=== PATIENT | female | born 1980 | race Hispanic/Latino ===

== ENCOUNTER 2017-08-17 18:57 | Emergency (ER) | payer SELFPAY ==
--- NOTE | 2017-08-17 21:08 | ER ---
Nurse's Notes [facility] Name: Etelvina Salcedo Age: 36 yrs Sex: Female : 1980 Arrival Date: 08/17/2017 Time: 18:58 Bed Waiting Private MD: Miguel Ángel Ramírez E Diagnosis: Presentation: 08/17 19:44 Presenting complaint: Patient states: Flu like symptoms for 2 days. Transition of care: aj patient was not received from another setting of care. Onset of symptoms was August 15, 2017. Care prior to arrival: None. 19:44 Method Of Arrival: Ambulatory 19:44 Acuity: EARLINE 4 Triage Assessment: 19:45 General: Appears in no apparent distress. comfortable, Behavior is calm, cooperative, aj appropriate for age. Pain: Denies pain. EENT: Reports nasal congestion nasal discharge. Neuro: Level of Consciousness is awake, alert, obeys commands, Oriented to person, place, time, situation. Respiratory: Reports cough that is Airway is patent Respiratory effort is even, unlabored, Respiratory pattern is regular, symmetrical. Derm: Skin is intact, is healthy with good turgor, Skin is pink, warm \T\ dry. normal. 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 - Social history:: Smoking status: Patient/guardian denies using tobacco. Vital Signs: 19:45 BP 142 / 84; Pulse 95; Resp 20; Temp 98.1; Pulse Ox 100% on R/A; Weight 101.15 kg; aj Height 5 ft. 2 in. (157.48 cm); 19:45 Body Mass Index 40.79 (101.15 kg, 157.48 cm) ED Course: 18:58 Patient arrived in ED. as 18:58 Miguel Ángel Ramírez MD is Private Physician. as 19:45 Triage completed. aj 19:45 Arm band placed on left wrist. Patient placed in waiting room, Patient notified of wait aj time. Labs ordered per protocol. 20:10 Patient's name was called from ER lobby. No response. lp1 21:06 Patient's name was called from ER lobby. No response. Unable to locate patient. Will aj disposition as left without being seen by a provider. 21:07 Barrera Weaver MD is Attending Physician. aj Administered Medications: No medications were administered Outcome: 21:06 Eloped from waiting room, before seeing physician Time discovered patient gone: August aj 2017 at 21:07 21:07 Patient left the ED. aj Signatures: Christine Corey, RN RN aj Kendy Chicas Laura, RN RN lp1
[2017-08-17 21:18] VITALS: BP 142/84; TEMP 98.1; O2SAT 100
== END 2017-08-17 21:07 | disposition left against medical advice (07) ==
LOC: ER 18:57
DX: Z53.21 Procedure and treatment not carried out due to patient leaving prior to being seen by health care provider (principal)
CPT/HCPCS: 87804; 99282

== ENCOUNTER 2017-08-21 10:14 | Emergency (ER) | payer OTHER ==
[2017-08-21] MEDS ORDERED: ACETAMINOPHEN 160 MG/5 ML UCUP ONE (10:24)
--- NOTE | 2017-08-21 11:52 | ER ---
Nurse's Notes [facility] Name: Etelvina Salcedo Age: 36 yrs Sex: Female : 1980 Arrival Date: 08/21/2017 Time: 10:15 Bed 12 Private MD: Diagnosis: Cough;Acute pharyngitis Presentation: 08/21 10:39 Presenting complaint: Patient states: "I Have been sick with fever, coughing, and lk1 throwing up since last week. I was here Monday and I left. I went to urgent care last night and got a Toradol shot in my butt. I woke up in the middle of the night with cramps in my leg and now my leg hurts. I think I am having a reaction to the shot. The doctor last night gave me medicines that I haven't picked up yet and they told me to take over the counter cough medicine. My flu test was negative". Transition of care: patient was not received from another setting of care. Onset of symptoms was August 17, 2017. Care prior to arrival: None. 10:39 Method Of Arrival: Ambulatory lk1 10:39 Acuity: EARLINE 4 lk1 11:15 Initial Sepsis Screen: Does the patient meet any 2 criteria? No. Patient's initial iw sepsis screen is negative. Does the patient have a suspected source of infection? No. Patient initial sepsis screen negative. Triage Assessment: 10:43 General: Appears ill, Behavior is calm, cooperative, appropriate for age. Pain: lk1 Complains of pain in head Pain currently is 7 out of 10 on a pain scale. GI: Reports nausea. 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 - Social history:: Smoking status: Patient/guardian denies using tobacco. - Family history:: not pertinent. - Hospitalizations: : No recent hospitalization is reported. Screenin:30 Abuse screen: Denies threats or abuse. Denies injuries from another. Nutritional iw screening: No deficits noted. Tuberculosis screening: No symptoms or risk factors identified. Fall Risk None identified. Assessment: 11:30 General: Appears in no apparent distress. Behavior is calm, cooperative. Pain: iw Complains of pain in throat. Neuro: Level of Consciousness is awake, alert, obeys commands, Moves all extremities. Full function. Cardiovascular: Patient's skin is warm and dry. GI: Abdomen is non-distended. Derm: Skin is pink, warm \\T\\ dry. normal. Musculoskeletal: Range of motion: intact in all extremities. Vital Signs: 10:43 BP 114 / 69; Pulse 92; Resp 16; Temp 96.6(TE); Pulse Ox 100% on R/A; Weight 102.51 kg lk1 (R); Height 5 ft. 2 in. (157.48 cm) (R); Pain 7/10; 10:43 Body Mass Index 41.34 (102.51 kg, 157.48 cm) lk1 ED Course: 10:15 Patient arrived in ED. as 10:42 Triage completed. lk1 10:46 Arm band placed on right wrist. lk1 11:21 Aamir Harrington MD is Attending Physician. rn 11:30 Patient has correct armband on for positive identification. iw 11:30 No provider procedures requiring assistance completed. Patient did not have IV access iw during this emergency room visit. 12:06 Audrey Arambula, RN is Primary Nurse. iw Administered Medications: No medications were administered Outcome: 11:52 Discharge ordered by . rn 12:05 Discharged to home ambulatory. iw 12:05 Condition: good 12:05 Discharge instructions given to patient, Instructed on discharge instructions, follow up and referral plans. medication usage, Demonstrated understanding of instructions, follow-up care, medications, Prescriptions given X 1. 12:06 Patient left the ED. iw Signatures: Kendy Chicas as Audrey Arambula, RN RN iw Aamir Harrington MD MD rn Kluge, Leah, RN RN lk1
--- NOTE | 2017-08-21 11:52 | EDPHYS ---
Physician Documentation [facility] Name: Etelvina Salcedo Age: 36 yrs Sex: Female : 1980 Arrival Date: 08/21/2017 Time: 10:15 Bed 12 Private MD: ED Physician Aamir Harrington HPI: 08/21 11:47 This 36 yrs old Female presents to ER via Ambulatory with complaints of Leg rn Pain, Fever, Cough, Vomiting. 11:48 The patient or guardian reports cough, described as moderate, with productive sputum, rn that is green. 11:48 Onset: The symptoms/episode began/occurred 1 week(s) ago. Severity of symptoms: At rn their worst the symptoms were moderate, in the emergency department the symptoms are unchanged. Associated signs and symptoms: Pertinent positives: sore throat. The patient has experienced a previous episode. The patient has been recently seen by a physician: The patient has been recently seen at an urgent care. Reports 1 week of cough, congestion, sore throat, can't stop coughing, no fever, + green sputum, told to take OTC meds by urgent care, still coughing, no lung issues, non-smoker, no hx of dvt/pe. . 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 - Social history:: Smoking status: Patient/guardian denies using tobacco. - Family history:: not pertinent. - Hospitalizations: : No recent hospitalization is reported. ROS: 11:48 Constitutional: Negative for fever, chills, and weight loss, Eyes: Negative for injury, rn pain, redness, and discharge, ENT: + sore throat and congestion Neck: Negative for injury, pain, and swelling, Cardiovascular: Negative for chest pain, palpitations, and edema, Respiratory: Negative for wheezing, and pleuritic chest pain, Abdomen/GI: Negative for abdominal pain, nausea, vomiting, diarrhea, and constipation, Back: Negative for injury and pain, MS/Extremity: Negative for injury and deformity, Skin: Negative for injury, rash, and discoloration, Neuro: Negative for headache, weakness, numbness, tingling, and seizure. Exam: 11:48 Constitutional: This is a well developed, well nourished patient who is awake, alert, rn and in no acute distress. Head/Face: Normocephalic, atraumatic. Eyes: Pupils equal round and reactive to light, extra-ocular motions intact. Lids and lashes normal. Conjunctiva and sclera are non-icteric and not injected. Cornea within normal limits. Periorbital areas with no swelling, redness, or edema. ENT: + mild pharyngeal erythema, no stridor, no masses Neck: Trachea midline, no thyromegaly or masses palpated, and no cervical lymphadenopathy. Supple, full range of motion without nuchal rigidity, or vertebral point tenderness. No Meningismus. Cardiovascular: Regular rate and rhythm with a normal S1 and S2. No gallops, murmurs, or rubs. Normal PMI, no JVD. No pulse deficits. Respiratory: Lungs have equal breath sounds bilaterally, clear to auscultation and percussion. No rales, rhonchi or wheezes noted. No increased work of breathing, no retractions or nasal flaring. MS/ Extremity: Pulses equal, no cyanosis. Neurovascular intact. Full, normal range of motion. Equal circumference. Neuro: Awake and alert, GCS 15, oriented to person, place, time, and situation. Cranial nerves II-XII grossly intact. Motor strength 5/5 in all extremities. Sensory grossly intact. Cerebellar exam normal. Normal gait. Vital Signs: 10:43 BP 114 / 69; Pulse 92; Resp 16; Temp 96.6(TE); Pulse Ox 100% on R/A; Weight 102.51 kg lk1 (R); Height 5 ft. 2 in. (157.48 cm) (R); Pain 7/10; 10:43 Body Mass Index 41.34 (102.51 kg, 157.48 cm) lk1 MDM: 11:21 Patient medically screened. rn 11:48 Differential Diagnosis: Bronchitis Upper Respiratory Infection Sinusitis Pharyngitis rn Viral Syndrome Pneumonia. Data reviewed: vital signs, nurses notes, and as a result, I will discharge patient. Counseling: I had a detailed discussion with the patient and/or guardian regarding: the historical points, exam findings, and any diagnostic results supporting the discharge/admit diagnosis, the need for outpatient follow up, to return to the emergency department if symptoms worsen or persist or if there are any questions or concerns that arise at home. Special discussion: I discussed with the patient/guardian in detail that at this point there is no indication for admission to the hospital. It is understood, however, that if the symptoms persist or worsen the patient needs to return immediately for re-evaluation. Administered Medications: No medications were administered Disposition: 08/21/17 11:52 Discharged to Home. Impression: Cough, Acute pharyngitis. - Condition is Stable. - Discharge Instructions: Pharyngitis, Cough, Adult. - Prescriptions for Zithromax Z- Joe 250 mg Oral Tablet - take 1 tablet by ORAL route as directed for 5 days Day 1 - take two (2) tablets one time. Day 2, 3, 4 , 5 take one (1) tablet once daily.; 6 tablet. - Medication Reconciliation Form, Thank You Letter, Antibiotic Education, Prescription Opioid Use form. - Follow up: Private Physician; When: As needed; Reason: Recheck today's complaints, Re-evaluation by your physician. - Problem is an ongoing problem. - Symptoms have improved. Signatures: Audrey Arambula, RN Aamir Munson MD MD rn Kluge, Leah, RN RN lk1
[2017-08-21 12:16] VITALS: BP 114/69; TEMP 96.6; O2SAT 100
== END 2017-08-21 12:06 | disposition home or self-care (01) ==
LOC: ER 10:14
DX: J02.9 Acute pharyngitis, unspecified (principal)
CPT/HCPCS: 99282

== ENCOUNTER 2018-04-06 17:52 | Emergency (ER) | payer SELFPAY ==
[2018-04-06] MEDS ORDERED: MORPHINE 4 MG/ML SYR ONE (18:35)
[2018-04-06] MEDS ORDERED: ONDANSETRON 4 MG (ODT) TAB ONE (18:36)
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
[2018-04-06] MEDS ORDERED: HYDROCODONE/APAP 5/325 MG TAB ONE (21:18)
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
[2018-04-06 23:40] VITALS: BP 139/91; TEMP 98.8; O2SAT 98
== END 2018-04-06 22:06 | disposition home or self-care (01) ==
LOC: ER 17:52
DX: S13.4XXA Sprain of ligaments of cervical spine, initial encounter (principal); V49.40XA Driver injured in collision with unspecified motor vehicles in traffic accident, initial encounter
CPT/HCPCS: 70450; 71250; 72125; 96372; 99285

== ENCOUNTER 2018-07-24 15:29 | Emergency (ER) | payer SELFPAY ==
[2018-07-24 16:58] LABS: Absolute Lymphocytes (CBC) 4.1 K/uL (0.7-4.9); Absolute Monocytes 0.8 K/uL (0.1-1.3); Absolute Neutrophil 4.4 K/uL (1.8-8.0); Basophils % 0.3 % (0-1.3); Eosinophils % 2.4 % (0-4.4); Hematocrit 44.2 % (36.0-45.0); Lymphocytes % 42.7 % (15.3-44.8); MPV 8.6 fL (7.6-11.3); Monocytes % 8.8 % (3.3-12.3); RBC Red Blood Cell Count 4.72 M/uL (3.86-4.86)
[2018-07-24 17:04] LABS: ALT/SGPT 22 U/L (12-78); AST/SGOT 18 U/L (15-37); Albumin 3.7 g/dL (3.4-5.0); Alkaline Phosphatase 151 U/L (45-117); BUN Blood Urea Nitrogen 16 mg/dL (7-18); Bicarbonate 28 mmol/L (21-32); Bilirubin Direct 0.1 mg/dL (0-0.2); Bilirubin Total 0.4 mg/dL (0.2-1.0); Glucose Level 63 mg/dL (74-106); Magnesium 2.3 mg/dL (1.8-2.4); NT PRO-BNP 45 pg/mL (<125); Potassium 4.3 mmol/L (3.5-5.1); Protein, Total 7.4 g/dL (6.4-8.2); Sodium Level 139 mmol/L (136-145); Troponin (Emerg Dept Use Only) < 0.02 ng/mL (0.0-0.045)
--- NOTE | 2018-07-24 17:13 | EDPHYS ---
Physician Documentation [facility] Name: Etelvina Salcedo Age: 37 yrs Sex: Female : 1980 Arrival Date: 07/24/2018 Time: 15:32 Bed 24 Private MD: Miguel Ángel Ramírez E ED Physician Barrera Weaver HPI: 07/24 16:23 This 37 yrs old Female presents to ER via Ambulatory with complaints of Back kristian Pain, Shoulder numbness. 16:23 The patient presents with pain left shoulder discomfort. The symptoms are located in kristian the left scapular area. Onset: The symptoms/episode began/occurred today. The pain radiates to the anterior aspect of left shoulder, left bicep, posterior aspect of left shoulder and left tricep. Associated signs and symptoms: The patient has no apparent associated signs or symptoms. Modifying factors: The patient symptoms are alleviated by nothing, the patient symptoms are aggravated by nothing. Severity of symptoms: At their worst the symptoms were mild, in the emergency department the symptoms are unchanged. The patient has not experienced similar symptoms in the past. 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 - Social history:: Smoking status: unknown. - Family history:: not pertinent. - Ebola Screening: : No symptoms or risks identified at this time. ROS: 16:23 Constitutional: Negative for fever, chills, and weight loss, Eyes: Negative for injury, kristian pain, redness, and discharge, ENT: Negative for injury, pain, and discharge, Neck: Negative for injury, pain, and swelling, Cardiovascular: Negative for chest pain, palpitations, and edema, Respiratory: Negative for shortness of breath, cough, wheezing, and pleuritic chest pain, Abdomen/GI: Negative for abdominal pain, nausea, vomiting, diarrhea, and constipation, Back: Negative for injury and pain, : Negative for injury, bleeding, discharge, and swelling, Skin: Negative for injury, rash, and discoloration, Neuro: Negative for headache, weakness, numbness, tingling, and seizure, Psych: Negative for depression, anxiety, suicide ideation, homicidal ideation, and hallucinations, Allergy/Immunology: Negative for hives, rash, and allergies, Endocrine: Negative for neck swelling, polydipsia, polyuria, polyphagia, and marked weight changes. 16:23 MS/extremity: Positive for tingling, of the left arm. Exam: 16:26 Constitutional: This is a well developed, well nourished patient who is awake, alert, kristian and in no acute distress. Head/Face: Normocephalic, atraumatic. Eyes: Pupils equal round and reactive to light, extra-ocular motions intact. Lids and lashes normal. Conjunctiva and sclera are non-icteric and not injected. Cornea within normal limits. Periorbital areas with no swelling, redness, or edema. ENT: Nares patent. No nasal discharge, no septal abnormalities noted. Tympanic membranes are normal and external auditory canals are clear. Oropharynx with no redness, swelling, or masses, exudates, or evidence of obstruction, uvula midline. Mucous membranes moist. Neck: Trachea midline, no thyromegaly or masses palpated, and no cervical lymphadenopathy. Supple, full range of motion without nuchal rigidity, or vertebral point tenderness. No Meningismus. Chest/axilla: Normal chest wall appearance and motion. Nontender with no deformity. No lesions are appreciated. Cardiovascular: Regular rate and rhythm with a normal S1 and S2. No gallops, murmurs, or rubs. Normal PMI, no JVD. No pulse deficits. Respiratory: Lungs have equal breath sounds bilaterally, clear to auscultation and percussion. No rales, rhonchi or wheezes noted. No increased work of breathing, no retractions or nasal flaring. Abdomen/GI: Soft, non-tender, with normal bowel sounds. No distension or tympany. No guarding or rebound. No evidence of tenderness throughout. Back: No spinal tenderness. No costovertebral tenderness. Full range of motion. Skin: Warm, dry with normal turgor. Normal color with no rashes, no lesions, and no evidence of cellulitis. MS/ Extremity: Pulses equal, no cyanosis. Neurovascular intact. Full, normal range of motion. Neuro: Awake and alert, GCS 15, oriented to person, place, time, and situation. Cranial nerves II-XII grossly intact. Motor strength 5/5 in all extremities. Sensory grossly intact. Cerebellar exam normal. Normal gait. Psych: Awake, alert, with orientation to person, place and time. Behavior, mood, and affect are within normal limits. 16:26 Musculoskeletal/extremity: DVT Exam: No signs of deep vein thrombosis. no pain, no swelling, no tenderness, negative Homans' sign noted on exam, no appreciated bluish discoloration, no erythema, no increased warmth. Vital Signs: 15:45 BP 122 / 77; Pulse 90; Resp 18; Temp 97.5; Pulse Ox 99% ; Weight 99.79 kg; Height 5 ft. sv 2 in. (157.48 cm); Pain 6/10; 16:45 BP 122 / 77; Pulse 71; Resp 20; Temp 98.3; Pulse Ox 100% ; lt1 17:44 BP 121 / 78; Pulse 80; Resp 18; Pulse Ox 100% on R/A; Pain 0/10; mg2 15:45 Body Mass Index 40.24 (99.79 kg, 157.48 cm) sv MDM: 15:47 Patient medically screened. [facility] 16:26 Data reviewed: vital signs, nurses notes, lab test result(s), EKG, radiologic studies, kristian plain films. 07/24 16:23 Order name: Basic Metabolic Panel; Complete Time: 17:10 [facility] 07/24 16:23 Order name: CBC with Diff; Complete Time: 17:10 [facility] 07/24 16:23 Order name: LFT's; Complete Time: 17:10 [facility] 07/24 16:23 Order name: Magnesium; Complete Time: 17:10 [facility] 07/24 16:23 Order name: NT PRO-BNP; Complete Time: 17:10 [facility] 07/24 16:23 Order name: Troponin (emerg Dept Use Only); Complete Time: 17:10 [facility] 07/24 16:23 Order name: XRAY Chest (1 view) [facility] 07/24 16:23 Order name: EKG; Complete Time: 16:24 [facility] 07/24 16:23 Order name: D-Dimer; Complete Time: 17:10 [facility] 07/24 17:16 Order name: Glucose, Ancillary Testing EDMS 07/24 17:33 Order name: Urine Dipstick--Ancillary (enter results) bd 07/24 17:34 Order name: Urine --Ancillary (enter results) 07/24 17:42 Order name: Glucose, Ancillary Testing EDNH 07/24 16:03 Order name: EKG - Nurse/Tech; Complete Time: 16:03 [facility] 07/24 16:23 Order name: Cardiac monitoring; Complete Time: 16:41 kristian 07/24 16:23 Order name: IV Saline Lock; Complete Time: 16:41 kristian 07/24 16:23 Order name: Labs collected and sent; Complete Time: 16:41 [facility] 07/24 16:23 Order name: O2 Per Protocol; Complete Time: 16:41 [facility] 07/24 16:23 Order name: O2 Sat Monitoring; Complete Time: 17:35 [facility] 07/24 16:27 Order name: Blood Glucose Level; Complete Time: 16:40 [facility] 07/24 16:27 Order name: PO challenge: juice; Complete Time: 16:40 [facility] 07/24 16:28 Order name: Urine Dipstick-Ancillary (obtain specimen); Complete Time: 17:28 [facility] 07/24 16:28 Order name: Urine Test (obtain specimen); Complete Time: 17:28 [facility] Administered Medications: 17:28 Drug: TORadol 30 mg Route: IVP; Site: right wrist; mg2 17:45 Follow up: Response: No adverse reaction; Marked relief of symptoms mg2 18:00 Follow up: Response: No adverse reaction; Marked relief of symptoms mg2 Point of Care Testing: Blood Glucose: 16:40 Blood Glucose: 62 mg/dL; mg2 17:44 Blood Glucose: 80 mg/dL; mg2 Ranges: Critical Glucose Levels:Adult <50 mg/dl or >400 mg/dl <40 mg/dl or >180 mg/dl Disposition: 07/24/18 17:13 Discharged to Home. Impression: Chest pain, unspecified - non cardiac, Hypoglycemia, unspecified. - Condition is Stable. - Discharge Instructions: Nonspecific Chest Pain, Hypoglycemia, Nonspecific Chest Pain, Wtmo-dr-Morf, Aspirin and Your Heart, Hypoglycemia, [id number]. - Prescriptions for Tylenol- Codeine #3 300-30 mg Oral Tablet - take 2 tablets by ORAL route every 6 hours As needed; 24 tablet. - Medication Reconciliation Form, Thank You Letter, Antibiotic Education, Prescription Opioid Use form. - Follow up: Miguel Ángel Ramírez; When: 2 - 3 days; Reason: Recheck today's complaints, Continuance of care, Re-evaluation by your physician. - Problem is new. - Symptoms have improved. Signatures: Dispatcher [employer] Julia Sharma, RN RN Barrera Esquivel MD MD cha Gardose, Michele, RN RN mg2 Corrections: (The following items were deleted from the chart) 17:46 17:13 07/24/2018 17:13 Discharged to Home. Impression: Chest pain, unspecified - non mg2 cardiac; Hypoglycemia, unspecified. Condition is Stable. Discharge Instructions: Nonspecific Chest Pain, Hypoglycemia, Nonspecific Chest Pain, [id number], Aspirin and Your Heart, Hypoglycemia, [id number]. Forms are Medication Reconciliation Form, Thank You Letter, Antibiotic Education, Prescription Opioid Use. Follow up: Miguel Ángel Ramírez; When: 2 - 3 days; Reason: Recheck today's complaints, Continuance of care, Re-evaluation by your physician. Problem is new. Symptoms have improved. kristian
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
--- NOTE | 2018-07-24 17:17 | RAD REPORT ---
EXAM DESCRIPTION: Ila Single View07/24/2018 4:45 pm CLINICAL HISTORY: Chest pain COMPARISON: 2017 FINDINGS: The lungs appear clear of acute infiltrate. The heart is normal size IMPRESSION: No acute abnormalities displayed
[2018-07-24] MEDS ORDERED: KETOROLAC 30 MG/ML INJ ONE (17:34)
[2018-07-24 17:38] LABS: Urine Blood NEGATIVE (NEG); Urine Glucose NEGATIVE (NEG); Urine Protein NEGATIVE (NEG); Urine pH 5.5 (5.0-7.0)
[2018-07-24 17:52] VITALS: TEMP 98.3; O2SAT 100
[2018-07-24 17:53] VITALS: BP 121/78
--- NOTE | 2018-07-25 07:45 | EKG ---
Test Date: 2018-07-24 Test Time: 16:00:51 Stress Engineer: ABNER MEASUREMENT RESULTS: Intervals: Rate: 76 MI: 130 QRSD: 72 QT: 382 QTc: 429 [place]: P: 60 MI: 130 QRS: 33 T: 21 INTERPRETIVE STATEMENTS: Normal sinus rhythm Normal ECG Compared to ECG 10/23/2016 16:49:38 no significant change from previous ECG Electronically Signed On 07-25-18 07:44:48 CDT by Fabricio Graham
== END 2018-07-24 17:46 | disposition home or self-care (01) ==
LOC: ER 15:29
DX: R07.9 Chest pain, unspecified (principal); E16.2 Hypoglycemia, unspecified
CPT/HCPCS: 36415; 71045; 80048; 80076; 81003; 81025; 82962; 83735; 83880; 84484; 85025; 85379; 93005; 96374; 99284

== ENCOUNTER 2018-08-06 15:56 | Emergency (ER) | payer SELFPAY ==
[2018-08-06] MEDS ORDERED: ONDANSETRON 4 MG/2 ML VIAL ONE (17:28)
[2018-08-06] MEDS ORDERED: NA CHLORIDE 0.9% 1,000 ML ONE (17:28)
[2018-08-06 17:43] LABS: Absolute Lymphocytes (CBC) 2.9 K/uL (0.7-4.9); Absolute Monocytes 0.7 K/uL (0.1-1.3); Absolute Neutrophil 3.9 K/uL (1.8-8.0); Basophils % 0.4 % (0-1.3); Eosinophils % 2.2 % (0-4.4); Hematocrit 42.4 % (36.0-45.0); Lymphocytes % 37.9 % (15.3-44.8); MPV 8.4 fL (7.6-11.3); Monocytes % 9.1 % (3.3-12.3); RBC Red Blood Cell Count 4.54 M/uL (3.86-4.86)
[2018-08-06 17:59] LABS: ALT/SGPT 86 U/L (12-78); AST/SGOT 31 U/L (15-37); Albumin 3.7 g/dL (3.4-5.0); Alkaline Phosphatase 216 U/L (45-117); BUN Blood Urea Nitrogen 17 mg/dL (7-18); Bicarbonate 30 mmol/L (21-32); Bilirubin Direct 0.1 mg/dL (0-0.2); Bilirubin Total 0.4 mg/dL (0.2-1.0); Glucose Level 80 mg/dL (74-106); Lipase 92 U/L (73-393); Potassium 3.9 mmol/L (3.5-5.1); Protein, Total 7.4 g/dL (6.4-8.2); Sodium Level 142 mmol/L (136-145)
--- NOTE | 2018-08-06 18:32 | EDPHYS ---
Physician Documentation [facility] Name: Etelvina Salcedo Age: 37 yrs Sex: Female : 1980 Arrival Date: 08/06/2018 Time: 15:59 Bed 20 Private MD: ED Physician Aguila Caldwell HPI: 08/06 16:32 This 37 yrs old Female presents to ER via Ambulatory with complaints of Rash, jmm Vomiting. 16:32 The patient's rash thought to be caused by an unknown cause. Onset: The jmm symptoms/episode began/occurred gradually, 2 day(s) ago. 18:33 This is a 37 year old female with a history of anemia, hypothyroidism that presents to [facility] the ED with complaints of painful rash to her left upper back and multiple episode of vomiting beginning approx 2 days ago. Patient denies abdominal pain. patient recently visited the ED due to numbness to the same region on the 24 of july. . Historical: - Allergies: 16:00 No Known Allergies; sv - PMHx: 16:00 Hypokalemia; Hypothyroidism; Low Iron; PCOS; sv - PSHx: 16:00 Cholecystectomy; Appendectomy; Gastric Bypass; sv - Immunization history:: Adult Immunizations unknown. - Social history:: Smoking status: Patient/guardian denies using tobacco. - Ebola Screening: : No symptoms or risks identified at this time. ROS: 18:33 Constitutional: Negative for fever, chills, and weight loss, Eyes: Negative for injury, jmm pain, redness, and discharge, Cardiovascular: Negative for chest pain, palpitations, and edema, Respiratory: Negative for shortness of breath, cough, wheezing, and pleuritic chest pain. 18:33 Back: Negative for injury and pain. 18:33 Abdomen/GI: Positive for vomiting. 18:33 Skin: Positive for rash. 18:33 All other systems are negative. Exam: 18:33 Constitutional: This is a well developed, well nourished patient who is awake, alert, jmm and in no acute distress. Head/Face: atraumatic. Eyes: EOMI, no conjunctival erythema appreciated ENT: Moist Mucus Membranes Neck: Trachea midline, Supple Chest/axilla: Normal chest wall appearance and motion. Cardiovascular: Regular rate and rhythm. No edema appreciated Respiratory: Normal respirations, no respiratory distress appreciated 18:33 Back: Normal ROM 18:33 Abdomen/GI: Inspection: obese Palpation: abdomen is soft and non-tender, in all quadrants. 18:33 Skin: vesicular lesions noted to the left posterior shoulder and the left lateral rib cage. no induration appreciated. . 18:33 Neuro: Orientation: is normal, Mentation: is normal, Memory: is normal. 18:33 Psych: Behavior/mood is pleasant, cooperative. Vital Signs: 16:00 BP 113 / 77; Pulse 81; Resp 18; Temp 97.7; Pulse Ox 99% ; Weight 99.79 kg; Height 5 ft. sv 2 in. (157.48 cm); Pain 0/10; 17:30 BP 118 / 76; Pulse 78; Resp 16; Pulse Ox 99% on R/A; ph 18:23 BP 115 / 79; Pulse 75; Resp 18; Temp 97.5; Pulse Ox 99% on R/A; ph 16:00 Body Mass Index 40.24 (99.79 kg, 157.48 cm) sv MDM: 16:32 Patient medically screened. [facility] 18:30 Data reviewed: vital signs, nurses notes. Counseling: I had a detailed discussion with lamine the patient and/or guardian regarding: the historical points, exam findings, and any diagnostic results supporting the discharge/admit diagnosis, lab results, the need for outpatient follow up, to return to the emergency department if symptoms worsen or persist or if there are any questions or concerns that arise at home. ED course: Patient has no abdominal pain. Patient is able to tolerate PO in the ED. Bariatric surgery 2 years prior. I do not currently suspect obstruction. Patient given strict return precautions. Patient understood and agrees with the plan of care. . 04 16:30 Order name: Basic Metabolic Panel; Complete Time: 18:02 [facility] 08/06 16:30 Order name: CBC with Diff; Complete Time: 18:02 [facility] 08/06 16:30 Order name: Creatinine for Radiology; Complete Time: 18:02 [facility] 08/06 16:30 Order name: Hepatic Function; Complete Time: 18:02 [facility] 08/06 16:30 Order name: Lipase; Complete Time: 18:02 [facility] 08/06 16:30 Order name: IV Saline Lock; Complete Time: 17:28 [facility] 08/06 16:30 Order name: Labs collected and sent; Complete Time: 17:28 [facility] 08/06 18:02 Order name: PO challenge; Complete Time: 18:19 [facility] Administered Medications: 17:28 Drug: Zofran 4 mg Route: IVP; Site: right antecubital; ph 18:18 Follow up: Response: No adverse reaction ph 17:28 Drug: NS 0.9% 1000 ml Route: IV; Rate: 1 bolus; Site: right antecubital; ph 18:19 Follow up: Response: No adverse reaction; IV Status: Completed infusion ph Disposition: 08/06/18 18:31 Discharged to Home. Impression: Zoster [herpes zoster], Vomiting. - Condition is Stable. - Discharge Instructions: Nausea and Vomiting, Adult, Shingles. - Prescriptions for Tylenol- Codeine #3 300-30 mg Oral Tablet - take 1 tablet by ORAL route every 6 hours As needed; 12 tablet. Zofran 4 mg Oral Tablet - take 1 tablet by ORAL route every 12 hours As needed; 20 tablet. Acyclovir 800 mg Oral Tablet - take 1 tablet by ORAL route 5 times per day for 10 days; 50 tablet. - Medication Reconciliation Form, Thank You Letter, Antibiotic Education, Prescription Opioid Use form. - Follow up: Private Physician; When: 2 - 3 days; Reason: Recheck today's complaints, Continuance of care, Re-evaluation by your physician. Signatures: Dispatcher [employer] Julia Sharma, RN RN Mainor Matute PA PA Kenzie Carrillo RN RN ph Corrections: (The following items were deleted from the chart) 18:53 18:31 08/06/2018 18:31 Discharged to Home. Impression: Zoster [herpes zoster]; ph Vomiting. Condition is Stable. Forms are Medication Reconciliation Form, Thank You Letter, Antibiotic Education, Prescription Opioid Use. Follow up: Private Physician; When: 2 - 3 days; Reason: Recheck today's complaints, Continuance of care, Re-evaluation by your physician. [facility]
--- NOTE | 2018-08-06 18:32 | ER ---
Nurse's Notes [facility] Name: Etelvina Salcedo Age: 37 yrs Sex: Female : 1980 Arrival Date: 08/06/2018 Time: 15:59 Bed 20 Private MD: Diagnosis: Zoster [herpes zoster];Vomiting Presentation: 08/06 15:59 Presenting complaint: Patient states: rash x 3 days and started vomiting today. sv Transition of care: patient was not received from another setting of care. Onset of symptoms was August 03, 2018. Care prior to arrival: None. 15:59 Method Of Arrival: Ambulatory sv 15:59 Acuity: EARLINE 3 sv 18:17 Risk Assessment: Do you want to hurt yourself or someone else? Patient reports no ph desire to harm self or others. Initial Sepsis Screen: Does the patient meet any 2 criteria? No. Patient's initial sepsis screen is negative. Does the patient have a suspected source of infection? No. Patient's initial sepsis screen is negative. Triage Assessment: 16:01 General: Appears in no apparent distress. uncomfortable, Behavior is calm, cooperative, sv appropriate for age. Pain: Denies pain. Neuro: Level of Consciousness is awake, alert, obeys commands, Oriented to person, place, time, situation, Gait is steady. Respiratory: Respiratory effort is even, unlabored, Respiratory pattern is regular, symmetrical. GI: Reports vomiting. Derm: Reports rash under breasts. Historical: - Allergies: 16:00 No Known Allergies; sv - PMHx: 16:00 Hypokalemia; Hypothyroidism; Low Iron; PCOS; sv - PSHx: 16:00 Cholecystectomy; Appendectomy; Gastric Bypass; sv - Immunization history:: Adult Immunizations unknown. - Social history:: Smoking status: Patient/guardian denies using tobacco. - Ebola Screening: : No symptoms or risks identified at this time. Screenin:16 Abuse screen: Denies threats or abuse. Denies injuries from another. Nutritional ph screening: No deficits noted. Tuberculosis screening: No symptoms or risk factors identified. Fall Risk None identified. Assessment: 16:30 Pain: Complains of pain in left lateral posterior chest and left lateral anterior ph chest. Neuro: Level of Consciousness is awake, alert, obeys commands, Oriented to person, place, time, situation. Cardiovascular: Capillary refill < 3 seconds in bilateral fingers Patient's skin is warm and dry. Respiratory: Airway is patent Respiratory effort is even, unlabored, Respiratory pattern is regular, symmetrical. GI: Abdomen is round non-distended, Reports nausea, vomiting, Patient currently denies abdominal pain, diarrhea. Derm: Skin is intact, is healthy with good turgor, Skin is pink, warm \T\ dry. Rash noted that is red, raised, urticaria, vesicular. Musculoskeletal: Circulation, motion, and sensation intact. Range of motion: intact in all extremities. 17:30 Reassessment: Patient appears in no apparent distress at this time. Patient and/or ph family updated on plan of care and expected duration. Pain level reassessed. Patient is alert, oriented x 3, equal unlabored respirations, skin warm/dry/pink. 18:21 Reassessment: Patient appears in no apparent distress at this time. Patient and/or ph family updated on plan of care and expected duration. Pain level reassessed. Patient is alert, oriented x 3, equal unlabored respirations, skin warm/dry/pink. Pt given juice for PO challenge, tolerating well, denies nausea. Vital Signs: 16:00 BP 113 / 77; Pulse 81; Resp 18; Temp 97.7; Pulse Ox 99% ; Weight 99.79 kg; Height 5 ft. sv 2 in. (157.48 cm); Pain 0/10; 17:30 BP 118 / 76; Pulse 78; Resp 16; Pulse Ox 99% on R/A; ph 18:23 BP 115 / 79; Pulse 75; Resp 18; Temp 97.5; Pulse Ox 99% on R/A; ph 16:00 Body Mass Index 40.24 (99.79 kg, 157.48 cm) sv ED Course: 15:59 Patient arrived in ED. sv 16:00 Triage completed. sv 16:01 Arm band placed on. sv 16:10 Mainor Matute PA is PHCP. [facility] 16:10 Aguila Caldwell MD is Attending Physician. [facility] 16:42 Kenzie Avendaño RN is Primary Nurse. ph 16:45 Inserted saline lock: 20 gauge in right antecubital area, using aseptic technique. ph 18:16 No provider procedures requiring assistance completed. ph 18:17 IV discontinued, intact, bleeding controlled, No redness/swelling at site. Pressure ph dressing applied. 18:18 Patient has correct armband on for positive identification. Bed in low position. Call ph light in reach. Side rails up X 1. Pulse ox on. NIBP on. Door closed. Noise minimized. Warm blanket given. Administered Medications: 17:28 Drug: Zofran 4 mg Route: IVP; Site: right antecubital; ph 18:18 Follow up: Response: No adverse reaction ph 17:28 Drug: NS 0.9% 1000 ml Route: IV; Rate: 1 bolus; Site: right antecubital; ph 18:19 Follow up: Response: No adverse reaction; IV Status: Completed infusion ph Outcome: 18:31 Discharge ordered by . lamine 18:49 Discharged to home ambulatory. ph 18:49 Condition: good 18:49 Discharge instructions given to patient, Instructed on discharge instructions, follow up and referral plans. medication usage, Demonstrated understanding of instructions, follow-up care, medications, Prescriptions given X 3. 18:53 Patient left the ED. ph Signatures: Julia Pérez, RN RN Mainor Matute PA PA jmm Hall, Patricia RN RN ph Corrections: (The following items were deleted from the chart) 16:02 16:00 Pulse 81bpm; Resp 18bpm; Pulse Ox 99%; Temp 97.7F; 99.79 kg; Height 5 ft. 2 in.; sv BMI: 40.2; Pain 0/10; sv 18:23 16:30 Derm: Skin is intact, is healthy with good turgor, Skin is pink, warm \T\ dry. ph ph
[2018-08-06 19:36] VITALS: O2SAT 99
[2018-08-06 19:39] VITALS: BP 115/79; TEMP 97.5
== END 2018-08-06 18:53 | disposition home or self-care (01) ==
LOC: ER 15:56
DX: B02.9 Zoster without complications (principal); R11.10 Vomiting, unspecified; E03.9 Hypothyroidism, unspecified; E87.6 Hypokalemia
CPT/HCPCS: 36415; 80048; 80076; 83690; 85025; 96361; 96374; 99284; J2405; J7030

== ENCOUNTER 2018-12-31 19:15 | Emergency (ER) | payer SELFPAY ==
[2018-12-31] MEDS ORDERED: HYDROCODONE/APAP 5/325 MG TAB ONE (19:39)
[2018-12-31] MEDS ORDERED: ONDANSETRON 4 MG/2 ML VIAL ONE (19:49)
[2018-12-31 20:14] LABS: Basophils % 0.4 % (0-1.3); Lymphocytes % 38.7 % (15.3-44.8); MPV 9.1 fL (7.6-11.3); RBC Red Blood Cell Count 4.39 M/uL (3.86-4.86)
[2018-12-31 20:18] LABS: ALT/SGPT 23 U/L (12-78); AST/SGOT 16 U/L (15-37); Albumin 3.7 g/dL (3.4-5.0); Alkaline Phosphatase 140 U/L (45-117); BUN Blood Urea Nitrogen 21 mg/dL (7-18); Bicarbonate 28 mmol/L (21-32); Bilirubin Total 0.4 mg/dL (0.2-1.0); Glucose Level 80 mg/dL (74-106); Potassium 3.8 mmol/L (3.5-5.1); Protein, Total 7.2 g/dL (6.4-8.2); Sodium Level 142 mmol/L (136-145)
--- NOTE | 2018-12-31 20:49 | RAD REPORT ---
EXAM DESCRIPTION: CT - Head Brain W/Wo Con - 12/31/2018 8:42 pm CLINICAL HISTORY: Seizure COMPARISON: None. TECHNIQUE: Axial 5 mm thick images of the head were obtained prior to and following non-ionic IV con trast. All CT scans are performed using dose optimization technique as appropriate and may include automated exposure control or mA/KV adjustment according to patient size. FINDINGS: No intracranial hemorrhage, mass, edema or shift of mid-line structures. No acute infarcti on changes seen. No abnormal extra-axial fluid collections. Post-contrast images show no abnormal enhancement. Mastoid air cells and visualized portions of the paranasal sinuses are clear. No acute bony findings. IMPRESSION: Negative contrast-enhanced CT head examination.
[2018-12-31] MEDS ORDERED: NA CHLORIDE 0.9% 1,000 ML ONE (21:48)
[2018-12-31 22:02] LABS: Urine Bacteria 20-50 /HPF (<20); Urine Culture Reflex Order REFLEXED; Urine Mucus 2+ /HPF (NONE SEEN); Urine RBC <5 /HPF (NONE SEEN)
--- NOTE | 2018-12-31 22:02 | ER ---
Nurse's Notes [facility] Name: Etelvina Salcedo Age: 38 yrs Sex: Female : 1980 Arrival Date: 12/31/2018 Time: 19:21 Bed 14 Private MD: Diagnosis: Epilepsy and recurrent seizures Presentation: 12/31 19:21 Presenting complaint: EMS states: EMS reports they were called to pt's residence by ph daughter who found pt on the ground convulsing, pt has no history of seizures. Pt was A and O x 2 upon EMS arrival. EMS noted swelling to left side of face and lip. Transition of care: patient was not received from another setting of care. Onset of symptoms was December 31, 2018. Risk Assessment: Do you want to hurt yourself or someone else? Patient reports no desire to harm self or others. Initial Sepsis Screen: Does the patient meet any 2 criteria? No. Patient's initial sepsis screen is negative. Does the patient have a suspected source of infection? No. Patient's initial sepsis screen is negative. Care prior to arrival: BGL 60. 19:21 Method Of Arrival: EMS: [facility] [place][note 2] 19:21 Acuity: EARLINE 3 Triage Assessment: 19:29 General: Appears in no apparent distress. Behavior is appropriate for age, quiet. Pain: ea Complains of pain in forehead and right cheek. Neuro: Level of Consciousness is awake, alert, obeys commands, Oriented to person, place, situation. Cardiovascular: Patient's skin is warm and dry. Respiratory: Airway is patent Respiratory effort is even, unlabored, Respiratory pattern is regular, symmetrical. Derm: Skin is pink, warm \T\ dry. Musculoskeletal: Circulation, motion, and sensation intact. 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 - Social history:: Smoking status: Patient/guardian denies using tobacco. - Ebola Screening: : No symptoms or risks identified at this time. Screenin:29 Abuse screen: Denies threats or abuse. Nutritional screening: No deficits noted. ea Tuberculosis screening: No symptoms or risk factors identified. Fall Risk None identified. Assessment: 19:29 Reassessment: see triage assessment. ea 20:24 Reassessment: Patient and/or family updated on plan of care and expected duration. Pain ea level reassessed. Patient is alert, oriented x 3, equal unlabored respirations, skin warm/dry/pink. 20:40 Reassessment: Patient and/or family updated on plan of care and expected duration. Pain ea level reassessed. Patient is alert, oriented x 3, equal unlabored respirations, skin warm/dry/pink. Pt returned from CT. 21:35 Reassessment: Patient and/or family updated on plan of care and expected duration. Pain ea level reassessed. Patient is alert, oriented x 3, equal unlabored respirations, skin warm/dry/pink. Provider at bedside updating pt on plan of care. 22:33 Reassessment: Patient and/or family updated on plan of care and expected duration. Pain ea level reassessed. Patient is alert, oriented x 3, equal unlabored respirations, skin warm/dry/pink. Discharge instruction given to patient, verbalized the understanding of instruction. Pt left ED ambulatory, accompanied by family, pt tolerating well. Vital Signs: 19:24 BP 130 / 94; Pulse 82; Resp 18; Temp 98.2; Pulse Ox 98% on R/A; Weight 99.79 kg; Height ph 5 ft. 2 in. (157.48 cm); 20:00 BP 130 / 89; Pulse 76; Resp 18; Pulse Ox 99% on R/A; ea 21:00 BP 129 / 84; Pulse 88; Resp 18; Temp 98; Pulse Ox 99% ; ea 22:00 BP 124 / 90; Pulse 78; Resp 18; Temp 98; Pulse Ox 98% ; ea 19:24 Body Mass Index 40.24 (99.79 kg, 157.48 cm) ph Ashley Coma Score: 19:29 Eye Response: spontaneous(4). Verbal Response: oriented(5). Motor Response: obeys ea commands(6). Total: 15. ED Course: 19:21 Patient arrived in ED. ph 19:23 Aguila Caldwell MD is Attending Physician. gs 19:24 Triage completed. ph 19:26 Patient has correct armband on for positive identification. Bed in low position. Call ph light in reach. Side rails up X2. 19:27 Arm band placed on right wrist. Patient placed in an exam room, on a stretcher, on ph pulse oximetry. 19:28 Seizure precautions initiated. ea 19:29 Adeola Graham, RN is Primary Nurse. ea 19:46 Initial lab(s) drawn, by dc, sent to lab. Inserted saline lock: 20 gauge in right jd2 antecubital area, using aseptic technique. Blood collected. 20:43 CT Head Brain w/wo Con In Process Unspecified. EDMS 21:41 Urine collected: clean catch specimen, clear. jd2 21:42 EKG done, by ED staff, reviewed by Aguila Caldwell MD. jd2 22:02 Tono Grande MD is Referral Physician. gs 22:30 No provider procedures requiring assistance completed. ea 22:33 IV discontinued, intact, bleeding controlled, No redness/swelling at site. Pressure ea dressing applied. Administered Medications: 19:40 Drug: [place] 5 mg-325 mg 1 tabs {Note: RASS 0.} Route: PO; ea 20:23 Follow up: Response: No adverse reaction; Pain is decreased; RASS: Alert and Calm (0) ea 19:53 Drug: Zofran 4 mg Route: IVP; Site: right antecubital; ea 20:22 Follow up: Response: No adverse reaction ea 21:55 Drug: NS 0.9% 1000 ml Route: IV; Rate: 1 bolus; Site: right antecubital; ea 22:35 Follow up: Response: No adverse reaction; IV Intake: 1000ml ea Point of Care Testing: Blood Glucose: 19:24 Blood Glucose: 85 mg/dL; ph Ranges: Intake: 22:35 IV: 1000ml; Total: 1000ml. ea Outcome: 22:02 Discharge ordered by . gs 22:33 Discharged to home ambulatory, with family. ea 22:33 Condition: stable 22:33 Discharge instructions given to patient, Instructed on discharge instructions, follow up and referral plans. Demonstrated understanding of instructions, follow-up care. 22:35 Patient left the ED. ea Signatures: Dispatcher [employer] EDKenzie Blackwood RN RN Farhan Looney j Adeola Graham RN RN Aguila Franklin MD MD gs
--- NOTE | 2018-12-31 22:03 | EDPHYS ---
Physician Documentation [facility] Name: Etelvina Salcedo Age: 38 yrs Sex: Female : 1980 Arrival Date: 12/31/2018 Time: 19:21 Bed 14 Private MD: ED Physician Aguila Caldwell HPI: 12/31 21:14 This 38 yrs old Female presents to ER via EMS with complaints of Seizure. gs 21:14 The patient presents after having a single isolated seizure. Character of seizure(s): gs Motor activity: generalized. Seizure onset: just prior to arrival, today. Context: the seizure(s) was witnessed, by family, daughter, occurred at home, occurred while the patient was standing. Seizure Hx: the patient has no previous seizure history. Associated injury: The patient did not suffer any apparent associated injury. The patient has not experienced similar symptoms in the past. The patient has not recently seen a physician. DENIES DRUGS AND ETOH USE. 21:59 HAS HAD SYNCOPE IN PAST SAYS FROM LOW BLOOD SUGAR HAS BEEN LOW 40'S. 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 - Social history:: Smoking status: Patient/guardian denies using tobacco. - Ebola Screening: : No symptoms or risks identified at this time. ROS: 21:14 All other systems are negative. gs Exam: 21:14 Head/Face: Normocephalic, atraumatic. Eyes: Pupils equal round and reactive to light, gs extra-ocular motions intact. Lids and lashes normal. Conjunctiva and sclera are non-icteric and not injected. Cornea within normal limits. Periorbital areas with no swelling, redness, or edema. ENT: Nares patent. No nasal discharge, no septal abnormalities noted. Tympanic membranes are normal and external auditory canals are clear. Oropharynx with no redness, swelling, or masses, exudates, or evidence of obstruction, uvula midline. Mucous membranes moist. Neck: Trachea midline, no thyromegaly or masses palpated, and no cervical lymphadenopathy. Supple, full range of motion without nuchal rigidity, or vertebral point tenderness. No Meningismus. Chest/axilla: Normal chest wall appearance and motion. Nontender with no deformity. No lesions are appreciated. Cardiovascular: Regular rate and rhythm with a normal S1 and S2. No gallops, murmurs, or rubs. Normal PMI, no JVD. No pulse deficits. Respiratory: Lungs have equal breath sounds bilaterally, clear to auscultation and percussion. No rales, rhonchi or wheezes noted. No increased work of breathing, no retractions or nasal flaring. Abdomen/GI: Soft, non-tender, with normal bowel sounds. No distension or tympany. No guarding or rebound. No evidence of tenderness throughout. Back: No spinal tenderness. No costovertebral tenderness. Full range of motion. Skin: Warm, dry with normal turgor. Normal color with no rashes, no lesions, and no evidence of cellulitis. MS/ Extremity: Pulses equal, no cyanosis. Neurovascular intact. Full, normal range of motion. Neuro: Awake and alert, GCS 15, oriented to person, place, time, and situation. Cranial nerves II-XII grossly intact. Motor strength 5/5 in all extremities. Sensory grossly intact. Cerebellar exam normal. Normal gait. 21:14 Constitutional: The patient appears alert, awake. Vital Signs: 19:24 BP 130 / 94; Pulse 82; Resp 18; Temp 98.2; Pulse Ox 98% on R/A; Weight 99.79 kg; Height ph 5 ft. 2 in. (157.48 cm); 20:00 BP 130 / 89; Pulse 76; Resp 18; Pulse Ox 99% on R/A; ea 21:00 BP 129 / 84; Pulse 88; Resp 18; Temp 98; Pulse Ox 99% ; ea 22:00 BP 124 / 90; Pulse 78; Resp 18; Temp 98; Pulse Ox 98% ; ea 19:24 Body Mass Index 40.24 (99.79 kg, 157.48 cm) ph [place] Coma Score: 19:29 Eye Response: spontaneous(4). Verbal Response: oriented(5). Motor Response: obeys ea commands(6). Total: 15. MDM: 19:30 Patient medically screened. gs 21:14 Differential diagnosis: cerebral vascular accident, seizure, WITHDRAWAL ETOH OR DRUG. Data reviewed: vital signs, nurses notes, lab test result(s), radiologic studies. Counseling: I had a detailed discussion with the patient and/or guardian regarding: the historical points, exam findings, and any diagnostic results supporting the discharge/admit diagnosis, lab results, radiology results, the need for outpatient follow up, a neurologist. Response to treatment: the patient's symptoms have markedly improved after treatment, and as a result, I will discharge patient. 12/31 19:33 Order name: Urine Drug Screen 12/31 19:33 Order name: Urine Microscopic Only 12/31 19:33 Order name: CBC with Diff; Complete Time: 21:06 12/31 19:33 Order name: CMP; Complete Time: 21:06 12/31 19:33 Order name: CT Head Brain w/wo Con; Complete Time: 21:06 12/31 22:05 Order name: Urine Culture EDNM 12/31 19:33 Order name: Urine Test (obtain specimen); Complete Time: 21:42 12/31 19:33 Order name: Urine Dipstick-Ancillary (obtain specimen); Complete Time: 21:42 12/31 21:25 Order name: EKG - Nurse/Tech; Complete Time: 21:42 Administered Medications: 19:40 Drug: [place] 5 mg-325 mg 1 tabs {Note: RASS 0.} Route: PO; ea 20:23 Follow up: Response: No adverse reaction; Pain is decreased; RASS: Alert and Calm (0) ea 19:53 Drug: Zofran 4 mg Route: IVP; Site: right antecubital; ea 20:22 Follow up: Response: No adverse reaction ea 21:55 Drug: NS 0.9% 1000 ml Route: IV; Rate: 1 bolus; Site: right antecubital; ea 22:35 Follow up: Response: No adverse reaction; IV Intake: 1000ml ea Point of Care Testing: Blood Glucose: 19:24 Blood Glucose: 85 mg/dL; ph Ranges: Critical Glucose Levels:Adult <50 mg/dl or >400 mg/dl <40 mg/dl or >180 mg/dl Disposition: 12/31/18 22:02 Discharged to Home. Impression: Epilepsy and recurrent seizures. - Condition is Stable. - Discharge Instructions: Hypoglycemia, Seizure, Adult, Syncope, Managing Your Hypertension. - Work release form, Family Work Release, Medication Reconciliation Form, Thank You Letter, Antibiotic Education, Prescription Opioid Use form. - Follow up: [place]; When: 2 - 3 days; Reason: Re-evaluation by your physician. Signatures: Dispatcher [employer] Kenzie Paez RN RN ph Antunez, Elena, RN RN ea Starr, Gregory, MD MD gs Corrections: (The following items were deleted from the chart) 22:35 22:02 12/31/2018 22:02 Discharged to Home. Impression: Epilepsy and recurrent seizures. ea Condition is Stable. Discharge Instructions: Seizure, Adult, Hypoglycemia, Syncope, Managing Your Hypertension. Forms are Medication Reconciliation Form, Thank You Letter, Antibiotic Education, Prescription Opioid Use. Follow up: [place]; When: 2 - 3 days; Reason: Re-evaluation by your physician. gs
[2018-12-31 22:04] LABS: Barbiturates NEGATIVE (NEGATIVE); Benzodiazepines NEGATIVE (NEGATIVE); Cocaine NEGATIVE (NEGATIVE); METHAMPHETAM NEGATIVE (NEGATIVE); Methadone NEGATIVE (NEGATIVE); Opiates NEGATIVE (NEGATIVE); Phencyclidine NEGATIVE (NEGATIVE); THC Cannibis NEGATIVE (NEGATIVE)
[2018-12-31 23:41] VITALS: TEMP 98
[2018-12-31 23:43] VITALS: BP 124/90; O2SAT 98
--- NOTE | 2019-01-01 11:21 | EKG ---
Test Date: 2018-12-31 Test Time: 21:33:29 Slagger: DEDE MEASUREMENT RESULTS: Intervals: Rate: 83 SD: 154 QRSD: 78 QT: 378 QTc: 444 Hope: P: 64 SD: 154 QRS: 54 T: 27 INTERPRETIVE STATEMENTS: Normal sinus rhythm Normal ECG Compared to ECG 07/24/2018 16:00:51 No significant changes Electronically Signed On 01-01-19 11:19:16 CDT by Artis Sexton
== END 2018-12-31 22:35 | disposition home or self-care (01) ==
LOC: ER 19:15
DX: G40.802 Other epilepsy, not intractable, without status epilepticus (principal)
CPT/HCPCS: 36415; 80053; 80307; 81015; 82962; 85025; 87086; 87088; 93005; 96374; 99284; J2405; J7030

== ENCOUNTER 2020-09-15 10:01 | Emergency (ER) | payer SELFPAY ==
--- OUTSIDE RECORDS SUMMARY | 2020-09-15 10:05 | XMS REPORT | Continuity of Care Document ---
:1980 Author Organization [facility] t Address [address] [place] [address] Care Team Providers Name Role Phone DARWINE Attending Clinician Unavailable Payers Payer Name Policy Type Policy Number Effective Date Expiration Date S ource Problems This patient has no known problems. Allergies, Adverse Reactions, Alerts Allergy Allergy Status Severity Reaction(s) Onset Inactive Treating Comm ents Source Name Type Date Date Clinician No Known DA Active [facility] 00[facility]: e [facility] Medications This patient has no known medications. Procedures This patient has no known procedures. Encounters Start End Encounter Admission Attending Care Care Encounter Source Date/Time Date/Time Type Type Clinicians Facility Department ID 2019-11-15 2019-11-15 Emergency [facility] 064 [id number] [place] 00:00:00 00:00:[address] [place] [address] Results Test Description Test Time Test Comments Results Result Comments Source CBC W/AUTO DIFF 2019-07-23 15:11:00 Test Item Value Reference Range Interpretation Comme nts WHITE BLOOD CELL (test code = WBC) 8.1 K/mm3 4.5-12.5 N RED BLOOD CELL (test code = RBC) 4.19 mill/mm3 3.7-5.2 N HEMOGLOBIN (test code = HGB) 12.9 gram/dL 11.5-15.5 N HEMATOCRIT (test code = HCT) 39.9 % 36.0-46.0 N MEAN CELL VOLUME (test code = MCV) 95.2 fL 80-98 N MEAN CELL HGB (test code = MCH) 30.8 picogram 27.0-33.0 N MEAN CELL HGB CONCETRATION (test code = MCHC) 32.3 gram/dL 33.0-36. 0 L RED CELL DISTRIBUTION WIDTH (test code = RDW) 12.8 % 11.6-16. 2 N RED CELL DISTRIBUTION WIDTH SD (test code = RDW-SD) 44.1 fL 37 .0-51.0 N PLATELET COUNT (test code = PLT) 246 K/mm3 150-450 N MEAN PLATELET VOLUME (test code = MPV) 9.8 fL 6.7-11.0 N NEUTROPHIL % (test code = NT%) 49.2 % 39.0-69.0 N IMMATURE GRANULOCYTE % (test code = IG%) 0.2 % 0.0-5.0 N LYMPHOCYTE % (test code = LY%) 41.7 % 25.0-55.0 N MONOCYTE % (test code = MO%) 7.3 % 0.0-10.0 N EOSINOPHIL % (test code = EO%) 1.4 % 0.0-5.0 N BASOPHIL % (test code = BA%) 0.2 % 0.0-1.0 N NUCLEATED RBC % (test code = NRBC%) 0.0 % 0-0 N NEUTROPHIL # (test code = NT#) 3.99 K/mm3 1.8-7.7 N IMMATURE GRANULOCYTE # (test code = IG#) 0.02 x10 3/uL 0-0.03 N LYMPHOCYTE # (test code = LY#) 3.39 K/mm3 1.0-5.0 N MONOCYTE # (test code = MO#) 0.59 K/mm3 0-0.8 N EOSINOPHIL # (test code = EO#) 0.11 K/mm3 0.0-0.5 N BASOPHIL # (test code = BA#) 0.02 K/mm3 0.0-0.2 N NUCLEATED RBC # (test code = NRBC#) 0.00 K/mm3 0.0-0.1 N BASIC METABOLIC [id number] 15:08:00 Test Item Value Reference Range Interpretation Comments SODIUM (test code = 141 mmol/L 136-145 N NA) POTASSIUM (test code 4.3 mmol/L 3.5-5.1 N = K) CHLORIDE (test code = 110.0 mmol/L 98-107 H CL) CARBON DIOXIDE (test 29.0 mmol/L 21-32 N code = CO2) ANION GAP (test code 6.3 10-20 L = GAP) GLUCOSE (test code = 74 mg/dL 74-106 N GLU) BLOOD UREA NITROGEN 17 mg/dL 7-18 N (test code = BUN) GLOMERULAR FILTRATION > 60 mL/min >=60 Estima casie GFR by RATE (test code = using Cory fied MDRD GFR) formula.Chronic kidney disease is defined as [facility] kidney damageor GFR <60 mL/min/1.73 m2 for >3 months. CREATININE (test code 0.70 mg/dL 0.55-1.02 N Note change in = CREAT) reference range due to change in reagent. BUN/CREATININE RATIO 24.3 10-20 H (test code = BUN/CREA) CALCIUM (test code = 8.0 mg/dL 8.5-10.1 L CA) [id number] 15:08:00 Test Item Value Reference Range Interpretation Comments TROPONIN-I (test code = TROPI) <0.015 ng/mL 0-0.045 N BASIC METABOLIC [id number] 14:57:00 Test Item Value Reference Range Interpretation Comments SODIUM (test code = NA) 141 mmol/L 136-145 N POTASSIUM (test code = K) 4.3 mmol/L 3.5-5.1 N CHLORIDE (test code = CL) 110.0 mmol/L 98-107 H CARBON DIOXIDE (test code = CO2) mmol/L 21-32 ANION GAP (test code = GAP) 10-20 GLUCOSE (test code = GLU) mg/dL 74-106 BLOOD UREA NITROGEN (test code = mg/dL 7-18 BUN) GLOMERULAR FILTRATION RATE (test mL/min >=60 code = GFR) CREATININE (test code = CREAT) mg/dL 0.55-1.02 BUN/CREATININE RATIO (test code 10-20 = BUN/CREA) CALCIUM (test code = CA) mg/dL 8.5-10.1 [id number] 14:57:00 Test Item Value Reference Range Interpretation Comments TROPONIN-I (test code = TROPI) ng/mL 0-0.045 CBC W/AUTO [id number] 14:57:00 Test Item Value Reference Range Interpretation Comments WHITE BLOOD CELL (test code = K/mm3 4.5-12.5 WBC) RED BLOOD CELL (test code = RBC) mill/mm3 3.7-5.2 HEMOGLOBIN (test code = HGB) 12.9 gram/dL 11.5-15.5 N HEMATOCRIT (test code = HCT) 39.9 % 36.0-46.0 N MEAN CELL VOLUME (test code = fL 80-98 MCV) MEAN CELL HGB (test code = MCH) picogram 27.0-33.0 MEAN CELL HGB CONCETRATION (test gram/dL 33.0-36.0 code = MCHC) RED CELL DISTRIBUTION WIDTH % 11.6-16.2 (test code = RDW) RED CELL DISTRIBUTION WIDTH SD fL 37.0-51.0 (test code = RDW-SD) PLATELET COUNT (test code = PLT) K/mm3 150-450 MEAN PLATELET VOLUME (test code fL 6.7-11.0 = MPV) NEUTROPHIL % (test code = NT%) % 39.0-69.0 IMMATURE GRANULOCYTE % (test % 0.0-5.0 code = IG%) LYMPHOCYTE % (test code = LY%) % 25.0-55.0 MONOCYTE % (test code = MO%) % 0.0-10.0 EOSINOPHIL % (test code = EO%) % 0.0-5.0 BASOPHIL % (test code = BA%) % 0.0-1.0 NEUTROPHIL # (test code = NT#) K/mm3 1.8-7.7 LYMPHOCYTE # (test code = LY#) K/mm3 1.0-5.0 MONOCYTE # (test code = MO#) K/mm3 0-0.8 EOSINOPHIL # (test code = EO#) K/mm3 0.0-0.5 BASOPHIL # (test code = BA#) K/mm3 0.0-0.2 - XR CHEST 1 [id number] 13:16:00 FAX: Scott Layne MD [phone] [place]: B St: REG Name: KIMBER TORO [facility] : 1980 Age/S: 38/F [address] Unit#: [id number] Loc: Samantha[place]IANNA Stringer [address] Phys: Scott Layne MD Acct: [id number] Dis Date: Status: REG ER PHONE #: [phone] Exam Date: 07/23/2019 1314 FAX #: [phone] Reason: SOB EXAMS: CPT CODE: [id number] XR CHEST 1 V [id number] REASON FOR EXAM: SOB EXAM ORDER DATE: 07/23/2019 12:56 PM Ordering: Scott Layne MD Attending:Scott Layne MD Loc ation:KENY PROCEDURE: - XR CHEST 1 V COMPARISON: FINDINGS: Portable AP frontal view of the chest obtained at 1:14 PM shows clear lungs without evidence of consolidation. There is no evidence of effusion. The heart size is within normal limits. Pulmonary vasculatures are unremarkable. IMPRESSION: No active disease. at 1316 Reported and signed by: Maurice Zambrano M.D. CC: Scott Layne MD Technologist: AYLA HOPE) Trnscrd Date/Time/By: 07/23/2019 ([id number]) : By: Monika Orig Print D/T: S: 07/23/2019 ([id number]) PAGE 1 Signed Report
[2020-09-15 12:08] LABS: SARS-COV-2 RT PCR NEGATIVE (NEGATIVE)
--- NOTE | 2020-09-15 12:13 | ER ---
Nurse's Notes [facility] Name: Etelvina Salcedo Age: 39 yrs Sex: Female : 1980 Arrival Date: 09/15/2020 Time: 10:02 Bed 28 Private MD: Diagnosis: Acute upper respiratory infection, unspecified Presentation: 09/15 10:26 Chief complaint: Patient states: my body has been hurting since Monday, i have cough tw2 congestion fever. Coronavirus screen: cough unrelated to allergies, fever, muscle pain, Client presents with at least one sign or symptom that may indicate coronavirus-19. Standard/surgical mask placed on the client. Provider contacted for isolation considerations. Ebola Screen: Patient denies travel to an Ebola-affected area in the 21 days before illness onset. Initial Sepsis Screen: Does the patient meet any 2 criteria? No. Patient's initial sepsis screen is negative. Does the patient have a suspected source of infection? No. Patient's initial sepsis screen is negative. Risk Assessment: Do you want to hurt yourself or someone else? Patient reports no desire to harm self or others. Onset of symptoms was September 15, 2020. 10:26 Method Of Arrival: Ambulatory tw2 10:26 Acuity: EARLINE 4 tw2 Triage Assessment: 10:28 Headache History: The patient has had previous headaches and this one is similar to tw2 previous episodes. General: Appears in no apparent distress. obese, well groomed, Behavior is appropriate for age. 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 - Social history:: Smoking status: . Screenin:50 Abuse screen: Denies threats or abuse. Denies injuries from another. Nutritional ca1 screening: No deficits noted. Tuberculosis screening: No symptoms or risk factors identified. Fall Risk None identified. Assessment: 10:50 General: Appears in no apparent distress. comfortable, Behavior is calm, cooperative, ca1 appropriate for age, Reports fever for > 3 days, feeling ill for > 3 days, fatigue for >3 days. Pain: Complains of pain in scalp. Neuro: Level of Consciousness is awake, alert, obeys commands, Oriented to person, place, time, situation. Neuro: Reports headache. Cardiovascular: Heart tones S1 S2 present Capillary refill < 3 seconds Patient's skin is warm and dry. Respiratory: Reports cough that is Airway is patent Respiratory effort is even, unlabored, Respiratory pattern is regular, symmetrical, Breath sounds are clear bilaterally. GI: Abdomen is round non-distended, Bowel sounds present X 4 quads. Abd is soft and non tender X 4 quads. : No signs and/or symptoms were reported regarding the genitourinary system. EENT: Throat is pink. Derm: Skin is intact, is healthy with good turgor, Skin is pink, warm \T\ dry. Musculoskeletal: Circulation, motion, and sensation intact. Capillary refill < 3 seconds. 11:41 Reassessment: Patient appears in no apparent distress at this time. Patient and/or ca1 family updated on plan of care and expected duration. Pain level reassessed. Patient is alert, oriented x 3, equal unlabored respirations, skin warm/dry/pink. Vital Signs: 10:26 Pulse 97; Resp 18; Temp 97.4(TE); Pulse Ox 99% on R/A; Weight 99.79 kg (R); Height 5 tw2 ft. 2 in. (157.48 cm); 10:30 BP 119 / 83; tw2 11:41 BP 115 / 80; Pulse 83; Resp 16 S; Pulse Ox 99% on R/A; ca1 10:26 Body Mass Index 40.24 (99.79 kg, 157.48 cm) tw2 ED Course: 10:02 Patient arrived in ED. am2 10:19 Gina Alvarez FNP-C is PHCP. kb 10:19 Aamir Harrington MD is Attending Physician. kb 10:28 Triage completed. tw2 10:28 Arm band placed on. tw2 10:45 Mirian Leonard, MAME is Primary Nurse. ca1 10:50 Patient has correct armband on for positive identification. Bed in low position. Call ca1 light in reach. Side rails up X 1. Pulse ox on. NIBP on. Warm blanket given. 12:31 No provider procedures requiring assistance completed. Patient did not have IV access zb during this emergency room visit. Administered Medications: No medications were administered Outcome: 12:12 Discharge ordered by . neisha 12:32 Discharged to home ambulatory. zb 12:32 Condition: stable 12:32 Discharge instructions given to patient, family, Instructed on discharge instructions, follow up and referral plans. medication usage, Demonstrated understanding of instructions, follow-up care. 12:33 Patient left the ED. zb Signatures: Gina Alvarez, PAROLE SUPERVISOR-C PAROLE SUPERVISOR-CkSallie Oconnor, RN RN tw2 Christine Vargas am2 Mirian Leonard RN RN ca1 May Mc RN RN zb
--- NOTE | 2020-09-15 12:13 | EDPHYS ---
Physician Documentation [facility] Name: Etelvina Salcedo Age: 39 yrs Sex: Female : 1980 Arrival Date: 09/15/2020 Time: 10:02 Bed 28 Private MD: ED Physician Aamir Harrington HPI: 09/15 10:30 This 39 yrs old Female presents to ER via Ambulatory with complaints of Cough, kb Runny Nose, Headache, Sore Throat, General Weakness. 10:30 The patient or guardian reports cough, flu symptoms, low-grade fever, myalgias. Onset: kb The symptoms/episode began/occurred 4 day(s) ago. Severity of symptoms: At their worst the symptoms were moderate, in the emergency department the symptoms are unchanged. Modifying factors: The symptoms are alleviated by nothing, the symptoms are aggravated by nothing. Associated signs and symptoms: Pertinent positives: fever, sore throat. The patient has not experienced similar symptoms in the past. The patient has not recently seen a physician. Pt reports sore throat, fever, chills, bodyaches, cough since Monday. TMAX 102. 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 - Social history:: Smoking status: . ROS: 10:30 Cardiovascular: Negative for chest pain, palpitations, and edema. kb 10:30 Constitutional: Positive for body aches, chills, fatigue, fever, malaise. 10:30 ENT: Positive for sore throat. 10:30 Respiratory: Positive for cough, Negative for dyspnea on exertion, hemoptysis, orthopnea, pleurisy, shortness of breath, sputum production, wheezing. 10:30 All other systems are negative. Exam: 10:30 Constitutional: This is a well developed, well nourished patient who is awake, alert, kb and in no acute distress. Head/Face: Normocephalic, atraumatic. ENT: Moist Mucous membranes Cardiovascular: Regular rate and rhythm with a normal S1 and S2. No gallops, murmurs, or rubs. No pulse deficits. Respiratory: Respirations even and unlabored. No increased work of breathing, no retractions or nasal flaring. Abdomen/GI: Soft, non-tender. No distention Skin: Warm, dry with normal turgor. Normal color. MS/ Extremity: Pulses equal, no cyanosis. Neurovascular intact. Full, normal range of motion. Neuro: Awake and alert, GCS 15, oriented to person, place, time, and situation. Moves all extremities. Normal gait. 10:30 ENT: Posterior pharynx: is normal. Vital Signs: 10:26 Pulse 97; Resp 18; Temp 97.4(TE); Pulse Ox 99% on R/A; Weight 99.79 kg (R); Height 5 tw2 ft. 2 in. (157.48 cm); 10:30 BP 119 / 83; tw2 11:41 BP 115 / 80; Pulse 83; Resp 16 S; Pulse Ox 99% on R/A; ca1 10:26 Body Mass Index 40.24 (99.79 kg, 157.48 cm) tw2 MDM: 10:29 Patient medically screened. kb 10:32 Data reviewed: vital signs, nurses notes. Data interpreted: Pulse oximetry: on room air kb is 99 %. Interpretation: normal. 12:10 Counseling: I had a detailed discussion with the patient and/or guardian regarding: the kb historical points, exam findings, and any diagnostic results supporting the discharge/admit diagnosis, lab results, the need for outpatient follow up, a family practitioner, to return to the emergency department if symptoms worsen or persist or if there are any questions or concerns that arise at home. 09/15 10:20 Order name: Strep; Complete Time: 11:52 kb 09/15 11:40 Order name: Throat Culture EDMS 09/15 12:08 Order name: COVID-19/FLU A+B; Complete Time: 12:09 EDMS Administered Medications: No medications were administered Disposition: 17:11 Co-signature as Attending Physician, Aamir Harrington MD. rn Disposition: 09/15/20 12:12 Discharged to Home. Impression: Acute upper respiratory infection, unspecified. - Condition is Stable. - Discharge Instructions: Viral Respiratory Infection, [id number]. - Medication Reconciliation Form, Thank You Letter, Antibiotic Education, Prescription Opioid Use, Work release form form. - Follow up: Emergency Department; When: As needed; Reason: Worsening of condition. Follow up: Private Physician; When: 2 - 3 days; Reason: Recheck today's complaints, Continuance of care, Re-evaluation by your physician. Signatures: Dispatcher [employer] EDKS Gina Alvarez, ASSAYER HELPER-C ASSAYER HELPER-Ckb Aamir Harrington MD MD rn Wise, Tara, RN RN tw2 May Mc RN RN zhoney Corrections: (The following items were deleted from the chart) 10:32 10:30 Constitutional: This is a well developed, well nourished patient who is awake, kb alert, and in no acute distress. Head/Face: Normocephalic, atraumatic. Cardiovascular: Regular rate and rhythm with a normal S1 and S2. No gallops, murmurs, or rubs. No pulse deficits. Respiratory: Respirations even and unlabored. No increased work of breathing, no retractions or nasal flaring. Abdomen/GI: Soft, non-tender. No distention Skin: Warm, dry with normal turgor. Normal color. MS/ Extremity: Pulses equal, no cyanosis. Neurovascular intact. Full, normal range of motion. Neuro: Awake and alert, GCS 15, oriented to person, place, time, and situation. Moves all extremities. Normal gait. kb 11:14 10:21 Influenza Screen (A \T\ B)+BA.LAB.BRZ ordered. EDMS EDMS 11:14 10:21 CORONAVIRUS+MR.LAB.BRZ ordered. EDKS EDMS 12:33 12:12 09/15/2020 12:12 Discharged to Home. Impression: Acute upper respiratory zb infection, unspecified. Condition is Stable. Forms are Work release form, Medication Reconciliation Form, Thank You Letter, Antibiotic Education, Prescription Opioid Use. Follow up: Emergency Department; When: As needed; Reason: Worsening of condition. Follow up: Private Physician; When: 2 - 3 days; Reason: Recheck today's complaints, Continuance of care, Re-evaluation by your physician. kb
[2020-09-15 12:37] VITALS: TEMP 97.4; O2SAT 99
[2020-09-15 12:39] VITALS: BP 115/80
== END 2020-09-15 12:33 | disposition home or self-care (01) ==
LOC: ER 10:01
DX: J06.9 Acute upper respiratory infection, unspecified (principal); Z20.822 Contact with and (suspected) exposure to COVID-19; E03.9 Hypothyroidism, unspecified; E87.6 Hypokalemia
CPT/HCPCS: 0240U; 87070; 87081; 99283

== ENCOUNTER 2020-10-28 16:36 | Emergency (ER) | payer OTHER, SELFPAY ==
--- OUTSIDE RECORDS SUMMARY | 2020-10-28 16:40 | XMS REPORT | Continuity of Care Document ---
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 8-27 Meth kody encephalop encephalop 00:00: st athy athy 00 Allergies, Adverse Reactions, Alerts Allergy Allergy Status Severity Reaction(s) Onset Inactive Treating Comm ents Source Name Type Date Date Clinician No Known DA Active [facility] All[facility] 2[facility]11 [facility] Family History Family Member Diagnosis Comments Start Date Stop Date Source Natural daughter Seizures [place] Taoism Social History Social Habit Start Date Stop Date Quantity Comments Source History [facility] Meth odist Alcohol Binge History [facility] Meth odist Alcohol Std Drinks Tobacco use and 2019-11-15 2019-11-15 Never used [place] Sundar ethodist exposure 00:00:00 00:00:00 Alcohol intake 2019-11-15 2019-11-15 Lifetime [place] Me thodist 00:00:00 00:00:00 non-drinker (finding) History [facility] 2019-11-15 2019-11-15 1 [place] Meth odist Alcohol Frequency 00:00:00 00:00:00 Sex Ass[birth year] At [birth year] [place] M ethodist 00:00:00 00:00:00 Smoking Status Start Date Stop Date Source Never smoker Josh jacobson Medications Ordered Filled Start Stop Current Ordering Indication Dosage Frequency Signature Comments Components Source Medication Medication Date Date Medication? Clinician (SIG) Name Name ondansetron Yes 4mg Q8H Take 1 Renae ton (ZOFRAN) 4 9-02 tablet (4 Meth kody MG tablet 00:00: mg total) st 00 by mouth every 8 (eight) hours as needed for nausea or vomiting. Vital Signs Vital Name Observation Time Observation Value Comments Source Systolic blood 2019-11-15 20:08:00 107 mm[Hg] Narinder n Taoism pressure Diastolic blood 2019-11-15 20:08:00 56 mm[Hg] Reshma on Taoism pressure Heart rate 2019-11-15 20:08:00 60 /min Josh [place] Respiratory rate 2019-11-15 20:08:00 18 /min Renae Moreno Oxygen saturation in 2019-11-15 20:08:00 99 /min Josh Moreno Arterial blood by Pulse oximetry Body temperature 2019-11-15 14:13:41 37.22 [place] Renae Moreno Body height 2019-11-15 14:08:00 157.5 cm Josh Moreno Procedures Procedure Date / Time Performing Clinician Source Performed LACTIC ACID LEVEL 2019-11-15 19:13:[address] ABDOMEN PELVIS W 2019-11-15 17:56:03 Natalia Valencia CONTRAST URINE CULTURE 2019-11-15 17:24:00 Natalia Valencia Ut [facility] URINALYSIS SCREEN AND 2019-11-15 16:55:00 Natalia Valencia MICROSCOPY, WITH REFLEX TO CULTURE HCG QUALITATIVE, URINE 2019-11-15 16:50:00 Natalia Valencia SCREEN US PELVIC TRANSABDOMINAL 2019-11-15 16:30:00 Natalia Valencia US PELVIC TRANSVAGINAL 2019-11-15 16:30:00 Natalia Valencia HC COMPLETE BLD COUNT 2019-11-15 15:20:00 Natalia Valencia W/AUTO DIFF COMPREHENSIVE METABOLIC 2019-11-15 15:20:00 [facility] PAN[facility] LACTIC ACID LEVEL 2019-11-15 15:20:00 Natalia Valencia Taoism ESTIMATED GFR 2019-11-15 15:20:00 Natalia Valencia [facility] Plan of Care Planned Activity Planned Date Details Comments Source Future Scheduled 2020-12-06 INFLUENZA VACCINE [place] [facility] Test 00:00:00 [code = INFLUENZA VACCINE] Future Scheduled 2000-11-11 Screening for Josh Ut [facility]odist Test 00:00:00 malignant neoplasm of cervix (procedure) [code = 518404470] Future Scheduled 1997-11-11 Hepatitis C [place] Met hodist Test 00:00:00 screening (procedure) [code = 329459213] Future Scheduled 1991 COVID-19 VACCINE (1) Dorian espinal Taoism Test 00:00:00 [code = COVID-19 VACCINE (1)] Encounters Start End Encounter Admission Attending Care Care Encounter Source Date/Time Date/Time Type Type Clinicians Facility Department ID 2019-11-15 2019-11-15 Emergency [facility] [id number] [place] 00:00:00 00:00:00 NATALIA Rdz Method i st Results Test Description Test Test Results Result Source Time Comments Comments CT Abdomen Pelvis 2019-[facility] Interface, Radiology [place] W Contrast 10 Results Incoming - Method ist 18:08:42 11/15/2019 6:11 PM CDT EXAMINATION: CT ABDOMEN PELVIS W CONTRASTCLINICAL HISTORY: rlq painTECHNIQUE: Multiple axial images of the abdomen and pelvis were obtained following intravenous administration of iodinated contrast. Sagittal and coronal computerized reformatted images were also obtained.. All CT images were acquired using radiation dose lowering technique with automated exposure control and / or iterative reconstruction.COMPARISON : CT abdomen 01/07/2019IMPRESSION:ABDOME N:1. Minimal bibasilar dependent atelectasis. Lung bases otherwise clear.2.Colonic diverticulosis most pronounced distally. Sutural material at the cecum and surgical clips at the right lower quadrant consistent with appendectomy. Status post gastric bypass surgery. Mild dilation at the jejunojejunal anastomosis is stable to less pronounced than prior, and likely postop configuration. No upstream bowel dilation. No evidence of obstruction or acute inflammation, otherwise grossly unremarkable without enteric contrast.3.The liver is slightly heterogeneous in density and somewhat lobulated in surface contour, which may indicate chronic liver disease. No focal lesion identified however. Cholecystectomy. Bile ducts, pancreas, spleen, adrenals, abdominal aorta demonstrate nothing unusual.4.Mild multifocal renal cortical scarring. Subcentimeter right renal hypodensity is likely a cyst. No hydronephrosis.PELVIS:1. Pronounced atrophy of the right rectus abdominis is stable. No free fluid or lymphadenopathy identified in the abdomen or pelvis.2.IUD appears satisfactory positioned. Uterus and adnexa otherwise grossly unremarkable. The urinary bladder slightly distended otherwise unremarkable.3.Visualized bones show no suspicious lesion.SUMMARY:No cause for acute right lower quadrant pain identified.Incidental findings, see [id number] Pelvic Interface, Radiology [facility] Transvaginal 10 Results Incoming - [facility] odist 16:39:21 11/15/2019 4:42 PM CDT EXAMINATION: US PELVIC TRANSVAGINALCLINICAL HISTORY: Right lower quadrant painTECHNIQUE: Sonographic imaging over the pelvis was performed using both transabdominal and transvaginal techniques. COMPARISON: None.IMPRESSION: UTERUS :The uterus measures 8.7x 5.5 X 4.8 cm. There is an IUD. The cervical nabothian cyst is present.ENDOMETRIAL STRIPE THICKNESS: 0.3 mm.RIGHT OVARY: 2.2 x 1.6 X 1.2 cm.LEFT OVARY:1.9 x 1.4 X 1.5 cm.No ovarian mass or lesion is seen. Normal flow to the ovaries is identified.[facility]-[id number] Pelvic Interface, Radiology [facility] Transabdominal 10 Results Incoming - Ut thodist 16:38:35 11/15/2019 4:41 PM CDT EXAMINATION: US PELVIC TRANSABDOMINALCLINICAL HISTORY: Right lower quadrant painTECHNIQUE: Sonographic imaging over the pelvis was performed using both transabdominal and transvaginal techniques. COMPARISON: None.IMPRESSION: UTERUS :The uterus measures 8.7x 5.5 X 4.8 cm. There is an IUD. The cervical nabothian cyst is present.ENDOMETRIAL STRIPE THICKNESS: 0.3 mm.RIGHT OVARY: 2.2 x 1.6 X 1.2 cm.LEFT OVARY:1.9 x 1.4 X 1.5 cm.No ovarian mass or lesion is seen. Normal flow to the ovaries is identified.[facility]-[id number] [facility]-[id number] CBC W/AUTO DIFF 2019-07-23 15:11:00 Test Item [...] NRBC#) 0.00 K/mm3 0.0-0.1 N BASIC METABOLIC [id number] 15:08:00 Test Item Value Reference Range Interpretation [...] GFR) formula.Chronic kidney disease is defined as eith er kidney damageor GFR <60 mL/min/1.73 m2 for >3 months. CREATININE (test code 0.70 mg/dL 0.55-1.02 N Note change in = CREAT) reference range due to change in reagent. BUN/CREATININE RATIO 24.3 10-20 H (test code = BUN/CREA) CALCIUM (test code = 8.0 mg/dL 8.5-10.1 L CA) [id number] 15:08:00 Test Item Value Reference Range Interpretation Comments TROPONIN-I (test code = TROPI) <0.015 ng/mL 0-0.045 N BASIC METABOLIC [id number] 14:57:00 Test Item Value Reference Range Interpretation [...] CALCIUM (test code = CA) mg/dL 8.5-10.1 [id number] 14:57:00 Test Item Value Reference Range Interpretation Comments TROPONIN-I (test code = TROPI) ng/mL 0-0.045 CBC W/AUTO [id number] 14:57:00 Test Item Value Reference Range Interpretation [...] BA#) K/mm3 0.0-0.2 - XR CHEST 1 [id number] 13:16:00 FAX: Scott Layne MD [phone] [place]: St: REG Name: KIMBER TORO [facility] : 1980 Age/S: 38/F [address] [facility] Unit#: [id number] Loc: [place] [address] Phys: Scott Layne MD Acct: [id number] Dis Date: Status: REG ER PHONE #: [phone] Exam Date: 07/23/2019 1314 FAX #: [phone] Reason: SOB EXAMS: CPT CODE: [id number] XR CHEST 1 V [id number] REASON FOR EXAM: SOB EXAM ORDER DATE: 07/23/2019 12:56 PM Ordering: Scott Layne MD Attending:Scott Layne MD Loc ation:[facility] PROCEDURE: - XR CHEST 1 V COMPARISON: FINDINGS: Portable AP frontal view of the chest obtained at 1:14 PM shows clear lungs without evidence of consolidation. There is no evidence of effusion. The heart size is within normal limits. Pulmonary vasculatures are unremarkable. IMPRESSION: No active disease. at 1316 Reported and signed by: Maurice Zambrano M.D. CC: Scott Layne MD Technologist: AYLA HOPE) Trnkenneth Date/Time/By: 07/23/2019 ([id number]) : By: Monika Orig Print D/T: S: 07/23/2019 ([id number]) PAGE 1 Signed Report
--- NOTE | 2020-10-28 17:34 | ER ---
Nurse's Notes [facility] Name: Etelvina Salcedo Age: 39 yrs Sex: Female : 1980 Arrival Date: 10/28/2020 Time: 16:41 Bed 28 Private MD: Diagnosis: Contact with contaminated hypodermic needle Presentation: 10/28 17:08 Chief complaint: Patient states: i was at a patient house and the pts daughter checked tw2 is blood sugar and left the needle on the bed. it was about 3:30pm today. i did wash it right away. Chief complaint: Patient states: got stuck on my RIGHT thumb. Coronavirus screen: At this time, the client does not indicate any symptoms associated with coronavirus-19. Ebola Screen: Patient denies travel to an Ebola-affected area in the 21 days before illness onset. Initial Sepsis Screen: Does the patient meet any 2 criteria? No. Patient's initial sepsis screen is negative. Does the patient have a suspected source of infection? No. Patient's initial sepsis screen is negative. Risk Assessment: Do you want to hurt yourself or someone else? Patient reports no desire to harm self or others. Onset of symptoms was October 28, 2020. 17:08 Method Of Arrival: Ambulatory tw2 17:08 Acuity: EARLINE 3 tw2 Triage Assessment: 17:11 General: Appears in no apparent distress. comfortable, obese, well groomed, Behavior is tw2 calm, cooperative, appropriate for age. Pain: Denies pain. 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 - Social history:: Smoking status: Patient denies any tobacco usage or history of. - Family history:: not pertinent. - Hospitalizations: : No recent hospitalization is reported. Screenin:15 Abuse screen: Denies threats or abuse. Denies injuries from another. Nutritional ld1 screening: No deficits noted. Tuberculosis screening: No symptoms or risk factors identified. Fall Risk None identified. Assessment: 17:15 General: Appears in no apparent distress. comfortable, Behavior is calm, cooperative, ld1 appropriate for age. Pain: Denies pain. Neuro: Level of Consciousness is awake, alert, obeys commands, Oriented to person, place, time, situation, Appropriate for age. Cardiovascular: Capillary refill < 3 seconds Patient's skin is warm and dry. Respiratory: Airway is patent Respiratory effort is even, unlabored, Respiratory pattern is regular, symmetrical. GI: Abdomen is flat, non-distended. : No signs and/or symptoms were reported regarding the genitourinary system. EENT: No signs and/or symptoms were reported regarding the EENT system. Derm: Reports Pt was working and her patient left a needle in the bed that she was using for insulin, resulting in a needle stick to right thumb. Musculoskeletal: No signs and/or symptoms reported regarding the musculoskeletal system. 17:55 Reassessment: Patient appears in no apparent distress at this time. No changes from ld1 previously documented assessment. Vital Signs: 17:08 BP 94 / 73; Pulse 79; Resp 17; Temp 98.2(TE); Pulse Ox 98% on R/A; tw2 17:15 BP 131 / 67; Pulse 78; Resp 18; Pulse Ox 97% on R/A; Pain 0/10; ld1 ED Course: 16:41 Patient arrived in ED. wm 17:11 Triage completed. tw2 17:11 Arm band placed on. tw2 17:14 Elvira Richardson, RN is Primary Nurse. ld1 17:15 Patient has correct armband on for positive identification. Bed in low position. Call ld1 light in reach. Side rails up X 1. Pulse ox on. NIBP on. 17:15 No provider procedures requiring assistance completed. ld1 17:19 Aamir Harrington MD is Attending Physician. rn 17:55 Patient did not have IV access during this emergency room visit. ld1 Administered Medications: No medications were administered Outcome: 17:34 Discharge ordered by . rn 17:55 Discharged to home ambulatory. ld1 17:55 Condition: stable 17:55 Discharge instructions given to patient, Instructed on discharge instructions, follow up and referral plans. Demonstrated understanding of instructions, follow-up care. 17:55 Patient left the ED. ld1 Signatures: Aamir Harrington MD MD rn Sallie Gallardo RN RN tw2 Elvira Richardson RN RN ld1 Priscila Solano
--- NOTE | 2020-10-28 17:34 | EDPHYS ---
Physician Documentation [facility] Name: Etelvina Salcedo Age: 39 yrs Sex: Female : 1980 Arrival Date: 10/28/2020 Time: 16:41 Bed 28 Private MD: ED Physician Aamir Harrington HPI: 10/28 17:27 This 39 yrs old Female presents to ER via Ambulatory with complaints of Needle rn Stick Exposure. 17:27 Reports insulin needle stick, accidental, at patient's house today, used needle, was in rn bed and no gloves. Pt is not known to have HIV/hepatitis. . Onset: The symptoms/episode began/occurred today. Severity of symptoms: At their worst the symptoms were mild in the emergency department the symptoms have improved. The patient has not experienced similar symptoms in the past. The patient has not recently seen a physician. Reports washed thumb well, did draw blood from thumb, states needle stuck in thumb. Called her company and directed to ER, they do not have post-exposure protocol.. 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 - Social history:: Smoking status: Patient denies any tobacco usage or history of. - Family history:: not pertinent. - Hospitalizations: : No recent hospitalization is reported. ROS: 17:27 Constitutional: Negative for fever, chills, and weight loss, MS/Extremity: + needle rn stick injury to right thumb Exam: 17:27 Constitutional: This is a well developed, well nourished patient who is awake, alert, rn and in no acute distress. Seems a little anxious. MS/ Extremity: Pulses equal, no cyanosis. Neurovascular intact. Full, normal range of motion. No open wounds or bleeding noted from right thumb. Vital Signs: 17:08 BP 94 / 73; Pulse 79; Resp 17; Temp 98.2(TE); Pulse Ox 98% on R/A; tw2 17:15 BP 131 / 67; Pulse 78; Resp 18; Pulse Ox 97% on R/A; Pain 0/10; ld1 MDM: 17:19 Patient medically screened. rn 17:27 Differential Diagnosis needle stick exposure. Data reviewed: vital signs, nurses notes, rn and as a result, I will discharge patient. Counseling: I had a detailed discussion with the patient and/or guardian regarding: the historical points, exam findings, and any diagnostic results supporting the discharge/admit diagnosis, the need for outpatient follow up, to return to the emergency department if symptoms worsen or persist or if there are any questions or concerns that arise at home. Medical screen evaluation completed. EMTALA emergency medical condition absent. Special discussion: I discussed with the patient/guardian in detail that at this point there is no indication for admission to the hospital. It is understood, however, that if the symptoms persist or worsen the patient needs to return immediately for re-evaluation. ED course: Post-exposure HIV and hepatitis panel sent, patient not known to have HIV or Hepatitis, will send labs and will not give post-exposure prophylaxis at this time given low risk. Pt understands and agrees. . 10/28 17:26 Order name: [facility]. Lab Test rn 10/28 17:40 Order name: [facility]. Lab Test ss Administered Medications: No medications were administered Disposition: 10/28/20 17:34 Discharged to Home. Impression: Contact with contaminated hypodermic needle. - Condition is Stable. - Discharge Instructions: Needlestick Injury. - Medication Reconciliation Form, Thank You Letter, Antibiotic Education, Prescription Opioid Use form. - Follow up: Private Physician; When: As needed; Reason: Recheck today's complaints, Re-evaluation by your physician. - Problem is new. - Symptoms are unchanged. Signatures: Dispatcher [employer] EDMS Aamir Harrington MD MD rn Wise, Tara, RN RN tw2 Elvira Richardson RN RN ld1 Corrections: (The following items were deleted from the chart) 17:55 17:34 10/28/2020 17:34 Discharged to Home. Impression: Contact with contaminated ld1 hypodermic needle. Condition is Stable. Forms are Medication Reconciliation Form, Thank You Letter, Antibiotic Education, Prescription Opioid Use. Follow up: Private Physician; When: As needed; Reason: Recheck today's complaints, Re-evaluation by your physician. Problem is new. Symptoms are unchanged. rn
[2020-10-28 18:21] VITALS: BP 131/67; O2SAT 97
[2020-10-28 18:26] VITALS: TEMP 98.2
== END 2020-10-28 17:55 | disposition home or self-care (01) ==
LOC: ER 16:36
DX: S61.031A Puncture wound without foreign body of right thumb without damage to nail, initial encounter (principal); W46.1XXA Contact with contaminated hypodermic needle, initial encounter
CPT/HCPCS: 36415; 86705; 87389; 87340; 86803; G0433; 99283

== ENCOUNTER 2020-12-29 12:49 | Emergency (ER) | payer OTHER, SELFPAY ==
--- OUTSIDE RECORDS SUMMARY | 2020-12-29 12:52 | XMS REPORT | Continuity of Care Document ---
:[address] [facility] t Address [address] [place] [address] Care Team Providers Name Role Phone Asked, Pcp Primary Care Physician Unavailable SARAY Attending Clinician Unavailable Payers Payer Name Policy Type Policy Number Effective Date Expiration Date S ource Problems Condition Condition Condition Status Onset Resolution Last Treating Co mments Source Name Details Category Date Date Treatment Clinician Date Toxic Toxic Disease Active Methodi metabolic metabolic 8-[facility] encephalop 00:00: [facility] sp[facility] athy athy 00 l Allergies, Adverse Reactions, Alerts Allergy Allergy Status Severity Reaction(s) Onset Inactive Treating Comm ents Source Name Type Date Date Clinician No Known DA Active [facility] Family History Family Member Diagnosis Comments Start Date Stop Date Source Natural daughter Seizures [facility] Social History Social Habit Start Date Stop Date Quantity Comments Source History SDCT [facility] Std Drinks Hospit al History [facility] Tobacco use and 2019-11-15 2019-11-15 Never used [facility] exposure 00:00:00 00:00:00 Hospital Alcohol intake 2019-11-15 2019-11-15 Lifetime [facility] 00:00:00 00:00:00 non-drinker Hospital (finding) History SDCT 2019-11-15 2019-11-15 1 [facility] Alcohol Frequency 00:00:00 00:00:00 Hospita l Sex Assigned At [birth year] [facility] 00:[facility]:00 [facility] Smoking Status Start Date Stop Date Source Never smoker [facility] Medications Ordered Filled Start Stop Current Ordering Indication Dosage Frequency Signature Comments Components Source Medication Medication Date Date Medication? Clinician (SIG) Name Name ondansetron 2019-0 Yes 4mg Q8H Take 1 Meth kody (ZOFRAN) 4 9-02 tablet (4 st MG tablet 00:00: mg total) Hos shannon 00 by mouth l every 8 (eight) hours as needed for nausea or vomiting. Procedures This patient has no known procedures. Plan of Care Planned Activity Planned Date Details Comments Source Future Scheduled Test COVID-19 VACCINE (1) [facility] [code = COVID-19 VACCINE (1)] Future Scheduled Test Hepatitis C screening [facility] (procedure) [code = 336731716] Future Scheduled Test Screening for [facility] malignant neoplasm of cervix (procedure) [code = 962939796] Future Scheduled Test INFLUENZA VACCINE [facility] [code = INFLUENZA VACCINE] Encounters Start End Encounter Admission Attending Care Care Encounter Source Date/Time Date/Time Type Type Clinicians Facility Department ID 2019-11-15 2019-11-15 [place] [id number] [address] [place] 00:00:00 00:00:[address] [facility] [address] [...] NRBC#) 0.00 K/mm3 0.0-0.1 N BASIC METABOLIC [id number] 15:08:00 Test Item Value Reference Range Interpretation [...] GFR) formula.Chronic kidney disease is defined as [facility] er kidney damageor GFR <60 mL/min/1.73 m2 for >3 months. CREATININE (test code 0.70 mg/dL 0.55-1.02 N Note change in = CREAT) reference range due to change in reagent. BUN/CREATININE RATIO 24.3 10-20 H (test code = BUN/CREA) CALCIUM (test code = 8.0 mg/dL 8.5-10.1 L CA) [id number] 15:08:00 Test Item Value Reference Range Interpretation Comments TROPONIN-I (test code = TROPI) <0.015 ng/mL 0-0.045 N BASIC METABOLIC [id number] 14:57:00 Test Item Value Reference Range Interpretation [...] CALCIUM (test code = CA) mg/dL 8.5-10.1 [id number] 14:57:00 Test Item Value Reference Range Interpretation Comments TROPONIN-I (test code = TROPI) ng/mL 0-0.045 CBC W/AUTO [id number] 14:57:00 Test Item Value Reference Range Interpretation [...] BA#) K/mm3 0.0-0.2 - XR CHEST 1 [id number] 13:16:00 FAX: Scott Layne MD [phone] [place]: St: REG Name: KIMBER TORO [facility] : 1980 Age/S: 38/F [address] Unit#: [id number] Loc: [place], [place] [address] Phys: Scott Layne MD Acct: [id number] Dis Date: Status: REG ER PHONE #: [phone] Exam Date: 07/23/2019 1314 FAX #: [phone] Reason: SOB EXAMS: CPT CODE: [id number] XR CHEST 1 V 38610 REASON FOR EXAM: SOB EXAM ORDER DATE: 07/23/2019 12:56 PM Ordering: Scott Layne MD Attending:Scott Layne MD Loc ation:[facility] PROCEDURE: - XR CHEST 1 V COMPARISON: FINDINGS: Portable AP frontal view of the chest obtained at 1:14 PM shows clear lungs without evidence of consolidation. There is no evidence of effusion. The heart size is within normal limits. Pulmonary vasculatures are unremarkable. IMPRESSION: No active disease. at 1313 Reported and signed by: Maurice Zambrano M.D. CC: Scott Layne MD Technologist: RT HERMINIA(Julieth) Trnkenneth Date/Time/By: 07/23/2019 (5290) : By: Monika Orig Print D/T: S: 07/23/2019 (1525) PAGE 1 Signed Report
[2020-12-29 14:28] LABS: Urine Blood Trace-intact (Negative); Urine Glucose Negative (Negative); Urine Protein Trace (Negative)
[2020-12-29 14:30] LABS: Absolute Lymphocytes (CBC) 2.6 K/uL (0.7-4.9); Basophils % 0.4 % (0-1.3); Lymphocytes % 21.2 % (15.3-44.8); MPV 7.4 fL (7.6-11.3)
[2020-12-29 14:33] LABS: Protime INR 1.12
[2020-12-29 14:58] LABS: ALT/SGPT 28 U/L (12-78); AST/SGOT 19 U/L (15-37); Albumin 3.6 g/dL (3.4-5.0); Alkaline Phosphatase 128 U/L (45-117); BUN Blood Urea Nitrogen 13 mg/dL (7-18); Bicarbonate 28 mmol/L (21-32); Bilirubin Direct 0.1 mg/dL (0-0.2); Bilirubin Total 0.4 mg/dL (0.2-1.0); Glucose Level 87 mg/dL (74-106); Magnesium 2.3 mg/dL (1.8-2.4); NT PRO-BNP 72 pg/mL (<125); Potassium 3.9 mmol/L (3.5-5.1); Protein, Total 7.2 g/dL (6.4-8.2); Sodium Level 141 mmol/L (136-145); Troponin (Emerg Dept Use Only) < 0.02 ng/mL (0.0-0.045)
[2020-12-29] MEDS ORDERED: CEFTRIAXONE/SWI 1gm 1 GM/10 ML SYR ONE (15:03)
[2020-12-29 15:12] LABS: SARS-COV-2 RT PCR NEGATIVE (NEGATIVE)
[2020-12-29 15:16] LABS: Urine Bacteria LOADED /HPF (<20); Urine RBC <5 /HPF (NONE SEEN)
--- NOTE | 2020-12-29 15:46 | ER ---
Nurse's Notes [facility] Name: Etelvina Salcedo Age: 40 yrs Sex: Female : 1980 Arrival Date: 12/29/2020 Time: 12:50 Bed 10 Private MD: Diagnosis: UTI/ Urinary tract infection, site not specified Presentation: 12/29 13:52 Chief complaint: Patient states: Nose bleeds x 1 wk, lower back pain more in right side kg starting last night, stiff neck, woke up with 102 temp. Pt took 1500 mg Tylenol at 1200. Coronavirus screen: Client denies travel out of the [place] in the last 14 days. At this time, unable to obtain information related to travel outside the [place] At this time, the client does not indicate any symptoms associated with coronavirus-19. Ebola Screen: Patient negative for fever greater than or equal to 101.5 degrees Fahrenheit, and additional compatible Ebola Virus Disease symptoms Patient denies exposure to infectious person. Patient denies travel to an Ebola-affected area in the 21 days before illness onset. 13:52 Method Of Arrival: Ambulatory kg 13:52 Initial Sepsis Screen: Does the patient meet any 2 criteria? No. Patient's initial kg sepsis screen is negative. Does the patient have a suspected source of infection? No. Patient's initial sepsis screen is negative. Risk Assessment: Do you want to hurt yourself or someone else? Patient reports no desire to harm self or others. Onset of symptoms was December 28, 2020. 13:52 Acuity: EARLINE 3 kg Triage Assessment: 13:55 General: Appears in no apparent distress. Behavior is calm, cooperative, appropriate kg for age, quiet. Pain: Complains of pain in left low back and right low back, neck Pain radiates to Generalized Pain currently is 9 out of 10 on a pain scale. level that patient reports is acceptable is 3 out of 10 on a pain scale. 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 - Social history:: Smoking status: Patient denies any tobacco usage or history of. Patient uses alcohol, occasionally. - Family history:: not pertinent. - Hospitalizations: : No recent hospitalization is reported. Screenin:59 Abuse screen: Denies threats or abuse. Denies injuries from another. Nutritional kg screening: No deficits noted. Tuberculosis screening: No symptoms or risk factors identified. Fall Risk None identified. Assessment: 14:35 General: Appears in no apparent distress. comfortable, Behavior is calm, cooperative. vg1 Pain: Complains of pain in lower back and neck Pain currently is 8 out of 10 on a pain scale. Pain began 2-3 days ago. Neuro: Level of Consciousness is awake, alert, obeys commands, Oriented to person, place, time, situation. Cardiovascular: Patient's skin is warm and dry. Respiratory: Airway is patent Respiratory effort is even, unlabored. GI: Abd is soft and non tender X 4 quads. Patient currently denies diarrhea, nausea, vomiting. : No signs and/or symptoms were reported regarding the genitourinary system. EENT: Reports epistaxis for about one week. Derm: Skin is intact, is healthy with good turgor. Musculoskeletal: Circulation, motion, and sensation intact. 15:43 Reassessment: Patient appears in no apparent distress at this time. No changes from vg1 previously documented assessment. Patient and/or family updated on plan of care and expected duration. Pain level reassessed. Patient is alert, oriented x 3, equal unlabored respirations, skin warm/dry/pink. Vital Signs: 13:52 BP 129 / 92; Pulse 92; Resp 20; Temp 97.2; Pulse Ox 100% on R/A; Weight 104.33 kg (R); kg Height 5 ft. 2 in. (157.48 cm) (R); Pain 9/10; 14:38 BP 128 / 79; Pulse 86; Resp 16; Pulse Ox 100% ; vg1 16:11 BP 117 / 77; Pulse 80; Resp 16; Pulse Ox 99% ; vg1 16:17 BP 117 / 70; Pulse 82; Resp 20 S; Pulse Ox 99% on R/A; kg 13:52 Body Mass Index 42.07 (104.33 kg, 157.48 cm) kg ED Course: 12:50 Patient arrived in ED. ds1 13:55 Triage completed. kg 13:55 Arm band placed on right wrist. kg 13:59 Patient has correct armband on for positive identification. kg 14:23 Inserted saline lock: 20 gauge in right antecubital area, using aseptic technique. nm Blood collected. 14:26 Maureen Ray, RN is Primary Nurse. vg1 14:28 Aamir Harrington MD is Attending Physician. rn 16:10 IV discontinued, intact, bleeding controlled, No redness/swelling at site. Pressure ld1 dressing applied. 16:10 No provider procedures requiring assistance completed. ld1 Administered Medications: 14:44 Drug: Rocephin (cefTRIAXone) 1 grams Route: IV; Rate: calculated rate; Site: right vg1 antecubital; 15:43 Follow up: Response: No adverse reaction; IV Status: Completed infusion vg1 16:13 Follow up: Response: No adverse reaction kg 15:43 Drug: [place] (HYDROcodone-acetaminophen) 10 mg-325 mg 1 tabs Route: PO; vg1 16:13 Follow up: Response: No adverse reaction; Pain is decreased kg Outcome: 15:45 Discharge ordered by . rn 16:10 Discharged to home ambulatory. ld1 16:10 Condition: good 16:10 Discharge instructions given to patient, Instructed on discharge instructions, follow up and referral plans. Demonstrated understanding of instructions, follow-up care, medications, Prescriptions given X 1. 16:18 Patient left the ED. kg Addendum: 01/01/2021 07:22 Addendum: Culture Results: Positive urine culture. No further action required. Bacteria e b sensitive to prescribed antibiotic. Signatures: Zehra Steiner ds1 Aamir Harrington MD MD rn Thompson, Moriah mt Botello, Elizabeth eb Garcia, Victoria, MAME VILCHIS vg1 Elvira Richardson RN RN ld1 Ileana Gtz RN RN kg
--- NOTE | 2020-12-29 15:46 | EDPHYS ---
Physician Documentation [facility] Name: Etelvina Salcedo Age: 40 yrs Sex: Female : 1980 Arrival Date: 12/29/2020 Time: 12:50 Bed 10 Private MD: ED Physician Aamir Harrington HPI: 12/29 15:07 This 40 yrs old Female presents to ER via Ambulatory with complaints of Back rn Pain, Congestion, Headache. 15:07 The patient reports fever, not measured (subjective). rn 15:08 Onset: The symptoms/episode began/occurred 2 day(s) ago. Modifying factors: there are rn no obvious modifying factors. Associated signs and symptoms: Pertinent positives: runny nose, sinus congestion, Pertinent negatives: abdominal pain, altered mental status, chest pain, cough, diarrhea, skin rash, shortness of breath, swelling, vomiting. Severity of symptoms: At their worst the symptoms were mild in the emergency department the symptoms are unchanged. The patient has not experienced similar symptoms in the past. The patient has not recently seen a physician. Patient reports a few days of not feeling well, sinus congestion, total body aches and neck pain, low back pain, subjective fever and chills, fatigue. Denies any focal neurological deficits, no chest pain, no abdominal pain, no vomiting.. 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 - Social history:: Smoking status: Patient denies any tobacco usage or history of. Patient uses alcohol, occasionally. - Family history:: not pertinent. - Hospitalizations: : No recent hospitalization is reported. ROS: 15:08 Constitutional: Positive for fever and chills Eyes: Negative for injury, pain, redness, rn and discharge, ENT: Positive for sinus congestion Neck: Negative for injury, pain, and swelling, Cardiovascular: Negative for chest pain, palpitations, and edema, Respiratory: Negative for shortness of breath, cough, wheezing, and pleuritic chest pain, Abdomen/GI: Negative for abdominal pain, nausea, vomiting, diarrhea, and constipation, Back: Negative for injury and pain, : Negative for injury, bleeding, discharge, and swelling, MS/Extremity: Negative for injury and deformity, Skin: Negative for injury, rash, and discoloration, Neuro: Negative for headache, numbness, tingling, and seizure. 15:08 All other systems are negative. Exam: 15:08 Constitutional: This is a well developed, well nourished patient who is awake, alert, rn and in no acute distress. Head/Face: Normocephalic, atraumatic. Eyes: Pupils equal round and reactive to light, extra-ocular motions intact. Lids and lashes normal. Conjunctiva and sclera are non-icteric and not injected. Cornea within normal limits. Periorbital areas with no swelling, redness, or edema. ENT: No stridor Neck: Trachea midline, no masses palpated, and no cervical lymphadenopathy. Supple, full range of motion without nuchal rigidity, or vertebral point tenderness. No Meningismus. Cardiovascular: Regular rate and rhythm. No pulse deficits. Respiratory: No increased work of breathing, no retractions or nasal flaring. Abdomen/GI: Soft, non-tender Back: No spinal tenderness. No costovertebral tenderness. Full range of motion. Skin: Warm, dry MS/ Extremity: Pulses equal, no cyanosis. Neuro: Awake and alert, GCS 15 Vital Signs: 13:52 BP 129 / 92; Pulse 92; Resp 20; Temp 97.2; Pulse Ox 100% on R/A; Weight 104.33 kg (R); kg Height 5 ft. 2 in. (157.48 cm) (R); Pain 9/10; 14:38 BP 128 / 79; Pulse 86; Resp 16; Pulse Ox 100% ; vg1 16:11 BP 117 / 77; Pulse 80; Resp 16; Pulse Ox 99% ; vg1 16:17 BP 117 / 70; Pulse 82; Resp 20 S; Pulse Ox 99% on R/A; kg 13:52 Body Mass Index 42.07 (104.33 kg, 157.48 cm) kg MDM: 14:28 Patient medically screened. rn 15:43 Differential diagnosis: viral Infection, bacterial infection, UTI, gastroenteritis. rn Differential diagnosis: URI. Data reviewed: vital signs, nurses notes, lab test result(s), and as a result, I will discharge patient. Data interpreted: personnel monitor: rate is 86 beats/min, rhythm is normal sinus rhythm, regular, with no ectopy, Interpretation: normal rate, normal rhythm, Pulse oximetry: on room air is 100 %. Interpretation: normal. Counseling: I had a detailed discussion with the patient and/or guardian regarding: the historical points, exam findings, and any diagnostic results supporting the discharge/admit diagnosis, lab results, the need for outpatient follow up, to return to the emergency department if symptoms worsen or persist or if there are any questions or concerns that arise at home. Response to treatment: the patient's symptoms have mildly improved after treatment, and as a result, I will discharge patient. Special discussion: I discussed with the patient/guardian in detail that at this point there is no indication for admission to the hospital. It is understood, however, that if the symptoms persist or worsen the patient needs to return immediately for re-evaluation. 12/29 14:02 Order name: Basic Metabolic Panel kg 12/29 14:02 Order name: CBC with Diff kg 12/29 14:02 Order name: LFT's kg 12/29 14:02 Order name: Magnesium kg 12/29 14:02 Order name: NT PRO-BNP; Complete Time: 15:25 kg 12/29 14:02 Order name: PT-INR; Complete Time: 14:35 kg 12/29 14:02 Order name: Troponin (emerg Dept Use Only); Complete Time: 15:25 kg 12/29 14:02 Order name: Basic Metabolic Panel; Complete Time: 15:25 EDMS 12/29 14:02 Order name: CBC with Automated Diff; Complete Time: 14:35 EDMS 12/29 14:02 Order name: Liver (Hepatic) Function; Complete Time: 15:25 EDMS 12/29 14:02 Order name: Magnesium; Complete Time: 15:25 EDMS 12/29 14:28 Order name: Urine Dipstick-Ancillary ED12/29 14:02 Order name: IV Saline Lock; Complete Time: 14:23 kg 12/29 14:02 Order name: Labs collected and sent; Complete Time: 14:23 kg 12/29 14:02 Order name: Urine Dipstick-Ancillary (obtain specimen); Complete Time: 14:38 kg 12/29 14:28 Order name: Urine Microscopic Only; Complete Time: 15:25 ss 12/29 14:28 Order name: Urine Culture ss 12/29 14:31 Order name: Urine --Ancillary (enter results) bd 12/29 14:32 Order name: Urine --Ancillary; Complete Time: 15:25 EDMS 12/29 15:12 Order name: COVID-19/FLU A+B; Complete Time: 15:25 EDMS Administered Medications: 14:44 Drug: Rocephin (cefTRIAXone) 1 grams Route: IV; Rate: calculated rate; Site: right vg1 antecubital; 15:43 Follow up: Response: No adverse reaction; IV Status: Completed infusion vg1 16:13 Follow up: Response: No adverse reaction kg 15:43 Drug: [place] (HYDROcodone-acetaminophen) 10 mg-325 mg 1 tabs Route: PO; vg1 16:13 Follow up: Response: No adverse reaction; Pain is decreased kg Disposition Summary: 12/29/20 15:45 Discharge Ordered Location: Home rn Problem: new rn Symptoms: have improved rn Condition: Stable rn Diagnosis - UTI/ Urinary tract infection, site not specified rn Followup: rn - With: Private Physician - When: As needed - Reason: Recheck today's complaints, Re-evaluation by your physician Discharge Instructions: - Discharge Summary Sheet rn - Dysuria rn - Urinary Tract Infection, Adult rn Forms: - Medication Reconciliation Form rn - Thank You Letter rn - Antibiotic 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 EDMS EDMS 14:27 14:02 CORONAVIRUS+MR.LAB.BRZ ordered. EDMS EDMS
[2020-12-29] MEDS ORDERED: HYDROCODONE/APAP 10/325 TAB ONE (16:03)
[2020-12-29 16:34] VITALS: TEMP 97.2
[2020-12-29 16:35] VITALS: O2SAT 99
[2020-12-29 16:36] VITALS: BP 117/70
== END 2020-12-29 16:18 | disposition home or self-care (01) ==
LOC: ER 12:49
DX: N39.0 Urinary tract infection, site not specified (principal); E11.9 Type 2 diabetes mellitus without complications; Z20.822 Contact with and (suspected) exposure to COVID-19
CPT/HCPCS: 0240U; 36415; 80048; 80076; 81003; 81015; 81025; 83735; 83880; 84484; 85025; 85610; 87077; 87086; 87088; 87186; 96365; 99284; J0696

== ENCOUNTER 2021-05-03 07:19 | Emergency (ER) | payer SELFPAY ==
--- OUTSIDE RECORDS SUMMARY | 2021-05-03 07:22 | XMS REPORT | Continuity of Care Document ---
:[address] [facility] t Address [address] [place] [address] Care Team Providers Name Role Phone HOLLAND, E Primary Care Physician Unavailable Sundar VARGAS Attending Clinician Unavailable Physician, Primary or Family Admitting Clinician Unavailabl e Payers Payer Name Policy Type Policy Number Effective Date Expiration Date S ource Problems Condition Condition Condition Status Onset Resolution Last Treating Co mments Source Name Details Category Date Date Treatment Clinician Date Toxic Toxic Disease Active 0 [facility] metabolic metabolic 8-27 [facility] encephalop 00:00: [facility] at[facility] athy 00 l Allergies, Adverse Reactions, Alerts Allergy Allergy Status Severity Reaction(s) Onset Inactive Treating Comm ents Source Name Type Date Date Clinician No Known DA Active U 2019-0 [facility] No Known DA Active U 2019-0 [facility] 2[facility]11 [facility] TRAZODON DRUG Active Other-Cmnt 2015- Univ ers E INGREDI 0-20 [facility] 00:[facility]: [place] [facility] Family History Family Member Diagnosis Comments Start Date Stop Date Source Natural [facility] Social History Social Habit Start Date Stop Date Quantity Comments Source History [facility] Tobacco use and 2019-11-15 2019-11-15 [facility] used [facility] Alcohol intake 2019-11-15 2019-11-15 [facility] 00:00:[facility]00 [facility]-drinker [facility] (finding) History SDOH 2019-11-15 2019-11-15 1 [facility] 00:[facility]:00 [facility]:00 [facility]ospita [facility] Sex Assigned At [birth year] [facility] Smoking Status Start Date Stop Date Source [facility] Medications Ordered Filled Start Stop Current Ordering Indication Dosage Frequency Signature Comments Components Source Medication Medication Date Date Medication? Clinician (SIG) Name Name ondansetron Yes 4mg Q8H Take 1 Meth kody (ZOFRAN) 4 01-07 tablet (4 st MG tablet 00:00: mg total) Hos [facility]annon 00 by mouth l every 8 (eight) hours as needed for nausea or vomiting. Procedures This patient has no known procedures. Plan of Care Planned Activity Planned Date Details Comments Source Future Scheduled Test Hepatitis C screening [facility] (procedure) [code = 036989089] Future Scheduled Test [facility] malignant neoplasm of cervix (procedure) [code = 413593589] Future Scheduled Test INFLUENZA VACCINE [facility] [code = INFLUENZA VACCINE] Future Scheduled Test COVID-19 VACCINE (1) [facility] [code = COVID-19 VACCINE (1)] Encounters Start End Encounter Admission Attending Care Care Encounter Source Date/Time Date/Time Type Type Clinicians Facility Department ID 2019-07-23 Inpatient [facility] [id number] [facility] 12:26:00 [id number] [facility] 2019-06-18 Inpatient [facility] [id number] [facility] 10:06:00 [id number] [facility] 2020-07-07 2020-07-07 Outpatient Julieth VARGAS [facility] [id number] Univers 12:40:00 12:50:08 LIZBET [facility] 2020-06-16 2020-06-16 [facility] [id number] [facility] 11:50:00 13:54:27 [facility] Results Test Description Test Time Test Comments [...] NRBC#) 0.00 K/mm3 0.0-0.1 N BASIC METABOLIC [id number] 15:08:00 Test Item Value Reference Range Interpretation [...] code = 8.0 mg/dL 8.5-10.1 L CA) [id number] 15:08:00 Test Item Value Reference Range Interpretation Comments TROPONIN-I (test code = TROPI) <0.015 ng/mL 0-0.045 N BASIC METABOLIC [id number] 14:57:00 Test Item Value Reference Range Interpretation [...] CALCIUM (test code = CA) mg/dL 8.5-10.1 [id number] 14:57:00 Test Item Value Reference Range Interpretation Comments TROPONIN-I (test code = TROPI) ng/mL 0-0.045 CBC W/AUTO [id number] 14:57:00 Test Item Value Reference Range Interpretation [...] BA#) K/mm3 0.0-0.2 - XR CHEST 1 [id number] 13:16:00 FAX: Soctt Layne MD [phone] [place]: St: REG Name: KIMBER TORO [facility] : 1980 Age/S: 38/F [address] Unit#: [id number] Loc: [place] [address] Phys: Scott Lyane MD Acct: [id number] Dis Date: Status: REG ER PHONE #: [phone] Exam Date: 07/23/2019 1314 FAX #: [phone] Reason: SOB EXAMS: CPT CODE: [id number] XR CHEST 1 V [id number] REASON FOR EXAM: SOB EXAM ORDER DATE: 07/23/2019 12:56 PM Ordering: Scott Layne MD Attending:Scott Layne MD Loc ation:[facility] PROCEDURE: - XR CHEST 1 V COMPARISON: [...] MD Technologist: AYLA HOPE) Trnscrd Date/Time/By: 07/23/2019 (2683) : By: Monika Orig Print D/T: S: 07/23/2019 (5617) PAGE 1 Signed Report
[2021-05-03] MEDS ORDERED: ONDANSETRON 4 MG (ODT) TAB ONE (08:22)
[2021-05-03] MEDS ORDERED: GUAIFENESIN/CODEINE 5ML UCUP ONE (08:24)
[2021-05-03 09:24] LABS: SARS-COV-2 RT PCR NEGATIVE (NEGATIVE)
--- NOTE | 2021-05-03 09:36 | EDPHYS ---
Physician Documentation [facility] Name: Etelvina Salcedo Age: 40 yrs Sex: Female : 1980 Arrival Date: 05/03/2021 Time: 07:20 Bed 12 Private MD: LENNOX Physician Barrera Weaver HPI: 05/03 08:19 This 40 yrs old Female presents to ER via Ambulatory with complaints of Sore pm1 Throat, Fever, Ear Pain. 08:19 The patient or guardian reports cough, body aches, sore throat, nasal congestion and pm1 bilateral ear pain, fever. Onset: The symptoms/episode began/occurred yesterday. Severity of symptoms: in the emergency department the symptoms are unchanged. Modifying factors: The symptoms are alleviated by Tylenol. Associated signs and symptoms: Pertinent positives: earache, fever, Pertinent negatives: chest pain, diarrhea, vomiting, shortness of breath. The patient has not experienced similar symptoms in the past. 08:19 The patient has not recently seen a physician. With exposure to family member who pm1 tested positive for Covid. 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 - Social history:: Smoking status: Patient denies any tobacco usage or history of. ROS: 08:19 Eyes: Negative for injury, pain, redness, and discharge. pm1 08:19 Cardiovascular: Negative for chest pain, palpitations, and edema. 08:19 Abdomen/GI: Negative for abdominal pain, nausea, vomiting, diarrhea, and constipation, Back: Negative for injury and pain, MS/Extremity: Negative for injury and deformity, Skin: Negative for injury, rash, and discoloration, Neuro: Negative for headache, weakness, numbness, tingling, and seizure. 08:19 Constitutional: Positive for body aches, fever, Negative for poor PO intake. 08:19 ENT: Positive for ear pain, sore throat, Negative for difficulty swallowing, difficulty handling secretions, hoarseness. 08:19 Respiratory: Positive for cough, Negative for shortness of breath. 08:19 All other systems are negative. Exam: 08:19 Constitutional: This is a well developed, well nourished patient who is awake, alert, pm1 and in no acute distress. Head/Face: Normocephalic, atraumatic. 08:19 Back: No spinal tenderness. No costovertebral tenderness. Full range of motion. Skin: Warm, dry with normal turgor. Normal color with no rashes, no lesions, and no evidence of cellulitis. MS/ Extremity: Pulses equal, no cyanosis. Neurovascular intact. Full, normal range of motion. 08:19 Eyes: Exam is negative for acute changes, Periorbital structures: no acute changes, Extraocular movements: no acute changes, Conjunctiva: no acute changes, no injection, Sclera: no acute changes, icterus, is not appreciated. 08:19 ENT: Exam is negative for acute changes, TM's: no acute changes, Mouth: no acute changes, Lips: normal, moist, Oral mucosa: normal, pink and intact, moist. 08:19 Cardiovascular: Exam negative for acute changes, Rate: normal, Rhythm: regular, Pulses: no pulse deficits are appreciated, Heart sounds: normal, normal S1and S2. 08:19 Respiratory: Exam negative for acute changes, respiratory distress, shortness of breath, Breath sounds: are clear throughout. 08:19 Abdomen/GI: Inspection: abdomen appears normal, Palpation: abdomen is soft and non-tender, in all quadrants. 08:19 Neuro: Exam negative for acute changes, Orientation: is normal, Mentation: is normal, Motor: is normal, moves all fours. Vital Signs: 08:01 BP 125 / 88; Pulse 78; Resp 18; Temp 98.9(TE); Pulse Ox 98% on R/A; Weight 97.52 kg; ap3 Height 5 ft. 2 in. (157.48 cm); Pain 8/10; 10:00 BP 120 / 71; Pulse 78; Resp 17; Pulse Ox 99% on R/A; ll1 08:01 Body Mass Index 39.32 (97.52 kg, 157.48 cm) ap3 MDM: 08:09 Patient medically screened. pm1 09:34 Data reviewed: vital signs. Data interpreted: Pulse oximetry: on room air is 98 %. pm1 Interpretation: normal. Counseling: I had a detailed discussion with the patient and/or guardian regarding: the historical points, exam findings, and any diagnostic results supporting the discharge/admit diagnosis, lab results, the need for outpatient follow up, to return to the emergency department if symptoms worsen or persist or if there are any questions or concerns that arise at home. 05/03 08:18 Order name: COVID-19/FLU A+B (Document "Date of Onset" if Symptomatic) pm1 05/03 08:18 Order name: Strep pm1 05/03 08:19 Order name: COVID-19/FLU A+B; Complete Time: 09:28 EDMS 05/03 08:19 Order name: Group A Streptococcus Rapid Sc; Complete Time: 09:28 EDMS 05/03 08:23 Order name: Glucose, Ancillary Testing EDMS 05/03 09:23 Order name: Throat Culture EDMS Administered Medications: 08:26 Drug: Ondansetron 4 mg Route: PO; ap3 10:02 Follow up: Response: No adverse reaction ll1 08:26 Drug: guaiFENesin AC (codeine-guaifenesin) Liquid (10 mg-100 mg/5 mL) 10 ml Route: PO; ap3 10:02 Follow up: Response: No adverse reaction ll1 Disposition Summary: 05/03/21 09:35 Discharge Ordered Location: Home pm1 Problem: new pm1 Symptoms: have improved pm1 Condition: Stable pm1 Diagnosis - Acute upper respiratory infection, unspecified pm1 Followup: pm1 - With: Emergency Department - When: As needed - Reason: Recheck today's complaints, Continuance of care, Re-evaluation by your physician Discharge Instructions: - Discharge Summary Sheet pm1 - Upper Respiratory Infection, Adult pm1 - COVID-19: What Your Test Results Mean - [facility] pm1 - COVID-19 Frequently Asked Questions pm1 Forms: - Medication Reconciliation Form pm1 - Thank You Letter pm1 - Antibiotic Education pm1 - Prescription Opioid Use pm1 - Work release form ll1 Prescriptions: - Guaifenesin AC 10-100 mg/5 mL Oral Liquid - take 10 milliliters by ORAL route every 4 hours As needed; 240 milliliter; pm1 Refills: 0, Product Selection Permitted Addendum: 05/04/2021 12:50 Co-signature as Attending Physician, Barrera Weaver MD I agree with the assessment and c weinstein plan of care. Signatures: Dispatcher [employer] Barrera Moreno MD MD cha Marinas, Patrick, POSTING SPECIALIST POSTING SPECIALIST pm1 Christine Truong RN RN ap3 Elke De La Rosa RN ll1 Corrections: (The following items were deleted from the chart) 05/03 08:05 08:04 PMHx: Hypothyroidism; ap3 ap3 08:05 08:04 PMHx: Seizure; ap3 ap3
--- NOTE | 2021-05-03 09:36 | ER ---
Nurse's Notes [facility] Name: Etelvina Salcedo Age: 40 yrs Sex: Female : 1980 Arrival Date: 05/03/2021 Time: 07:20 Bed 12 Private MD: Diagnosis: Acute upper respiratory infection, unspecified Presentation: 05/03 08:01 Chief complaint: Patient states: she has a cough, congestion, sore throat and just ap3 feels "bad". Patient reports daughter tested positive for Covid over the weekend and she was around her daughter for [employer]. Patient Reports having a fever yesterday of 101.3, and it responded well to Tylenol. Coronavirus screen: congestion, cough unrelated to allergies, fever, runny nose, sore throat, Client presents with at least one sign or symptom that may indicate coronavirus-19. Standard/surgical mask placed on the client. Provider contacted for isolation considerations. Ebola Screen: No symptoms or risks identified at this time. Initial Sepsis Screen: Does the patient meet any 2 criteria? No. Patient's initial sepsis screen is negative. Does the patient have a suspected source of infection? No. Patient's initial sepsis screen is negative. Risk Assessment: Do you want to hurt yourself or someone else? Patient reports no desire to harm self or others. Onset of symptoms was May 02, 2021. 08:01 Method Of Arrival: Ambulatory ap3 08:01 Acuity: EARLINE 4 ap3 Triage Assessment: 08:05 General: Appears in no apparent distress. Behavior is calm, cooperative. General: ap3 Reports chills for 12-24 hours, fever for 12-24 hours, feeling ill for 12-24 hours, fatigue for 12-24 hours. Pain: Complains of pain in generalized Pain began gradually. EENT: Reports difficulty swallowing pain in throat. EENT: Reports pain in throat and right ear. Neuro: Level of Consciousness is awake, alert, obeys commands, Oriented to person, place, time, situation, Appropriate for age. Cardiovascular: Patient's skin is warm and dry. Respiratory: Airway is patent Respiratory effort is even, unlabored, Respiratory pattern is regular, symmetrical. 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 - Social history:: Smoking status: Patient denies any tobacco usage or history of. Screenin:07 Abuse screen: Denies threats or abuse. Nutritional screening: No deficits noted. ap3 Tuberculosis screening: No symptoms or risk factors identified. Fall Risk None identified. Assessment: 08:19 Respiratory: Airway is patent Breath sounds are clear bilaterally. ap3 08:20 EENT: Throat is pink. ap3 09:00 Reassessment: No changes from previously documented assessment. Patient and/or family ll1 updated on plan of care and expected duration. Pain level reassessed. Patient is alert, oriented x 3, equal unlabored respirations, skin warm/dry/pink. Respiratory: Trachea midline Respiratory effort is even, unlabored. 10:01 Reassessment: No changes from previously documented assessment. Patient and/or family ll1 updated on plan of care and expected duration. Pain level reassessed. Patient is alert, oriented x 3, equal unlabored respirations, skin warm/dry/pink. Vital Signs: 08:01 BP 125 / 88; Pulse 78; Resp 18; Temp 98.9(TE); Pulse Ox 98% on R/A; Weight 97.52 kg; ap3 Height 5 ft. 2 in. (157.48 cm); Pain 8/10; 10:00 BP 120 / 71; Pulse 78; Resp 17; Pulse Ox 99% on R/A; ll1 08:01 Body Mass Index 39.32 (97.52 kg, 157.48 cm) ap3 ED Course: 07:20 Patient arrived in ED. ds1 08:04 Triage completed. ap3 08:07 Arm band placed on right wrist. ap3 08:07 Patient has correct armband on for positive identification. Call light in reach. Pulse ap3 ox on. NIBP on. Door closed. Noise minimized. 08:09 Zion Israel NP is PHCP. pm1 08:09 Barrera Weaver MD is Attending Physician. pm1 08:19 Prokisch, Christine, RN is Primary Nurse. ap3 08:26 COVID swab sent to lab. Flu and/or RSV swab sent to lab. Strep swab sent to lab. ap3 10:02 No provider procedures requiring assistance completed. Patient did not have IV access ll1 during this emergency room visit. Administered Medications: 08: Drug: Ondansetron 4 mg Route: PO; ap3 10:02 Follow up: Response: No adverse reaction ll1 08:26 Drug: guaiFENesin AC (codeine-guaifenesin) Liquid (10 mg-100 mg/5 mL) 10 ml Route: PO; ap3 10:02 Follow up: Response: No adverse reaction ll1 Outcome: 09:35 Discharge ordered by . pm1 10:02 Discharged to home ambulatory. ll1 10:02 Condition: stable 10:02 Discharge instructions given to patient, Instructed on discharge instructions, follow up and referral plans. no drinking with medication, no driving heavy equipment, medication usage, Demonstrated understanding of instructions, follow-up care, medications, Prescriptions given X 1. 10:03 Patient left the ED. 1 Signatures: Zehra Steiner ds1 Zion Israel, NURSING PROJECT COORDINATOR NURSING PROJECT COORDINATOR pm1 Christine Truong, RN RN ap3 Elke De La Rosa RN RN ll1 Corrections: (The following items were deleted from the chart) 08:05 08:04 PMHx: Hypothyroidism; ap3 ap3 08:05 08:04 PMHx: Seizure; ap3 ap3
[2021-05-03 10:09] VITALS: TEMP 98.9
[2021-05-03 10:10] VITALS: BP 120/71; O2SAT 99
== END 2021-05-03 10:03 | disposition home or self-care (01) ==
LOC: ER 07:19
DX: J06.9 Acute upper respiratory infection, unspecified (principal); Z20.822 Contact with and (suspected) exposure to COVID-19
CPT/HCPCS: 0240U; 82947; 87070; 87081; 99284

== ENCOUNTER 2022-03-01 10:55 | Emergency (ER) | payer OTHER, SELFPAY ==
--- OUTSIDE RECORDS SUMMARY | 2022-03-01 10:58 | XMS REPORT | Continuity of Care Document ---
:1980 Author Organization [facility] t Address [address] [place] [address] Care Team Providers Name Role Phone RENNY HOLLAND Primary Care Physician Unavailable LIZBET VARGAS Attending Clinician Unavailable Physician, No Primary or Family Admitting Clinician Unavaila ble Payers Payer Name Policy Type Policy Number [...] DA Active U 2019-0 [facility] No Known DA Active U 2020-0 [facility] 00:[facility] TRAZODON DRUG Active Other-Cmnt 2015- Univ ers E INGREDI 0-20 ity of 00:00: [place] [address] [facility] Family History Family Member Diagnosis Comments Start Date Stop Date Source Natural [facility] Social History Social Habit Start Date Stop Date Quantity Comments Source History [facility] Tobacco use and 2019-11-15 2019-11-15 [facility] Alcohol intake 2019-11-15 2019-11-15 [facility] 00:[facility]00 non-drinker Hospital (finding) History SDOH 2019-11-15 2019-11-15 1 [facility] 00:[facility] 00:[facility]:00 [facility]ospita l Sex Assigned At [birth year] [facility] Smoking Status Start Date Stop Date Source [facility] Medications Ordered Filled Start Stop Current Ordering Indication Dosage Frequency Signature Comments Components Source Medication Medication Date Date Medication? Clinician (SIG) Name Name ondansetron 2019-0 Yes 4mg Q8H Take 1 Meth kody (ZOFRAN) 4 9-02 tablet (4 st MG tablet 00:00: mg total) Hos [facility] 00 by mouth l every 8 (eight) hours as needed for nausea or vomiting. ondansetron 0 Yes 4mg Q8H Take 1 Meth kody (ZOFRAN) 4 9-02 tablet (4 st MG tablet 00:00: mg total) Hos shannon 00 by mouth l every 8 (eight) hours as needed for nausea or vomiting. Procedures This patient has no known procedures. Plan of Care Planned Activity Planned Date Details Comments Source Future Scheduled 2022-03-01 [facility] 10:58:11 VACCINES (1 of 3 - 3-dose series) [code = HEPATITIS B VACCINES (1 of 3 - 3-dose series)] Future Scheduled 2022-03-01 COVID-[address] [facility] Test 10:58:11 (#1) [code = COVID-19 VACCINE (#1)] Future Scheduled 2022-03-01 [facility]atitis C [facility] Test 10:58:11 screening (procedure) [code = 870266444] Future Scheduled 2022-03-01 [facility] Test 10:58:11 malignant neoplasm of cervix (procedure) [code = 933024321] Future Scheduled 2022-03-01 BREAST CANCER [facility] Test 10:58:11 SCREENING [code = BREAST CANCER SCREENING] Future Scheduled 2022-03-01 INFLUENZA [facility]ACCINE [facility] 10:58:11 [code = INFLUENZA VACCINE] Future Scheduled [facility] screening (procedure) [code = 607772274] Future Scheduled [facility] Test malignant neoplasm of cervix (procedure) [code = 118011688] Future Scheduled [facility] [code = INFLU[facility]ZA VACCINE] Future Scheduled COVID-19 [facility] Test (1) [code = COVID-19 VACCINE (1)] Encounters Start End Encounter Admission Attending Care Care Encounter Source Date/Time Date/Time Type Type Clinicians Facility Department ID 2019-07-23 Inpatient [facility] [id number] [facility] 12:26:00 79 [facility] 2019-06-18 Inpatient [facility] [id number] [facility] 10:06:00 67 [facility] 2020-07-07 2020-07-07 [facility] [id number] [facility] 12:40:00 12:50:08 [facility] 2020-06-16 2020-06-16 [facility] [id number] [facility] 11:50:00 13:54:27 [facility] Results Test Description Test Time Test Comments [...] NRBC#) 0.00 K/mm3 0.0-0.1 N BASIC METABOLIC [id number] 15:08:00 Test Item Value Reference Range Interpretation [...] code = 8.0 mg/dL 8.5-10.1 L CA) [id number] 15:08:00 Test Item Value Reference Range Interpretation Comments TROPONIN-I (test code = TROPI) <0.015 ng/mL 0-0.045 N BASIC METABOLIC [id number] 14:57:00 Test Item Value Reference Range Interpretation [...] CALCIUM (test code = CA) mg/dL 8.5-10.1 [id number] 14:57:00 Test Item Value Reference Range Interpretation Comments TROPONIN-I (test code = TROPI) ng/mL 0-0.045 CBC W/AUTO [id number] 14:57:00 Test Item Value Reference Range Interpretation [...] BA#) K/mm3 0.0-0.2 - XR CHEST 1 [id number] 13:16:00 FAX: Scott Layne MD [phone] [place]: St: REG Name: KIMBER TORO [facility] : 1980 Age/S: 38/F [address] Unit #: [id number] Loc: [place] [address] Phys: Scott Layne MD Acct: [id number] Dis Date: Status: REG ER PHONE #: [phone] Exam Date: 07/23/2019 1314 FAX #: [phone] Reason: SOB EXAMS: CPT CODE: [id number] XR CHEST 1 V [id number] REASON FOR EXAM: SOB EXAM ORDER DATE: 07/23/2019 12:56 PM Ordering: Scott Layne MD Attending:Scott Layne MD Location:[facility] PROCEDURE: - XR CHEST 1V COMPARISON: FINDINGS: Portable AP frontal view of the chest obtained at 1:14 PM shows clear lungswithout evidence of consolidation. There is no evidence of effusion. The heart size is within normal limits. Pulmonary vasculatures are unremarkable. IMPRESSION: No active disease. at 1316 Reported and signed by: Maurice Zambrano M.D. CC: Scott Layne MD Technologist: RT LORI(Julieth) Trnschugo Date/Time/By: 07/23/2019 (7954) : By: Monika Orig Print D/T: S: 07/23/2019 (7067) PAGE 1 Signed Report
[2022-03-01 11:45] LABS: Absolute Lymphocytes (CBC) 2.3 K/uL (0.7-4.9); Hematocrit 40.4 % (36.0-45.0); Lymphocytes % 36.6 % (15.3-44.8); MCV 90.6 fL (80-100); MPV 7.6 fL (7.6-11.3); RBC Red Blood Cell Count 4.45 M/uL (3.86-4.86)
[2022-03-01 12:04] LABS: Albumin 3.3 g/dL (3.4-5.0); Bilirubin Total 0.6 mg/dL (0.2-1.0); Potassium 3.3 mmol/L (3.5-5.1)
[2022-03-01] MEDS ORDERED: ONDANSETRON 4 MG/2 ML VIAL ONE (12:07)
[2022-03-01] MEDS ORDERED: MORPHINE 4 MG/ML SYR ONE (12:07)
[2022-03-01 13:00] LABS: Urine Blood Trace-intact (Negative); Urine Glucose Negative (Negative); Urine Protein Negative (Negative)
--- NOTE | 2022-03-01 14:05 | RAD REPORT ---
EXAM DESCRIPTION: CTAbdomen Pelvis W Contrast - 03/01/2022 1:46 pm CLINICAL HISTORY: RUQ pain COMPARISON: Abdomen Pelvis W Contrast dated 02/22/2016; CT ABD PELVIS W CONTRAST dated 10/27/2007; Head C Spine Cap Wo Con dated 04/06/2018 TECHNIQUE: CT of the abdomen and pelvis was performed with IV contrast. All CT scans are performed using dose optimization technique as appropriate and may include automated exposure control or mA/KV adjustment according to patient size. FINDINGS: Lower chest: No acute abnormality. Liver: No acute abnormality or suspicious lesions. Biliary: Cholecystectomy extrahepatic biliary ductal dilatation measuring up to 9 millimeters which m ay be related to the postcholecystectomy state. The ductal dilatation has increased since 02/22/2016. Stomach: Francis-en-Y gastric bypass. Duodenum: No significant focal abnormality. Pancreas: No significant abnormality. Spleen: No significant abnormality. Adrenal: No suspicious lesions. Kidney/ureter: No hydronephrosis. No renal calculi. Too small to characterize and/or benign appearing renal lesions are noted. Retroperitoneum: No retroperitoneal adenopathy. Vascular: No aneurysm. Bowel: No significant focal abnormality. Appendectomy. Peritoneum: No ascites or free air. Bladder: Grossly unremarkable. Reproductive: No adnexal masses. IUD. Bones: No acute fracture. Other: n/a IMPRESSION: No acute intra-abdominal or pelvic finding. Status post Francis-en-Y gastric bypass. Cholec ystectomy with increased biliary ductal dilatation. This could reflect the postcholecystectomy state. Correlate with LFTs. If abnormal, could consider further evaluation with MRCP.
--- NOTE | 2022-03-01 14:20 | EDPHYS ---
Physician Documentation [facility] Name: Etelvina Salcedo Age: 41 yrs Sex: Female : 1980 Arrival Date: 03/01/2022 Time: 10:56 Bed Treatment Private MD: Miguel Ángel Ramírez E ED Physician Jeff Cordero HPI: 03/01 11:09 This 41 yrs old Female presents to ER via Unassigned with complaints of RUQ pm1 pain. 11:09 The patient presents with abdominal pain in the right upper quadrant. Onset: The pm1 symptoms/episode began/occurred 3 day(s) ago. The symptoms do not radiate. Associated signs and symptoms: Pertinent negatives: nausea, vomiting, and diarrhea, chest pain, shortness of breath. The symptoms are described as crampy. Modifying factors: The symptoms are alleviated by nothing, the symptoms are aggravated by movement, sitting up and bending over. Severity of pain: in the emergency department the pain is actually worse. The patient has not experienced similar symptoms in the past. The patient has not recently seen a physician. Patient was moving and lifting throughout the weekend and is concerned that she might have a hernia. 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 - Social history:: Smoking status: Patient denies any tobacco usage or history of. ROS: 11:12 Constitutional: Negative for fever, chills, and weight loss, Cardiovascular: Negative pm1 for chest pain, palpitations, and edema, Respiratory: Negative for shortness of breath, cough, wheezing, and pleuritic chest pain. 11:12 Back: Negative for injury and pain, : Negative for injury, bleeding, discharge, and swelling, MS/Extremity: Negative for injury and deformity, Skin: Negative for injury, rash, and discoloration, Neuro: Negative for headache, weakness, numbness, tingling, and seizure. 11:12 Abdomen/GI: Positive for abdominal pain, of the right upper quadrant, Negative for nausea, vomiting, and diarrhea. 11:12 All other systems are negative. Exam: 11:12 Constitutional: This is a well developed, well nourished patient who is awake, alert, pm1 and in no acute distress. Head/Face: Normocephalic, atraumatic. 11:12 Back: No spinal tenderness. No costovertebral tenderness. Full range of motion. Skin: Warm, dry with normal turgor. Normal color with no rashes, no lesions, and no evidence of cellulitis. MS/ Extremity: Pulses equal, no cyanosis. Neurovascular intact. Full, normal range of motion. 11:12 Eyes: Exam is negative for acute changes, Periorbital structures: no acute changes, Pupils: no acute changes, Extraocular movements: no acute changes, Conjunctiva: no acute changes, no injection. 11:12 ENT: Exam is negative for acute changes, Mouth: no acute changes, Lips: normal, moist, Oral mucosa: normal, pink and intact, moist. 11:12 Cardiovascular: Exam negative for acute changes, Rate: normal, Rhythm: regular, Pulses: no pulse deficits are appreciated. 11:12 Respiratory: Exam negative for acute changes, respiratory distress, shortness of breath. 11:12 Abdomen/GI: Inspection: obese Palpation: soft, in all quadrants, moderate abdominal tenderness, in the right upper quadrant. 11:12 Neuro: Exam negative for acute changes, Orientation: is normal, Mentation: is normal, Motor: is normal, moves all fours. Vital Signs: 11:05 BP 141 / 90; Pulse 72; Resp 16; Temp 98.5; Pulse Ox 99% on R/A; Weight 99.79 kg; Height ll1 5 ft. 2 in. (157.48 cm); Pain 8/10; 12:01 BP 112 / 64; Pulse 68; Resp 16; Pulse Ox 99% ; kr3 13:05 BP 122 / 65; Pulse 64; Resp 16; Pulse Ox 99% on R/A; kr3 14:08 BP 115 / 63; Pulse 62; Resp 16; Pulse Ox 100% on R/A; kr3 11:05 Body Mass Index 40.24 (99.79 kg, 157.48 cm) ll1 MDM: 11:04 Patient medically screened. pm1 11:12 Data reviewed: vital signs. Data interpreted: Pulse oximetry: on room air is 99 %. pm1 Interpretation: normal. 14:19 Counseling: I had a detailed discussion with the patient and/or guardian regarding: the pm1 historical points, exam findings, and any diagnostic results supporting the discharge/admit diagnosis, lab results, radiology results, the need for outpatient follow up, a family practitioner, to return to the emergency department if symptoms worsen or persist or if there are any questions or concerns that arise at home. 14:19 ED course: Based on patient presentation and work-up, appears to be musculoskeletal pm1 injury from moving furniture this weekend. Negative for hernia as per concern of patient and CT with p.o. and IV contrast ruled out any intra-abdominal issues related to possible gastric bypass surgery history. We will send patient home with muscle relaxants for management of her pain. Patient unable to take NSAIDs and she does not want any narcotic medications. 03/01 11:22 Order name: CBC with Diff; Complete Time: 12:05 pm1 03/01 11:22 Order name: CMP; Complete Time: 12:05 pm1 03/01 11:22 Order name: Lipase; Complete Time: 12:05 pm1 03/01 11:22 Order name: CT Abd/Pelvis - PO and IV Contrast; Complete Time: 14:12 pm1 03/01 13:01 Order name: Urine Dipstick-Ancillary; Complete Time: 13:25 EDMS 03/01 13:06 Order name: Urine --Ancillary (enter results) bd 03/01 11:22 Order name: IV Saline Lock; Complete Time: 11:29 pm1 03/01 11:22 Order name: Labs collected and sent; Complete Time: 11:29 pm1 03/01 11:22 Order name: Urine Dipstick-Ancillary (obtain specimen); Complete Time: 13:05 pm1 03/01 11:22 Order name: Urine Test (obtain specimen); Complete Time: 13:05 pm1 Administered Medications: 12:03 Not Given (Duplicate Order): Ondansetron 4 mg PO once kr3 12:15 Drug: morphine 4 mg Route: IVP; Infused Over: 4 mins; Site: left antecubital; kr3 15:15 Follow up: Response: No adverse reaction ll1 12:20 Drug: Zofran (Ondansetron) 4 mg Route: IVP; Site: left antecubital; kr3 15:14 Follow up: Response: No adverse reaction ll1 14:42 CANCELLED (changed routee): Potassium Effervescent Tablet 50 mEq PO once; dissolve in 4 ss ounces of water or juice 14:50 Drug: Potassium Chloride 40 mEq Route: PO; ll1 15:14 Follow up: Response: No adverse reaction ll1 Disposition Summary: 03/01/22 14:20 Discharge Ordered Location: Home pm1 Problem: new pm1 Symptoms: have improved pm1 Condition: Stable pm1 Diagnosis - Abdominal pain, unspecified pm1 - Other muscle spasm pm1 Followup: pm1 - With: Emergency Department - When: As needed - Reason: Worsening of condition Followup: pm1 - With: Private Physician - When: 2 - 3 days - Reason: Recheck today's complaints, Continuance of care, Re-evaluation by your physician Discharge Instructions: - Discharge Summary Sheet pm1 - Abdominal Pain, Adult pm1 - Muscle Cramps and Spasms pm1 - Muscle Strain pm1 Forms: - Medication Reconciliation Form pm1 - Thank You Letter pm1 - Antibiotic Education pm1 - Prescription Opioid Use pm1 - Work release form ll1 Prescriptions: - Cyclobenzaprine 10 mg Oral Tablet - take 1 tablet by ORAL route every 8 hours As needed; 30 tablet; Refills: 0, pm1 Product Selection Permitted Signatures: Dispatcher [employer] EDMS Alexandra Venegas RN RN ss Zion Israel, HENRRY DIRECTOR OF INSTITUTIONAL GIVING pm1 Elke De La Rosa RN RN ll1 Jessica Schwartz RN RN kr3 Corrections: (The following items were deleted from the chart) 14:42 14:19 Potassium Effervescent Tablet 50 mEq PO once; dissolve in 4 ounces of water or ss juice ordered. pm1 14:42 14:33 Potassium Effervescent Tablet 50 mEq PO once; dissolve in 4 ounces of water or ss juice given. kr3 14:42 14:40 Potassium Effervescent Tablet 50 mEq PO once; dissolve in 4 ounces of water or ss juice ordered. ss
--- NOTE | 2022-03-01 14:20 | ER ---
Nurse's Notes [facility] Name: Etelvina Salcedo Age: 41 yrs Sex: Female : 1980 Arrival Date: 03/01/2022 Time: 10:56 Bed Treatment Private MD: Miguel Ángel Ramírez E Diagnosis: Abdominal pain, unspecified;Other muscle spasm Presentation: 03/01 11:05 Chief complaint: Patient states: Ball of pain just below sternum area since Monday. ll1 Its painful, moves, and feels bigger today. Coronavirus screen: Vaccine status: Client denies travel out of the [place] in the last 14 days. At this time, the client does not indicate any symptoms associated with coronavirus-19. Ebola Screen: Patient denies travel to an Ebola-affected area in the 21 days before illness onset. Initial Sepsis Screen: Does the patient meet any 2 criteria? No. Patient's initial sepsis screen is negative. Does the patient have a suspected source of infection? Yes: Acute abdominal pain. Risk Assessment: Do you want to hurt yourself or someone else? Patient reports no desire to harm self or others. Onset of symptoms was February 26, 2022. 11:05 Method Of Arrival: Ambulatory ll1 11:05 Acuity: EARLINE [address] JUDGE: 12:01 LMP N/A - control method kr3 Historical: - Allergies: 11:10 No Known Allergies; ll1 - PMHx: 11:10 diabetes mellitus; Hypokalemia; Low Iron; PCOS; ll1 11:10 Seizure; ll1 - PSHx: 11:10 Cholecystectomy; Gastric Bypass; ll1 - Immunization history:: Client reports receiving the 2nd dose of the Covid vaccine. - Social history:: Smoking status: Patient denies any tobacco usage or history of. Screenin:11 Abuse screen: Denies threats or abuse. Nutritional screening: No deficits noted. kr3 Tuberculosis screening: No symptoms or risk factors identified. Fall Risk None identified. Assessment: 12:01 General: Appears in no apparent distress. uncomfortable, obese, Behavior is calm, kr3 cooperative, appropriate for age. 12:01 Pain: Complains of pain in abdomen Pain currently is 8 out of 10 on a pain scale. kr3 13:05 Reassessment: No changes from previously documented assessment. Patient and/or family kr3 updated on plan of care and expected duration. Pain level reassessed. Patient is alert, oriented x 3, equal unlabored respirations, skin warm/dry/pink. 14:11 Reassessment: No changes from previously documented assessment. Patient and/or family kr3 updated on plan of care and expected duration. Pain level reassessed. Patient is alert, oriented x 3, equal unlabored respirations, skin warm/dry/pink. 14:50 Reassessment: No changes from previously documented assessment. Patient and/or family ll1 updated on plan of care and expected duration. Pain level reassessed. Patient is alert, oriented x 3, equal unlabored respirations, skin warm/dry/pink. Patient states feeling better. Vital Signs: 11:05 BP 141 / 90; Pulse 72; Resp 16; Temp 98.5; Pulse Ox 99% on R/A; Weight 99.79 kg; Height ll1 5 ft. 2 in. (157.48 cm); Pain 8/10; 12:01 BP 112 / 64; Pulse 68; Resp 16; Pulse Ox 99% ; kr3 13:05 BP 122 / 65; Pulse 64; Resp 16; Pulse Ox 99% on R/A; kr3 14:08 BP 115 / 63; Pulse 62; Resp 16; Pulse Ox 100% on R/A; kr3 11:05 Body Mass Index 40.24 (99.79 kg, 157.48 cm) ll1 ED Course: 10:56 Patient arrived in ED. am2 10:56 Miguel Ángel Ramírez MD is Private Physician. am2 11:01 [facility] pm1 11:01 Jeff Cordero MD is Attending Physician. pm1 11:10 Triage completed. ll1 11:11 Arm band placed on Patient placed in an exam room, on a stretcher. ll1 11:19 Jessica Schwartz RN is Primary Nurse. kr3 11:30 Bed in low position. Call light in reach. Side rails up X 1. kr3 11:36 Inserted saline lock: 22 gauge in left antecubital area, using aseptic technique. Blood ll1 collected. 13:48 CT Abd/Pelvis - PO and IV Contrast In Process Unspecified. EDMS 14:50 No provider procedures requiring assistance completed. IV discontinued, bleeding ll1 controlled, No redness/swelling at site. Pressure dressing applied. Administered Medications: 12:03 Not Given (Duplicate Order): Ondansetron 4 mg PO once kr3 12:15 Drug: morphine 4 mg Route: IVP; Infused Over: 4 mins; Site: left antecubital; kr3 15:15 Follow up: Response: No adverse reaction ll1 12:20 Drug: Zofran (Ondansetron) 4 mg Route: IVP; Site: left antecubital; kr3 15:14 Follow up: Response: No adverse reaction ll1 14:42 CANCELLED (changed routee): Potassium Effervescent Tablet 50 mEq PO once; dissolve in 4 ss ounces of water or juice 14:50 Drug: Potassium Chloride 40 mEq Route: PO; ll1 15:14 Follow up: Response: No adverse reaction ll1 Medication: 15:13 VIS not applicable for this client. ll1 Outcome: 14:20 Discharge ordered by MD. pm1 14:50 Patient left the ED. ll1 14:50 Discharged to home ambulatory. ll1 14:50 Condition: stable 14:50 Discharge instructions given to patient, Instructed on discharge instructions, follow up and referral plans. medication usage, Demonstrated understanding of instructions, follow-up care, medications, Prescriptions given X 1. Signatures: Dispatcher [employer] EDMS Alexandra Venegas RN RN ss Zion Israel, HENRRY FARM LOAN INSPECTOR pm1 Christine Vargas am2 Elke De La Rosa RN RN ll1 Jessica Schwartz RN RN kr3 Corrections: (The following items were deleted from the chart) 14:40 14:33 Potassium Effervescent Tablet 50 mEq PO kr3 ss 14:40 14:39 Response: No adverse reaction; Other; cannot tolerate taste of liquid K. Will ss give her tabs of K+ ss
[2022-03-01] MEDS ORDERED: POTASSIUM 25 MEQ EFFERV TAB ONE (14:23)
[2022-03-01] MEDS ORDERED: POTASSIUM CL SA 10 MEQ TAB PO ONE (14:44)
[2022-03-01 15:24] VITALS: TEMP 98.5
[2022-03-01 15:33] VITALS: BP 115/63; O2SAT 100
== END 2022-03-01 14:50 | disposition home or self-care (01) ==
LOC: ER 10:55
DX: R10.11 Right upper quadrant pain (principal); M62.838 Other muscle spasm
CPT/HCPCS: 85025; 36415; 81025; 81003; 83690; 80053; 74177; 96375; 96374; 99284; Q9967; J2405

== ENCOUNTER 2022-05-03 14:32 | Emergency (ER) | payer OTHER ==
--- OUTSIDE RECORDS SUMMARY | 2022-05-03 14:37 | XMS REPORT | Continuity of Care Document ---
:1980 Author Organization [facility] t Address [address] [place] [address] Care Team Providers Name Role Phone RENNY [...] Date Clinician No Known DA Active U 2020-0 [facility] No Known DA Active U 2020-0 [facility] DRUG Active Other-Cmnt 2015- Univ ers E [facility]GR[facility]I 0-20 [facility] 00:00: [place] [address] [facility] Family History Family Member Diagnosis Comments Start Date Stop Date Source Natural daughter [facility] Social History Social Habit Start Date Stop Date Quantity Comments Source History SDOH [facility] Drinks [facility] Alcohol intake 2019-11-15 2019-11-15 [facility]00 non-drinker Hospital (finding) History SDOH 2019-11-15 2019-11-15 1 [facility]00 [facility] Tobacco use and 2019-01-01 2019-01-01 Smokeless tobacco [facility] exposure 00[facility]:00 [facility]:00 non-user Hospital Sex Assigned At [birth year] [facility] Smoking Status Start Date Stop Date Source Never smoked tobacco [facility] Medications Ordered Filled Start Stop Current Ordering Indication Dosage Frequency Signature Comments Components Source Medication Medication Date Date Medication? Clinician (SIG) Name Name ondansetron 2019-0 Yes 4mg Q8H Take 1 Meth kody (ZOFRAN) 4 9-02 tablet (4 st [facility] tablet 00:00: mg total) [facility] 00 by mouth l every 8 (eight) hours as needed for nausea or vomiting. ondansetron 2019-0 Yes 4mg Q8H Take 1 [...] Planned Date Details Comments Source Future Scheduled 2022-05-01 COVID-[address] [facility] Test 14:07:36 (#1) [code = COVID-19 VACCINE (#1)] Future Scheduled 2022-05-01 [facility]atitis C [facility] Test 14:07:36 screening (procedure) [code = 268862611] Future Scheduled 2022-05-01 [facility] Test 14:07:36 malignant neoplasm of cervix (procedure) [code = 418869873] Future Scheduled 2022-05-01 BREAST CANCER [facility] Test 14:07:36 SCREENING [code = BREAST CANCER SCREENING] Future Scheduled 2022-05-01 INFLUENZA VACCINE [facility] Test 14:07:36 [code = INFLUENZA VACCINE] Future Scheduled 2022-03-01 [facility]ITIS B [facility] 10:58:11 VACCINES (1 of 3 - 3-dose series) [code = HEPATITIS B VACCINES (1 of 3 - 3-dose series)] Future Scheduled 2022-03-01 COVID-[address] [facility] Test 10:58:11 (#1) [code = COVID-19 VACCINE (#1)] Future Scheduled 2022-03-01 [facility] 10:58:11 screening (procedure) [code = 842564471] Future Scheduled 2022-03-01 [facility] Test 10:58:11 malignant neoplasm of cervix (procedure) [code = 412356527] Future Scheduled 2022-03-01 [facility]ER [facility] Test 10:58:11 SCREENING [code = BREAST CANCER SCREENING] Future Scheduled 2022-03-01 [facility]ACCINE [facility] Test 10:58:11 [code = INFLUENZA VACCINE] Future Scheduled COVID-[address] [facility] Test (1) [code = COVID-19 VACCINE (1)] Future Scheduled [facility] screening (procedure) [code = 256129727] Future Scheduled [facility] Test malignant neoplasm of cervix (procedure) [code = 788021265] Future Scheduled [facility]ZA [facility]ACCINE [facility] Test [code = INFLUENZA VACCINE] Encounters Start End Encounter Admission Attending Care Care Encounter Source Date/Time Date/Time Type Type Clinicians Facility Department ID 2019-07-23 Inpatient [facility] [id number] [facility] 12:26:00 79 [facility] 2019-06-18 Inpatient [facility] [id number] [facility] 10:06:00 67 [facility] 2020-07-07 2020-07-07 Outpatient Julieth VARGAS [facility] [id number] [facility] 12:40:00 12:50:08 [facility] 2020-06-16 2020-06-16 Outpatient Julieth VARGAS [facility] [id number] [facility] 11:50:00 13:54:27 [facility] Results Test Description Test Time Test Comments [...] NRBC#) 0.00 K/mm3 0.0-0.1 N BASIC METABOLIC [id number] 15:08:00 Test Item Value Reference Range Interpretation [...] code = 8.0 mg/dL 8.5-10.1 L CA) [id number] 15:08:00 Test Item Value Reference Range Interpretation Comments TROPONIN-I (test code = TROPI) <0.015 ng/mL 0-0.045 N BASIC METABOLIC [id number] 14:57:00 Test Item Value Reference Range Interpretation [...] CALCIUM (test code = CA) mg/dL 8.5-10.1 [id number] 14:57:00 Test Item Value Reference Range Interpretation Comments TROPONIN-I (test code = TROPI) ng/mL 0-0.045 CBC W/AUTO [id number] 14:57:00 Test Item Value Reference Range Interpretation [...] BA#) K/mm3 0.0-0.2 - XR CHEST 1 [id number] 13:16:00 FAX: Scott Layne MD [phone] [place]: St: REG Name: KIMBER TORO [facility] : 1980 Age/S: 38/F [address] [facility] Unit #: [id number] Loc: [place] [address] Phys: Scott Layne MD Acct: [id number] Dis Date: Status: REG ER PHONE #: [phone] Exam Date: 07/23/2019 1314 FAX #: [phone] Reason:SOB EXAMS: CPT CODE: [id number] XR CHEST 1 V [id number] REASON FOR EXAM: SOB EXAM ORDER DATE: 07/23/2019 12:56 PM Ordering: Scott Layne MD Attending:Scott Layne MD Location:[facility] PROCEDURE: - XR CHEST 1 V [...] CC: Scott Layne MD Technologist: RT LORI(Julieth) Trnscrd Date/Time/By: 07/23/2019 ([id number]) : By: Monika Orig Print D/T: S: 07/23/2019 (5810) PAGE 1 Signed Report
[2022-05-03 15:46] LABS: SARS-COV-2 RT PCR NEGATIVE (NEGATIVE)
[2022-05-03 15:58] LABS: Urine Blood Trace-intact (Negative); Urine Glucose Negative (Negative); Urine Protein Negative (Negative); Urine Specific Gravity >=1.030 (1.005-1.030)
[2022-05-03 16:10] LABS: Urine Bacteria None Seen /HPF (<20); Urine Crystals Unidentified Few /HPF (None Seen); Urine Mucus 2+ /HPF (None Seen); Urine RBC <5 /HPF (None Seen)
[2022-05-03 16:29] LABS: Urine Specific Gravity/Preg >1.030 (1.005-1.030)
--- NOTE | 2022-05-03 17:22 | ER ---
Nurse's Notes [facility] Name: Etelvina Salcedo Age: 41 yrs Sex: Female : 1980 Arrival Date: 05/03/2022 Time: 14:36 Bed 9 Private MD: Diagnosis: UTI/ Urinary tract infection, site not specified;Acute pharyngitis, unspecified;Cough Presentation: 05/03 14:52 Coronavirus screen: Vaccine status: Patient reports receiving the 2nd dose of the covid ll1 vaccine. Client denies travel out of the [place] in the last 14 days. chills, congestion, cough unrelated to allergies, fatigue, fever, headache, muscle pain, nausea, Client presents with at least one sign or symptom that may indicate coronavirus-19. Standard/surgical mask placed on the client. Ebola Screen: Patient denies travel to an Ebola-affected area in the 21 days before illness onset. Initial Sepsis Screen: Does the patient meet any 2 criteria? No. Patient's initial sepsis screen is negative. Does the patient have a suspected source of infection? Yes: Productive cough/pneumonia. Risk Assessment: Do you want to hurt yourself or someone else? Patient reports no desire to harm self or others. Onset of symptoms was April 29, 2022. 14:52 Method Of Arrival: Ambulatory 1 14:52 Acuity: EARLINE 4 ll1 14:53 Chief complaint: Patient states: Fever, sore throat, body aches, fatigue, SIMS since ll1 04/29/22. Wants to check for possible UTI, took a Azo this morning. Historical: - Allergies: 14:52 No Known Allergies; ll1 - PMHx: 14:52 diabetes mellitus; Hypokalemia; Low Iron; PCOS; Seizure; ll1 - PSHx: 14:52 Cholecystectomy; Gastric Bypass; ll1 - Immunization history:: Client reports receiving the 2nd dose of the Covid vaccine. - Social history:: Smoking status: Patient denies any tobacco usage or history of. Screenin:12 [facility] ED Fall Risk Assessment (Adult) History of falling in the last 3 months, em6 including since admission No falls in past 3 months (0 pts) Confusion or Disorientation No (0 pts) Intoxicated or Sedated No (0 pts) Impaired Gait No (0 pts) Mobility Assist Device Used No (0 pt) Altered Elimination No (0 pt) Score/Fall Risk Level 0 - 2 = Low Risk Oriented to surroundings, Maintained a safe environment, Educated pt \T\ family on fall prevention, incl call for assistance when getting out of bed, Assessed \T\ reinforced patient's understanding of fall precautions, Provided non-skid footwear, Hourly rounding (assess needs \T\ fall precautionary measures) done, Used ambulatory aids as needed (educated on \T\ assisted with), Used gait belt as appropriate. Abuse screen: Denies threats or abuse. Nutritional screening: No deficits noted. Tuberculosis screening: No symptoms or risk factors identified. Assessment: 16:11 General: Appears in no apparent distress. Behavior is cooperative. Pain: Denies pain. em6 Neuro: Level of Consciousness is awake, alert, obeys commands, Oriented to person, place, time, situation, Reports headache frontal area, weakness. Cardiovascular: Reports fatigue, nausea, Heart tones present Patient's skin is warm and dry. Respiratory: Reports cough that is productive, Airway is patent Respiratory effort is even, unlabored, Breath sounds are clear bilaterally. GI: Abdomen is non-distended, Bowel sounds present X 4 quads. Abd is soft and non tender X 4 quads. Reports nausea, vomiting. : No signs and/or symptoms were reported regarding the genitourinary system. EENT: Throat is reddened Reports nasal congestion. Derm: No signs and/or symptoms reported regarding the dermatologic system. Musculoskeletal: Circulation, motion, and sensation intact. Range of motion: intact in all extremities. 17:12 Reassessment: Patient appears in no apparent distress at this time. No changes from em6 previously documented assessment. Patient and/or family updated on plan of care and expected duration. Pain level reassessed. Patient is alert, oriented x 3, equal unlabored respirations, skin warm/dry/pink. Vital Signs: 14:52 BP 142 / 103; Pulse 77; Resp 18; Temp 98.4; Pulse Ox 98% ; Weight 104.33 kg; Height 5 ll1 ft. 2 in. (157.48 cm); Pain 6/10; 16:18 BP 121 / 75; Pulse 74; Resp 18; Pulse Ox 98% on R/A; em6 14:52 Body Mass Index 42.07 (104.33 kg, 157.48 cm) ll1 ED Course: 14:36 Patient arrived in ED. as 14:41 Zion Israel NP is PHCP. pm1 14:41 Barrera Weaver MD is Attending Physician. pm1 14:53 Triage completed. ll1 14:54 Arm band placed on. ll1 14:58 COVID-19/FLU A+B Sent. ll1 14:58 Strep Sent. ll1 16:10 Camille Chicas, RN is Primary Nurse. em6 16:12 Bed in low position. Call light in reach. Side rails up X 1. Pulse ox on. NIBP on. Warm em6 blanket given. 17:31 No provider procedures requiring assistance completed. Patient did not have IV access em6 during this emergency room visit. Administered Medications: No medications were administered Medication: 17:13 VIS not applicable for this client. em6 Outcome: 17:21 Discharge ordered by . pm1 17:31 Discharged to home ambulatory. em6 17:31 Condition: stable 17:31 Discharge instructions given to patient, Instructed on discharge instructions, follow up and referral plans. medication usage, Demonstrated understanding of instructions, follow-up care, medications, Prescriptions given X 2. 17:31 Patient left the ED. em6 Signatures: Kendy Chicas Patrick, NP CERTIFIED MEDICAL ASSISTANT pm1 Elke De La Rosa RN RN ll1 Camille Chicas RN RN em6
--- NOTE | 2022-05-03 17:22 | EDPHYS ---
Physician Documentation [facility] Name: Etelvina Salcedo Age: 41 yrs Sex: Female : 1980 Arrival Date: 05/03/2022 Time: 14:36 Bed 9 Private MD: LENNOX Physician Barrera Weaver HPI: 05/03 14:50 This 41 yrs old Female presents to ER via Ambulatory with complaints of Fever, pm1 Sore Throat, body aches. 14:50 The patient presents with sore throat. The patient describes throat pain as raw, pm1 scratchy. Onset: The symptoms/episode began/occurred 4 day(s) ago. Severity of symptoms: in the emergency department the symptoms are unchanged. Modifying factors: The symptoms are alleviated by nothing, Patient's oral intake status: good The patient has had contact with sick significant other. Associated signs and symptoms: Pertinent positives: cough, Pertinent negatives diarrhea, earache, nausea, vomiting. The patient has not recently seen a physician. Patient also reports that she has some urinary tract symptoms. Patient reports burning with urination and small quantities when urinating. Feels like prior UTIs. Patient started taking azoo for her symptoms. Historical: - Allergies: 14:52 No Known Allergies; ll1 - PMHx: 14:52 diabetes mellitus; Hypokalemia; Low Iron; PCOS; Seizure; ll1 - PSHx: 14:52 Cholecystectomy; Gastric Bypass; ll1 - Immunization history:: Client reports receiving the 2nd dose of the Covid vaccine. - Social history:: Smoking status: Patient denies any tobacco usage or history of. ROS: 14:50 Cardiovascular: Negative for chest pain, palpitations, and edema, Respiratory: Negative pm1 for shortness of breath, cough, wheezing, and pleuritic chest pain, Abdomen/GI: Negative for abdominal pain, nausea, vomiting, diarrhea, and constipation, Back: Negative for injury and pain. 14:50 MS/Extremity: Negative for injury and deformity, Skin: Negative for injury, rash, and discoloration, Neuro: Negative for headache, weakness, numbness, tingling, and seizure. 14:50 Constitutional: Positive for body aches, fever, Negative for poor PO intake. 14:50 ENT: Positive for sore throat, Negative for ear pain. 14:50 : Positive for urinary symptoms, small amounts, burning with urination. 14:50 All other systems are negative. Exam: 14:50 Constitutional: This is a well developed, well nourished patient who is awake, alert, pm1 and in no acute distress. Head/Face: Normocephalic, atraumatic. 14:50 Back: No spinal tenderness. No costovertebral tenderness. Full range of motion. Skin: Warm, dry with normal turgor. Normal color with no rashes, no lesions, and no evidence of cellulitis. MS/ Extremity: Pulses equal, no cyanosis. Neurovascular intact. Full, normal range of motion. 14:50 Eyes: Exam is negative for acute changes, Periorbital structures: no acute changes, Conjunctiva: no acute changes, no injection. 14:50 ENT: Mouth: no acute changes, Lips: normal, moist, Oral mucosa: normal, pink and intact, moist, Posterior pharynx: Tonsils: bilaterally enlarged, with erythema, no exudate, no ulcerations, erythema, that is mild, peritonsillar mass, is not appreciated. 14:50 Cardiovascular: Exam negative for acute changes, Rate: normal, Rhythm: regular, Pulses: no pulse deficits are appreciated. 14:50 Respiratory: Exam negative for acute changes, respiratory distress, shortness of breath. 14:50 Abdomen/GI: Inspection: obese Palpation: abdomen is soft and non-tender, in all quadrants. 14:50 Neuro: Exam negative for acute changes, Orientation: is normal, Mentation: is normal, Motor: moves all fours. Vital Signs: 14:52 BP 142 / 103; Pulse 77; Resp 18; Temp 98.4; Pulse Ox 98% ; Weight 104.33 kg; Height 5 ll1 ft. 2 in. (157.48 cm); Pain 6/10; 16:18 BP 121 / 75; Pulse 74; Resp 18; Pulse Ox 98% on R/A; em6 14:52 Body Mass Index 42.07 (104.33 kg, 157.48 cm) ll1 MDM: 14:42 Patient medically screened. pm1 17:21 Data reviewed: vital signs. Data interpreted: Pulse oximetry: on room air is 98 %. pm1 Interpretation: normal. Counseling: I had a detailed discussion with the patient and/or guardian regarding: the historical points, exam findings, and any diagnostic results supporting the discharge/admit diagnosis, lab results, the need for outpatient follow up, to return to the emergency department if symptoms worsen or persist or if there are any questions or concerns that arise at home. 05/03 14:42 Order name: Strep; Complete Time: 15:22 pm1 05/03 14:42 Order name: COVID-19/FLU A+B; Complete Time: 15:56 pm1 05/03 14:49 Order name: Urine Microscopic Only; Complete Time: 16:41 pm1 05/03 15:21 Order name: Throat Culture EDPR 05/03 15:58 Order name: Urine Dipstick-Ancillary; Complete Time: 16:07 EDPR 05/03 16:18 Order name: Urine --Ancillary (enter results); Complete Time: 16:41 kj1 05/03 14:49 Order name: Urine Dipstick-Ancillary (obtain specimen); Complete Time: 16:05 pm1 05/03 14:49 Order name: Urine Test (obtain specimen); Complete Time: 16:05 pm1 Administered Medications: No medications were administered Disposition Summary: 05/03/22 17:21 Discharge Ordered Location: Home pm1 Problem: new pm1 Symptoms: have improved pm1 Condition: Stable pm1 Diagnosis - UTI/ Urinary tract infection, site not specified pm1 - Acute pharyngitis, unspecified pm1 - Cough pm1 Followup: pm1 - With: Emergency Department - When: As needed - Reason: Worsening of condition Followup: pm1 - With: Private Physician - When: 2 - 3 days - Reason: Recheck today's complaints, Continuance of care, Re-evaluation by your physician Discharge Instructions: - Discharge Summary Sheet pm1 - Sore Throat pm1 - Urinary Tract Infection, Adult pm1 - Cough, Adult pm1 Forms: - Medication Reconciliation Form pm1 - Thank You Letter pm1 - Antibiotic Education pm1 - Prescription Opioid Use pm1 - Work release form em6 Prescriptions: - Bactrim DS 800-160 mg Oral Tablet - take 1 tablet by ORAL route every 12 hours for 10 days; 20 tablet; Refills: 0, pm1 Product Selection Permitted - Guaifenesin AC 10-100 mg/5 mL Oral Liquid - take 10 milliliters by ORAL route every 4 hours As needed; 240 milliliter; pm1 Refills: 0, Product Selection Permitted Signatures: Dispatcher [employer] Zion Jeffrey, BANKING TEACHER BANKING TEACHER pm1 Elke De La Rosa, RN RN ll1 Camille Chicas, RN RN em6
[2022-05-03 17:54] VITALS: TEMP 98.4; O2SAT 98
[2022-05-03 17:55] VITALS: BP 121/75
== END 2022-05-03 17:31 | disposition home or self-care (01) ==
LOC: ER 14:32
DX: N39.0 Urinary tract infection, site not specified (principal); R05.9 Cough, unspecified; J02.9 Acute pharyngitis, unspecified; Z20.822 Contact with and (suspected) exposure to COVID-19
CPT/HCPCS: 87070; 81025; 87081; 0240U; 81003; 81015; 99283

== ENCOUNTER 2023-03-03 20:16 | Emergency (ER) | payer OTHER ==
--- OUTSIDE RECORDS SUMMARY | 2023-03-03 20:21 | XMS REPORT | Continuity of Care Document ---
:[address] [facility] t Address [address] [place] [address]. [address] [place] [address] Care Team Providers Name Role Phone RAMÍREZ RENNY Portillo Primary Care Physician Unavailable JIMI SALINAS Attending Clinician Unavailable ROSELINE BORJAS Attending Clinician Unavailable LAB90 Attending Clinician Unavailable Harriet Corona DO Attending Clinician HARRIET CORONA Attending Clinician Unavailable MICHELLE ASCENCIO Attending Clinician Unavailable LIZBET VARGAS Attending Clinician Unavailable Physician, No Primary or Family Admitting Clinician UnavailHARRIET Carranza Admitting Clinician Unavailable Payers Payer Name Policy Type Policy Number Effective Date Expiration Date Zeus kimberly [facility] [facility] 9 [id number] 2023 00:00:00 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 [address] [facility] - [id number] 2022 00:00:00 OUT OF STATE Problems Condition Condition Condition Status Onset Resolution Last Treating Co mments Source Name Details Category Date Date Treatment Clinician Date DM type 1 DM type 1 Disease Active 2022-05 Jt sey (diabetes (diabetes 0-16 Seyb old mellitus, mellitus, 00:00: - type 1) type 1) 00 Externa (multi (multi l HCC) HCC) Obesity Obesity Disease Active 2022-05 Dana 0-16 Seybold 00:00: - 00 Externa l Iron Iron Disease Active 2022-05 Dana deficiency deficiency 0-16 Se ybold anemia anemia 00:00: - 00 Externa l Toxic Toxic Disease Active Methodi metabolic metabolic 8-27 st encephalop encephalop 00:00: Ho spita athy athy 00 l Abnormal Abnormal Disease Active 2015-05 Unive rs uterine uterine - ity of bleeding bleeding 00:00: [place] 00 Medical Branch Morbid Morbid Disease Active 2015-05 Univers obesity obesity 05-08 ity of with BMI with BMI 00:00: [place] of of 00 Medical 60.0-69.9, 60.0-69.9, Br anch adult adult Abnormal Abnormal Disease Active 2015-05 Overview: Un valeri vaginal vaginal 0-20 Formattin ity o f bleeding bleeding 00:00: g of this [place] as 00 note Medical might be Branch different from the original. Per Dr. Ramírez's records Polycystic Polycystic Disease Active 2015-05 Overview : Univers ovarian ovarian 0-20 Formattin ity o f disease disease 00:00: g of this [place] 00 note Medical might be Branch different from the original. Per Dr. Ramírez's records Menorrhagi Menorrhagi Disease Active 2015-05 Overview : Univers a with a with 0-20 Formattin ity of irregular irregular 00:00: g of this [place] cycle cycle 00 note Medical might be Branch different from the original. Per Dr. Ramírez's records Anemia, Anemia, Disease Active 2015-05 Overview: Univ ers unspecifie unspecifie 0-20 Formattin ity of d d 00:00: g of this [place] 00 note Medical might be Branch different from the original. Per Dr. Ramírez's records Anxiety Anxiety Disease Active 2015-05 Overview: Univ ers disorder disorder 0-20 Formattin ity of 00:00: g of this [place] 00 note Medical might be Branch different from the original. Per Dr. Ramírez's records Unspecifie Unspecifie Disease Active 2015-05 Overview : Univers d d 0-20 Formattin ity of hypothyroi hypothyroi 00:00: g of this [place] dism dism 00 note Medical might be Branch different from the original. Per Dr. Ramírez's records Lipoma of Lipoma of Disease Active 2015-05 Overview: Univers head head 0-20 Formattin ity of 00:00: g of this [place] 00 note Medical might be Branch different from the original. Per Dr. Ramírez's records Dysmenorrh Dysmenorrh Disease Active 2015-05 Overview : Univers ea ea 0-20 Formattin ity of 00:00: g of this [place] 00 note Medical might be Branch different from the original. Per Dr. Ramírez's records Acanthosis Acanthosis Disease Active 2015-05 Overview : Univers nigricans nigricans 0-20 Formattin i ty of 00:00: g of this note Medical might be Branch different from the original. Per Dr. Ramírez's records Sebaceous Sebaceous Disease Active 2015-05 Overview: Univers cyst cyst 0-20 Formattin ity of 00:00: g of this note Medical might be Branch different from the original. Per Dr. Ramírez's records Non-alcoho Non-alcoho Disease Active 2015-05 Overview : Univers lic fatty lic fatty 0-20 Formattin i ty of liver liver 00:00: g of this [place] disease disease 00 note Medical might be Branch different from the original. Per Dr. Ramírez's records Allergies, Adverse Reactions, Alerts Allergy Allergy Status Severity Reaction(s) Onset Inactive Treating Comm ents Source Name Type Date Date Clinician Iodine Propensi Active Itching 0 Dana ty to 3-07 Seybold adverse 00:00: - reaction 00 Externa s l IODINE DRUG Active ITCHING Univers INGREDI 3-07 ity of 00:00: Medical Branch No Known DA [facility] No Known DA Active U 2020[facility]0 [facility] TRAZODON DRUG Active Other-Cmnt 2015-05 Univ ers E INGREDI 0-20 ity of 00:00: Medical Branch Trazodon Propensi Active Other 2015-05 Lingering Jt sey e ty to 0-20 depressio Seybold adverse 00:00: n - reaction 00 Externa s l Family History Family Member Diagnosis Comments Start Date Stop Date Source Natural daughter Seizures [facility] Social History Social Habit Start Date Stop Date Quantity Comments Source Sexual orientation [facility] History SDOH Muslim Alcohol Std Drinks Hospit al History SDOH Muslim Alcohol Binge Hospital Alcohol Comment 2023-02-20 2023-02-20 occasionally Dana Seybold - 00:00:00 00:00:00 External Tobacco use and 2023-02-20 2023-02-20 Smokeless tobacco Ke warren Seybold - exposure 00:00:00 00:00:00 non-user External Education 2023-02-20 2023-02-20 16 Dana Seybold - 00:00:00 00:00:00 External Exposure to 2022-07-02 2022-07-12 Not sure University SARS-CoV-2 (event) 00:00:00 09:46:00 [facility] [place] [facility] Alcohol intake 2019-11-15 2019-11-15 Lifetime Muslim 00:00:00 00:00:00 non-drinker Hospital (finding) History of Social 2019-11-15 2019-11-[address] function 00:00:00 00:00:00 Hospital History SDOH 2019-11-15 2019-11-15 1 Muslim Alcohol Frequency 00:00:00 00:00:00 Hospita l Sex Assigned At [birth year] Muslim 00:00:00 00:00:00 Hospital Smoking Status Start Date Stop Date Source Never smoked tobacco Dana Seyb old - External Medications Ordered Filled Start Stop Current Ordering Indication Dosage Frequency Signature Comments Components Source Medication Medication Date Date Medication? Clinician (SIG) Name Name Insulin 2022-05- No Inject Dana Regular 0-16 10-16 into the Seybold Human 15:58: 00:00 skin once. - (NovoLIN R) 01 :00 Externa 100 UNIT/ML l injection Solution Levemir 2022-05- No Inject Dana FlexPen 100 0-16 10-16 into the Sey bold UNIT/ML 15:41: 00:00 skin. - subcutaneou 37 :00 Externa s Solution l Pen-injecto r Iron-Vitami 2022-05 Yes Take by Jt to n C (Iron 0-16 mouth. Seybold 100/C) 15:32: - 100-250 MG 22 Externa oral Tablet l Zinc 2022-05 Yes 220mg Take 1 [place] Sulfate 0-16 capsule Seybold (Zinc-220) 15:32: (220 mg - 220 (50 Zn) 22 total) by Ibis morrella MG oral mouth l Capsule daily. methylpredn 2022- No 125mg 125 mg, U nivers isolone sod 07-12 Intravenou i ty of succ 20:00: 19:11 s, ONCE, 1 [place] (SOLU-MEDRO 00 :00 dose, On Medi shane L) Mon07/12/22 Branch injection at 1400, 2 125 mg mL iopamidol 2022- No [id number] 78mL 78 mL, U nivers (ISOVUE 07-12 Intravenou ity o f 370-500 mL) 19:30: 19:30 s, ONCE, 1 [place] injection 00 :00 dose, On Medica l 78 mL Mon07/12/22 Branch at 1330, Routine diphenhydrA 2022- No 50mg 50 mg, Uni vers MINE 07-12 Slow IV ity of (BENADRYL) 19:15: 19:11 Push, [place] injection 00 :00 ONCE, 1 Medical 50 mg dose, On Branch e 07/12/22 at 1315, STAT ondansetron 2022- No 4mg 4 mg, Slow Univers (ZOFRAN 07-12 IV Push, ity of (PF)) 17:30: 17:32 ONCE, 1 [place] injection 4 00 :00 dose, On Medi shane mg Mon07/12/22 Branch at 1130, HAO dicyclomine 2022-0 Yes [id number] 20mg Take 1 Univers 20 mg 07-12 tablet by ity of tablet 00:00: mouth 4 00 (four) Medical times Branch daily as needed for Abdominal pain. ondansetron 2019-0 Yes 4mg Q8H Take 1 [...] as needed for nausea or vomiting. ondansetron Yes 4mg Q8H Take 1 Meth kody (ZOFRAN) 4 9-02 tablet (4 st MG tablet 00:00: mg total) Hos shannon 00 by mouth l every 8 (eight) hours as needed for nausea or vomiting. POTASSIUM Yes Take by Unive rs CHLORIDE 5-16 mouth. ity of (KLOR-CON 10:37: [place] ORAL) 46 Medical Branch IRON, Yes Take by Univers FERROUS 5-16 mouth. ity of SULFATE, 10:37: [place] ORAL 15 Medical Branch ERGOCALCIFE Yes Take by Uni vers ROL, 5-16 mouth. ity of VITAMIN D2, 10:37: [place] (VITAMIN D 15 Medical ORAL) Branch MULTIVIT Yes Take by Univer s WITH 5-16 mouth. ity of IRON-MINERA 10:37: [place] LS 15 Medical (MULTI-HENNY Branch MINS WITH IRON ORAL) acetaminoph Yes [id number] 05/09 - Univers en-codeine 4-15 tab Every ity of 300-30 mg 00:00: 4hrs as [place] tablet 00 needed for Medical pain or Branch cough requiring narcotic furosemide Yes TK 1 T PO Un valeri (LASIX) 20 9-26 QAM ity of mg tablet 00:00: [place] 00 Medical Branch zolpidem Yes TAKE 1 Univers (AMBIEN) 5 9-26 TABLET BY ity of mg tablet 00:00: MOUTH [place] 00 EVERY Medical NIGHT AT Branch BEDTIME Vital Signs Vital Name Observation Time Observation Value Comments Source Systolic blood 2023-02-20 20:25:00 130 mm[Hg] Dana Garrison - pressure External Diastolic blood 2023-02-20 20:25:00 74 mm[Hg] Jax Guadalupeold - pressure External Heart rate 2023-02-20 20:25:00 91 /min Dana Schulz eybold - External Body temperature 2023-02-20 20:25:00 36.61 [place] Shwetha ey Seybold - External Respiratory rate 2023-02-20 20:25:00 15 /min Shwetha Garrison - External Body height 2023-02-20 20:25:00 157.5 cm Dana herndon - External Body weight 2023-02-20 20:25:00 117.482 kg Dana herndon - External BMI 2023-02-20 20:25:00 47.37 kg/m2 Dana herndon - External Systolic blood 2022-07-12 19:30:00 137 mm[Hg] Univer sity of [facility] Diastolic blood 2022-07-12 19:30:00 92 [facility]Hg[facility] 2022-07-12 19:30:00 70 /min [facility] Respiratory rate 2022-07-12 19:30:00 20 /min [facility] Oxygen saturation in 2022-07-12 19:30:00 100 /min [facility] blood by [facility] Pulse oximetry Branch Body temperature 2022-07-12 15:47:00 37 [place] [facility] Body height 2022-07-12 15:47:00 157.5 cm [facility] Body weight 2022-07-12 15:47:00 104.327 kg [facility] BMI 2022-07-12 15:47:00 42.07 kg/m2 [facility] Procedures Procedure Date / Time Performed Performing Clinician Sour e CT ABDOMEN PELVIS W 2022-07-12 18:38:46 Harriet Corona [facility] CONTRAST [facility] BASIC METABOLIC PANEL 2022-07-12 17:05:00 aHrriet Corona [facility] (NA, K, CL, CO2, Medical Branch GLUCOSE, BUN, CREATININE, CA) CBC WITH DIFF 2022-07-12 17:05:00 Harriet Corona [place] [facility] [place] [facility] ASSIGNMENT OF BENEFITS 2022-07-12 16:26:07 Doctor Unassigned, No [facility] CONSENT/REFUSAL FOR 2022-07-12 15:36:35 Doctor Unassigned, No [facility] DIAGNOSIS AND Name Medical Branch TREATMENT Plan of Care Planned Activity Planned Date Details Comments Source Future Scheduled 2023-02-18 [facility] 08:04:57 (#1) [code = COVID-19 VACCINE (#1)] Future Scheduled 2023-02-18 [facility] for [facility] Test 08:04:57 malignant neoplasm of cervix (procedure) [code = 142505384] Future Scheduled 2023-02-18 BREAST CANCER [facility] Test 08:04:57 SCREENING [code = BREAST CANCER SCREENING] Future Scheduled 2023-02-18 INFLUENZA VACCINE Method [facility] Test 08:04:57 (#1) [code = INFLUENZA VACCINE (#1)] Future Scheduled 2023-02-18 RSV VACCINES > 60 [facility] Test 08:04:57 YR (1 - 1-dose 60+ series) [code = RSV VACCINES > 60 YR (1 - 1-dose 60+ series)] Future Scheduled 2022-05-01 [facility] 14:07:36 (#1) [code = COVID-19 VACCINE (#1)] Future Scheduled 2022-05-01 Hepatitis C [facility] Test 14:07:36 screening (procedure) [code = 752369841] Future Scheduled 2022-05-01 [facility] for [facility] Test 14:07:36 malignant neoplasm of cervix (procedure) [code = 597405469] Future Scheduled 2022-05-01 BREAST CANCER [facility] Test 14:07:36 SCREENING [code = BREAST CANCER SCREENING] Future Scheduled 2022-05-01 INFLUENZA VACCINE Method [facility] Test 14:07:36 [code = INFLUENZA VACCINE] Future Scheduled 2022-03-01 HEPATITIS B [facility] Test 10:58:11 VACCINES (1 of 3 - 3-dose series) [code = HEPATITIS B VACCINES (1 of 3 - 3-dose series)] Future Scheduled 2022-03-01 [facility] 10:58:11 (#1) [code = COVID-19 VACCINE (#1)] Future Scheduled 2022-03-01 [facility] Test 10:58:11 screening (procedure) [code = 336769637] Future Scheduled 2022-03-01 [facility] for [facility] Test 10:58:11 malignant neoplasm of cervix (procedure) [code = 625551918] Future Scheduled 2022-03-01 BREAST CANCER [facility] Test 10:58:11 SCREENING [code = BREAST CANCER SCREENING] Future Scheduled 2022-03-01 INFLUENZA VACCINE [facility] Test 10:58:11 [code = INFLUENZA VACCINE] Future Scheduled COVID-[address] [facility] Test (1) [code = COVID-19 VACCINE (1)] Future Scheduled [facility] Test screening (procedure) [code = 571751298] Future Scheduled [facility]ening for [facility] Test malignant neoplasm of cervix (procedure) [code = 093043373] Future Scheduled INFLUENZA VACCINE [facility] Test [code = INFLUENZA VACCINE] Encounters Start End Encounter Admission Attending Care Care Encounter Source Date/Time Date/Time Type Type Clinicians Facility Department ID 2019-07-23 Inpatient [facility] [id number] [facility] 12:26:00 79 [facility] 2019-06-18 Inpatient [facility] [id number] [facility] 10:06:00 67 [facility] 2023-03-24 2023-03-24 Outpatient DANA SALINAS [id number] Dana 15:30:00 15:30:00 ZISHAN Seybol d 2023-03-02 2023-03-02 Outpatient PREZASDANA [id number] Dana 00:00:00 00:00:00 ROSELINE Seybol d 2023-02-28 2023-02-28 Outpatient PREZADANA Schulz [id number] Dana 00:00:00 00:00:00 ROSELINE Seybol d 2023-02-26 2023-02-26 Outpatient PREZADANA Schulz [id number] Dana 00:00:00 00:00:00 ROSELINE Seybol d 2023-02-24 2023-02-24 Outpatient PREZADANA Schulz [id number] Dana 00:00:00 00:00:00 ROSELINE Seybol d 2023-02-24 2023-02-24 Outpatient PREZADANA Schulz [id number] Dana 00:00:00 00:00:00 ROSELINE Seybol d 2023-02-23 2023-02-23 Outpatient PREZASDANA [id number] Dana 00:00:00 00:00:00 ROSELINE Seybol d 2023-02-22 2023-02-22 Outpatient LAB90 DANA FAJARDO [id number] Dana 12:35:00 12:35:00 Seybol d 2023-02-20 2023-02-20 Outpatient DANA BORJAS [id number] Dana 15:30:00 15:30:00 ROSELINE Seybol d 2022-07-12 2022-07-[address] [facility] [id number] Univers 09:48:00 13:41:00 Harriet BARROSO [id number] i [facility] [id number] [facility] [id number] [place] [address] Branch 2022-07-12 2022-07-[address] [facility] ERT [id number] Univers 09:48:00 13:41:[address] [facility] 2022-05-31 2022-05-31 Outpatient Julieth [facility]ENCIO [facility] [id number] Univers 14:30:00 14:30:[address] [facility] 2020-07-07 2020-07-07 [facility] [id number] Univers 12:40:00 12:50:[address] [facility] 2020-06-16 2020-06-16 [facility] [id number] Univers 11:50:00 13:54:27 [facility] Results Test Description Test Time Test Comments Results Result Comments Source BASIC METABOLIC PANEL (NA, K, CL, CO2, GLUCOSE, BUN, 2022-07 17:49:14 CREATININE, CA) Test Item Value Reference Range Interpretation Comme nts NA (test code = 9957683733) 137 mmol/L 135-145 K (test code = 9951076543) 4.6 mmol/L 3.5-5.0 CL (test code = 0589004355) 108 mmol/L 98-108 CO2 TOTAL (test code = 0833742760) 22 mmol/L 23-31 L AGAP (test code = 9991848549) 7 2-16 BUN (test code = 8323647239) 18 mg/dL 7-23 GLUCOSE (test code = 9065411586) 115 mg/dL 70-110 H CREATININE (test code = 0.48 mg/dL 0.50-1.04 L 8098800310) CALCIUM (test code = 5308570454) 7.5 mg/dL 8.6-10.6 L eGFR (test code = 8362666652) 141.8 mL/min/1.73m2 DESTINI (test code = DESTINI) Association of Glomerular Filtration Rate (GFR) and Staging of Kidney Disease* + +-------- + ------+| GFR (mL/min/1.73 m2) ?| With Kidney Damage ?| ?Without Kidney Damage+ +-- + +| ?>90 ?| ?Stage one ?| ? Normal ?+ +------- + -------+| ?60-89 ?| ?Stage two ?| ? Decreased GFR ? + +-------- + ------+| ?30-59 ?| ?Stage three ?| ? Stage three ? + +-------- + ------+| ?15-29 ?| ?Stage four ? | ? Stage four ?+ +------- + -------+| ?<15 (or dialysis) ? ?| ?Stage five ? | ? Stage five ?+ +------- + -------+ *Each stage assumes the associated GFR level has been in effect for at least three months. ?Stages 1 to 5, with or without kidney disease, indicate chronic kidney disease. Notes: Determination of stages one and two (with eGFR >59mL/min/1.73 m2) requires estimation of kidney damage for at least three months as defined by structural or functional abnormalities of the kidney, manifested by either:Pathological abnormalities or Markers of kidney damage (including abnormalities in the composition of the blood or urine or abnormalities in imaging tests). Lab Interpretation (test code = Abnormal 77957-0) [facility] WITH [id number] 17:32:32 Test Item Value Reference Range Interpretation Comments WBC (test code = 10.75 See_Comment [Automated 3886-2) message] The sy stem which generated this result transmitted reference range : 4.30 - 11.10 10*3/?L. The reference range was not used to interpret this result as normal/abnormal . RBC (test code = 4.42 See_Comment [Automated 789-8) message] The sy stem which generated this result transmitted reference range : 3.93 - 5.25 10*6/?L. The reference range was not used to interpret this result as normal/abnormal . HGB (test code = 13.5 g/dL 11.6-15.0 718-7) HCT (test code = 40.0 % 35.7-45.2 4544-3) MCV (test code = 90.5 fL 80.6-95.5 787-2) MCH (test code = 30.5 pg 25.9-32.8 785-6) MCHC (test code = 33.8 g/dL 31.6-35.1 786-4) RDW-SD (test code = 39.8 fL 39.0-49.9 21900-1) RDW-CV (test code = 12.1 % 12.0-15.5 788-0) PLT (test code = 233 See_Comment [Automated 777-3) message] The sy stem which generated this result transmitted reference range : 166 - 358 10*3/ ?L. The reference r melchor was not used to interpret this result as normal/abnormal . MPV (test code = 10.7 fL 9.5-12.9 54699-8) IPF % (test code = 4.8 % 1.3-7.7 Platelet count 5982275179) measured by fluorescence method. NRBC/100 WBC (test 0.0 See_Comment [Automat ed code = 9603686120) message] The system which generated this result transmitted reference range : 0.0 - 10.0 /100 WBCs. The refer ence range was not u sed to interpret th is result as normal/abnormal . NRBC x10^3 (test code See_Comment [Auto mated = 7275566124) message] The s ystem which generated this result transmitted reference range : 10*3/?L. The reference range was not used to interpret this result as normal/abnormal . GRAN MAT (NEUT) % 66.4 % (test code = 770-8) IMM GRAN % (test code 0.50 % = 2821197977) LYMPH % (test code = 23.2 % 736-9) MONO % (test code = 7.6 % 5905-5) EOS % (test code = 2.0 % 713-8) BASO % (test code = 0.3 % 706-2) GRAN MAT x10^3(ANC) 7.15 10*3/uL 1.88-7.09 H (test code = 5040635974) IMM GRAN x10^3 (test 0.05 10*3/uL 0.00-0.06 code = 1620127693) LYMPH x10^3 (test code 2.49 10*3/uL 1.32-3.29 = 731-0) MONO x10^3 (test code 0.82 10*3/uL 0.33-0.92 = 742-7) EOS x10^3 (test code = 0.21 10*3/uL 0.03-0.39 711-2) BASO x10^3 (test code 0.03 10*3/uL 0.01-0.07 = 704-7) Lab Interpretation Abnormal (test code = 46379-1) [facility] W/AUTO [id number] 15:11:00 Test Item Value Reference Range Interpretation Comments WHITE BLOOD CELL (test code = 8.1 K/mm3 4.5-12.5 N WBC) RED BLOOD CELL (test code = 4.19 mill/mm3 3.7-5.2 N RBC) HEMOGLOBIN (test code = HGB) 12.9 gram/dL 11.5-15.5 N HEMATOCRIT (test code = HCT) 39.9 % 36.0-46.0 N MEAN CELL VOLUME (test code = 95.2 fL 80-98 N MCV) MEAN CELL HGB (test code = MCH) 30.8 picogram 27.0-33.0 N MEAN CELL HGB CONCETRATION 32.3 gram/dL 33.0-36.0 L (test code = MCHC) RED CELL DISTRIBUTION WIDTH 12.8 % 11.6-16.2 N (test code = RDW) RED CELL DISTRIBUTION WIDTH SD 44.1 fL 37.0-51.0 N (test code = RDW-SD) PLATELET COUNT (test code = 246 K/mm3 150-450 N PLT) MEAN PLATELET VOLUME (test code 9.8 fL 6.7-11.0 N = MPV) NEUTROPHIL % (test code = NT%) 49.2 % 39.0-69.0 N IMMATURE GRANULOCYTE % (test 0.2 % 0.0-5.0 N code = IG%) LYMPHOCYTE % (test code = LY%) 41.7 % 25.0-55.0 N MONOCYTE % (test code = MO%) 7.3 % 0.0-10.0 N EOSINOPHIL % (test code = EO%) 1.4 % 0.0-5.0 N BASOPHIL % (test code = BA%) 0.2 % 0.0-1.0 N NUCLEATED RBC % (test code = 0.0 % 0-0 N NRBC%) NEUTROPHIL # (test code = NT#) 3.99 K/mm3 1.8-7.7 N IMMATURE GRANULOCYTE # (test 0.02 x10 3/uL 0-0.03 N code = IG#) LYMPHOCYTE # (test code = LY#) 3.39 K/mm3 1.0-5.0 N MONOCYTE # (test code = MO#) 0.59 K/mm3 0-0.8 N EOSINOPHIL # (test code = EO#) 0.11 K/mm3 0.0-0.5 N BASOPHIL # (test code = BA#) 0.02 K/mm3 0.0-0.2 N NUCLEATED RBC # (test code = 0.00 K/mm3 0.0-0.1 N NRBC#) BASIC METABOLIC [id number] 15:08:00 Test Item Value Reference Range Interpretation [...] code = 8.0 mg/dL 8.5-10.1 L CA) [id number] 15:08:00 Test Item Value Reference Range Interpretation Comments TROPONIN-I (test code = TROPI) <0.015 ng/mL 0-0.045 N BASIC METABOLIC [id number] 14:57:00 Test Item Value Reference Range Interpretation [...] CALCIUM (test code = CA) mg/dL 8.5-10.1 [id number] 14:57:00 Test Item Value Reference Range Interpretation Comments TROPONIN-I (test code = TROPI) ng/mL 0-0.045 CBC W/AUTO [id number] 14:57:00 Test Item Value Reference Range Interpretation [...] BA#) K/mm3 0.0-0.2 - XR CHEST 1 [id number] 13:16:00 FAX: Scott Layne MD [phone] [place]: St: REG Name: KIMBER TORO [facility] : 1980 Age/S: 38/F [address] Unit #: [id number] Loc: [place] [address] Phys: Scott Layne MD Acct: [id number] Dis Date: Status: REG ER PHONE #: [phone] Exam Date: 07/23/2019 1314 FAX #: [phone] Reason: SOB EXAMS: CPT CODE: [id number] XR CHEST 1 V 00256 REASON FOR EXAM: SOB EXAM ORDER DATE: 07/23/2019 12:56 PM Ordering: Scott Layne MD Attending:Scott Layne MD Location:[facility] PROCEDURE: - XR CHEST 1 V COMPARISON: [...] MD Technologist: RT LORI(Julieth) Trnscrd Date/Time/By: 07/23/2019 ([id number]) : By: MarthaL Orig Print D/T: S: 07/23/2019 (6309) PAGE 1 Signed Report"
[2023-03-03] MEDS ORDERED: TRAMADOL HCL 50 MG TAB ONE (21:34)
--- NOTE | 2023-03-03 21:39 | RAD REPORT ---
EXAM DESCRIPTION: RAD - Forearm Right - 03/03/2023 9:18 pm CLINICAL HISTORY: Right arm pain FINDINGS: No fracture is seen.
--- NOTE | 2023-03-03 21:44 | EDPHYS ---
Physician Documentation [facility] Name: Etelvina Salcedo Age: 42 yrs Sex: Female : 1980 Arrival Date: 03/03/2023 Time: 20:16 Bed 11 Private MD: ED Physician Aamir Harrington HPI: 03/03 20:56 This 42 yrs old Female presents to ER via Ambulatory with complaints of Arm rn Injury. 20:56 The patient or guardian complains of decreased range of motion, injury, pain. The rn complaints affect the right wrist. Onset: The symptoms/episode began/occurred today. Modifying factors: The symptoms are alleviated by nothing. the symptoms are aggravated by movement. Severity of symptoms: At their worst the symptoms were moderate, in the emergency department the symptoms are unchanged. The patient has not experienced similar symptoms in the past. Patient reports had a store, pushing cart, bar on cart knocked over some boxes that landed on her right wrist. Reports swelling and tenderness to right wrist. No other injuries.. 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 - Social history:: Smoking status: Patient denies any tobacco usage or history of. - Family history:: not pertinent. - Hospitalizations: : No recent hospitalization is reported. ROS: 20:56 Constitutional: Negative for fever, chills, and weight loss, MS/Extremity: Positive for rn right wrist injury and swelling Neuro: Negative for numbness or tingling or weakness Exam: 20:56 Constitutional: This is a well developed, well nourished patient who is awake, alert, rn and in no acute distress. MS/ Extremity: Pulses equal, no cyanosis. Neurovascular intact. Swelling of right dorsal wrist with pain on extension of hand. No lacerations. Mild ecchymosis. No tenderness elsewhere or more proximal of the arm Vital Signs: 20:27 BP 151 / 101; Pulse 78; Resp 17; Temp 98; Pulse Ox 100% ; Weight 102.97 kg; Height 5 rv ft. 2 in. ; 21:23 BP 175 / 87; Pulse 75; Resp 16; Pulse Ox 100% on R/A; kd3 21:56 BP 114 / 81; Pulse 81; Resp 16; Pulse Ox 98% on R/A; pf1 20:27 Body Mass Index 41.52 (102.97 kg, 157.48 cm) rv MDM: 20:22 Patient medically screened. rn 21:42 Differential diagnosis: open fracture, closed fracture, contusion. Data reviewed: vital rn signs, nurses notes, radiologic studies, plain films, and as a result, I will discharge patient. Independent interpretation of the following test(s) in the Emergency Department X-Ray: My interpretation is Xray wrist images neg for fracture or dislocation per my interpretation. Counseling: I had a detailed discussion with the patient and/or guardian regarding the historical points, exam findings, and any diagnostic results supporting the discharge/admit diagnosis, radiology results, the need for outpatient follow up, to return to the emergency department if symptoms worsen or persist or if there are any questions or concerns that arise at home. Special discussion: I discussed with the patient/guardian in detail that at this point there is no indication for admission to the hospital. It is understood, however, that if the symptoms persist or worsen the patient needs to return immediately for re-evaluation. 03/03 20:33 Order name: XRAY Forearm RIGHT; Complete Time: 21:41 rn 03/03 20:38 Order name: Ice pack; Complete Time: 20:40 rv 03/03 21:48 Order name: Roberto Carlos Wrap; Complete Time: 21:53 rn Administered Medications: 21:23 Drug: traMADol PO 50 mg PO once Route: PO; kd3 21:53 Follow up: Response: No adverse reaction; Marked relief of symptoms; Pain is decreased; rv RASS: Alert and Calm (0) Disposition Summary: 03/03/23 21:44 Discharge Ordered Notes: Location: Home rn Problem: new rn Symptoms: have improved rn Condition: Stable rn Diagnosis - Contusion of right wrist rn Followup: rn - With: Private Physician - When: As needed - Reason: Recheck today's complaints, Re-evaluation by your physician Discharge Instructions: - Discharge Summary Sheet rn - Contusion rn Forms: - Medication Reconciliation Form rn - Thank You Letter rn - Antibiotic rn urology - Prescription Opioid Use rn - Patient Portal Instructions rn - Leadership Thank You Letter rn Signatures: Dispatcher [employer] EDMS Aamir Harrington MD MD rn Vicente, Ronaldo RN RN Janice Escobar RN RN kd3 Corrections: (The following items were deleted from the chart) 20:43 20:38 Wrist Right 3 View+RAD.RAD.BRZ ordered. EDMS EDMS 21:26 20:53 Wrist Right 3 View+RAD.RAD.BRZ ordered. EDMS EDMS
--- NOTE | 2023-03-03 21:44 | ER ---
Nurse's Notes [facility] Name: Etelvina Salcedo Age: 42 yrs Sex: Female : 1980 Arrival Date: 03/03/2023 Time: 20:16 Bed 11 Private MD: Diagnosis: Contusion of right wrist Presentation: 03/03 20:27 Chief complaint: Patient states: AT AROUND 1800 TODAY, VISITED A STORE, STACK OF BOXES rv FELL AND HIT THE RIGHT FOREARM. NO LACERATION NOTED. Coronavirus screen: At this time, the client does not indicate any symptoms associated with coronavirus-19. Ebola Screen: No symptoms or risks identified at this time. Initial Sepsis Screen: Does the patient meet any 2 criteria? No. Patient's initial sepsis screen is negative. Does the patient have a suspected source of infection? No. Patient's initial sepsis screen is negative. Risk Assessment: Do you want to hurt yourself or someone else? Patient reports no desire to harm self or others. Onset of symptoms was March 03, 2023. 20:27 Method Of Arrival: Ambulatory rv 20:27 Acuity: EARLINE 4 rv Triage Assessment: 20:29 General: Appears comfortable, Behavior is calm, cooperative. Pain: Complains of pain in rv right arm. Neuro: Level of Consciousness is awake, alert, obeys commands, Oriented to person, place, time, situation. Cardiovascular: Capillary refill < 3 seconds Patient's skin is warm and dry. Respiratory: Airway is patent Respiratory effort is even, unlabored. Musculoskeletal: Swelling absent. 21:59 Injury Description: Bruise sustained to right wrist. 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 - Social history:: Smoking status: Patient denies any tobacco usage or history of. - Family history:: not pertinent. - Hospitalizations: : No recent hospitalization is reported. Screenin:40 [facility] ED Fall Risk Assessment (Adult) History of falling in the last 3 months, pf1 including since admission No falls in past 3 months (0 pts) Confusion or Disorientation No (0 pts) Intoxicated or Sedated No (0 pts) Impaired Gait No (0 pts) Mobility Assist Device Used No (0 pt) Altered Elimination No (0 pt) Score/Fall Risk Level 0 - 2 = Low Risk Oriented to surroundings, Maintained a safe environment, Educated pt \T\ family on fall prevention, incl call for assistance when getting out of bed, Assessed \T\ reinforced patient's understanding of fall precautions, Provided non-skid footwear, Hourly rounding (assess needs \T\ fall precautionary measures) done, Used ambulatory aids as needed (educated on \T\ assisted with), Used gait belt as appropriate. 21:40 Abuse screen: Denies threats or abuse. Nutritional screening: No deficits noted. pf1 Tuberculosis screening: No symptoms or risk factors identified. Vital Signs: 20:27 BP 151 / 101; Pulse 78; Resp 17; Temp 98; Pulse Ox 100% ; Weight 102.97 kg; Height 5 rv ft. 2 in. ; 21:23 BP 175 / 87; Pulse 75; Resp 16; Pulse Ox 100% on R/A; kd3 21:56 BP 114 / 81; Pulse 81; Resp 16; Pulse Ox 98% on R/A; pf1 20:27 Body Mass Index 41.52 (102.97 kg, 157.48 cm) rv ED Course: 20:20 Patient arrived in ED. gm2 20:22 Aamir Harrington MD is Attending Physician. rn 20:29 Triage completed. rv 20:30 Arm band placed on right wrist. rv 20:40 Alexi Byrne RN is Primary Nurse. rv 21:20 XRAY Forearm RIGHT In Process Unspecified. EDMS 21:50 Roberto Carlos wrap to right wrist and right arm. rv 21:58 Patient has correct armband on for positive identification. Provided Education on: pain kd3 management. 21:58 No provider procedures requiring assistance completed. Patient did not have IV access kd3 during this emergency room visit. Administered Medications: 21:23 Drug: traMADol PO 50 mg PO once Route: PO; kd3 21:53 Follow up: Response: No adverse reaction; Marked relief of symptoms; Pain is decreased; rv RASS: Alert and Calm (0) Medication: 21:59 VIS not applicable for this client. kd3 Outcome: 21:44 Discharge ordered by . rn 21:58 Discharged to home ambulatory, kd3 21:58 Condition: stable 21:58 Discharge instructions given to patient, Instructed on discharge instructions, follow up and referral plans. Demonstrated understanding of instructions, follow-up care, 21:59 Patient left the ED. kd3 Signatures: Dispatcher [employer] Aamir Dominguez MD MD rn Vicente, Ronaldo RN RN Janice Escobar RN RN kd3 Neli Boyd RN RN yesi1 Aiyana Rivera [facility]
[2023-03-03 22:29] VITALS: TEMP 98
[2023-03-03 22:31] VITALS: BP 114/81; O2SAT 98
== END 2023-03-03 21:59 | disposition home or self-care (01) ==
LOC: ER 20:16
DX: S60.211A Contusion of right wrist, initial encounter (principal); W20.8XXA Other cause of strike by thrown, projected or falling object, initial encounter; Y93.89 Activity, other specified; Y92.512 Supermarket, store or market as the place of occurrence of the external cause; E11.9 Type 2 diabetes mellitus without complications; Z90.49 Acquired absence of other specified parts of digestive tract; Z98.84 Bariatric surgery status
CPT/HCPCS: 99283

== ENCOUNTER 2023-04-19 08:07 | Emergency (ER) | payer OTHER ==
--- NOTE | 2023-04-19 09:17 | RAD REPORT ---
EXAM DESCRIPTION: Ila Alston (2 Views)04/19/2023 9:06 am CLINICAL HISTORY: Chest pain/back pain COMPARISON: 2019 FINDINGS: The lungs appear clear of acute infiltrate. The heart is normal size IMPRESSION: No acute abnormalities displayed
[2023-04-19 09:45] LABS: Specific Gravity 1.025 (1.005-1.030)
[2023-04-19 09:46] LABS: Urine Bacteria <20 /HPF (<20); Urine Mucus 2+ /HPF (None Seen); Urine Protein Negative (Negative); Urine Urobilinogen Normal (Normal)
[2023-04-19] MEDS ORDERED: DIAZEPAM 5 MG TABLET ONE (09:50)
[2023-04-19] MEDS ORDERED: HYDROCODONE/APAP 5/325 MG TAB ONE (09:50)
[2023-04-19] MEDS ORDERED: KETOROLAC 30 MG/ML INJ ONE (11:17)
--- NOTE | 2023-04-19 12:32 | EDPHYS ---
Physician Documentation [facility] Name: Etelvina Salcedo Age: 42 yrs Sex: Female : 1980 Arrival Date: 04/19/2023 Time: 08:07 Bed 6 Private MD: ED Physician Yan Bowens HPI: 04/19 08:48 This 42 yrs old Female presents to ER via Ambulatory with complaints of Back ms3 Pain. 08:48 42-year-old female past medical history of diabetes, hypokalemia, low iron, PCOS, ms3 seizures presents to the emergency department for right thoracic back pain that began 1 and half months prior to arrival. Patient states at 3 AM the pain became worse. Patient states the discomfort is a 9/10 and radiates to her rib. Patient denies fevers, chills, nausea, vomiting, abdominal pain. Historical: - Allergies: 08:30 No Known Allergies; hb - Home Meds: 08:30 None [Active]; hb - PMHx: 08:25 diabetes mellitus; Hypokalemia; Low Iron; PCOS; Seizure; ld1 - PSHx: 08:25 Gastric Bypass; Cholecystectomy; ld1 08:30 Appendectomy; Exploratory laparotomy; hb - Immunization history:: Adult Immunizations up to date. - Social history:: Smoking status: Patient denies any tobacco usage or history of. ROS: 08:48 Constitutional: Negative for fever, and chills. Neck: Negative for injury, pain, and ms3 swelling, Cardiovascular: Negative for chest pain, and palpitations. Respiratory: Negative for shortness of breath, cough, wheezing, and pleuritic chest pain, Abdomen/GI: Negative for abdominal pain, nausea, vomiting, diarrhea, and constipation, 08:48 Back: Positive for Right sided thoracic back pain, 08:48 All other systems are negative, Exam: 08:48 Constitutional: This is a well developed, well nourished patient who is awake, alert, ms3 and in no acute distress. Head/Face: Normocephalic, atraumatic. Neck: Trachea midline, no cervical lymphadenopathy. Supple, full range of motion without nuchal rigidity, or vertebral point tenderness. No Meningismus. Chest/axilla: Normal chest wall appearance and motion. Nontender with no deformity. Cardiovascular: Regular rate and rhythm with a normal S1 and S2. No gallops, murmurs, or rubs. Normal PMI, no JVD. No pulse deficits. Respiratory: Lungs have equal breath sounds bilaterally, clear to auscultation and percussion. No rales, rhonchi or wheezes noted. No increased work of breathing, no retractions or nasal flaring. Abdomen/GI: Soft, non-tender, with normal bowel sounds. No distension or tympany. No guarding or rebound. No evidence of tenderness throughout. MS/ Extremity: Pulses equal, no cyanosis. Neurovascular intact. Full, normal range of motion. Vital Signs: 08:28 BP 137 / 97; Pulse 80; Resp 16; Temp 97.9(TE); Pulse Ox 100% on R/A; Weight 104.33 kg; hb Height 5 ft. 2 in. ; Pain 9/10; 09:14 BP 142 / 84; Pulse 79; Resp 18; Pulse Ox 98% on R/A; ld1 10:06 BP 119 / 78; Pulse 66; Resp 18; Pulse Ox 97% on R/A; ld1 10:49 BP 119 / 75; Pulse 66; Resp 18; Pulse Ox 99% on R/A; ld1 12:16 BP 112 / 65; Pulse 62; Resp 18; Pulse Ox 100% on R/A; ld1 08:28 Body Mass Index 42.07 (104.33 kg, 157.48 cm) hb 08:28 Pain Scale: Adult hb MDM: 08:47 Patient medically screened. ms3 08:48 Differential diagnosis: Pneumonia vs Muscle spasm vs PTX. ms3 12:31 Data reviewed: vital signs, nurses notes, lab test result(s), radiologic studies, plain ms3 films, and as a result, I will discharge patient. I considered the following discharge prescriptions or medication management in the emergency department Medications were administered in the Emergency Department. See MAR. Independent interpretation of the following test(s) in the Emergency Department X-Ray: My interpretation is Chest x-ray images reviewed by me do not reveal pneumonia. 04/19 08:25 Order name: Urinalysis W/Microscopic; Complete Time: 11:00 ms3 04/19 08:25 Order name: Test, Urine; Complete Time: 11:00 ms3 04/19 09:49 Order name: Urine Culture EDND 04/19 08:48 Order name: Chest Pa And Lat (2 Views) XRAY; Complete Time: 09:19 ms3 Administered Medications: 09:54 Drug: HYDROcodone-acetaminophen PO 5 mg-325 mg 1 tabs PO once Route: PO; ld1 11:00 Follow up: Response: No adverse reaction; Pain is unchanged, physician notified nj1 09:54 Drug: Diazepam PO 5 mg PO once Route: PO; ld1 11:00 Follow up: Response: No adverse reaction nj1 11:05 Drug: TORadol - Ketorolac IM 15 mg IM once Route: IM; Site: right deltoid; nj1 Disposition Summary: 04/19/23 12:31 Discharge Ordered Notes: Location: Home ms3 Condition: Stable ms3 Diagnosis - Back pain ms3 Followup: ms3 - With: Osman Gonzalez DO - When: 2 - 3 days - Reason: Recheck today's complaints Discharge Instructions: - Discharge Summary Sheet ms3 - Acute Back Pain, Adult ms3 Forms: - Medication Reconciliation Form ms3 - Thank You Letter ms3 - Antibiotic Education ms3 - Prescription Opioid Use ms3 - Patient Portal Instructions ms3 - Leadership Thank You Letter ms3 Prescriptions: - Ibuprofen 600 mg Oral Tablet - take 1 tablet ORAL route every 6 hours As needed take with food; 30 tablet; ms3 Refills: 0, Product Selection Permitted - Cyclobenzaprine 5 mg Oral Tablet - take 1 tablet ORAL route 3 times per day As needed; 15 tablet; Refills: 0, ms3 Product Selection Permitted Signatures: Dispatcher [employer] Khadijah Tarango RN RN Yan Bowens DO DO ms3 Elvira Bowens RN RN ld1 Kiesha Michele RN RN nj1
--- NOTE | 2023-04-19 12:32 | ER ---
Nurse's Notes [facility] Name: Etelvina Salcedo Age: 42 yrs Sex: Female : 1980 Arrival Date: 04/19/2023 Time: 08:07 Bed 6 Private MD: Diagnosis: Back pain Presentation: 04/19 08:28 Chief complaint: Worsening intermittent right mid back pain x 2 months, pain woke her hb from sleep last night and has become constant. Took Tylenol at 0400 today. Coronavirus screen: At this time, the client does not indicate any symptoms associated with coronavirus-19. Ebola Screen: No symptoms or risks identified at this time. Initial Sepsis Screen: Does the patient meet any 2 criteria? No. Patient's initial sepsis screen is negative. Does the patient have a suspected source of infection? No. Patient's initial sepsis screen is negative. Risk Assessment: Do you want to hurt yourself or someone else? Patient reports no desire to harm self or others. Onset of symptoms was April 19, 2023. 08:28 Method Of Arrival: Ambulatory hb 08:28 Acuity: EARLINE 3 hb Historical: - Allergies: 08:30 No Known Allergies; hb - Home Meds: 08:30 None [Active]; hb - PMHx: 08:25 diabetes mellitus; Hypokalemia; Low Iron; PCOS; Seizure; ld1 - PSHx: 08:25 Gastric Bypass; Cholecystectomy; ld1 08:30 Appendectomy; Exploratory laparotomy; hb - Immunization history:: Adult Immunizations up to date. - Social history:: Smoking status: Patient denies any tobacco usage or history of. Screenin:14 [facility] ED Fall Risk Assessment (Adult) History of falling in the last 3 months, ld1 including since admission No falls in past 3 months (0 pts). Abuse screen: Denies threats or abuse. Denies injuries from another. Nutritional screening: No deficits noted. Tuberculosis screening: No symptoms or risk factors identified. Assessment: 09:14 General: Appears in no apparent distress. uncomfortable, Behavior is calm, cooperative, ld1 appropriate for age. Pain: Complains of pain in back Pain does not radiate. Pain currently is 8 out of 10 on a pain scale. Quality of pain is described as throbbing, Pain began suddenly, Is continuous. Neuro: Level of Consciousness is awake, alert, obeys commands, Oriented to person, place, time, situation. Cardiovascular: Capillary refill < 3 seconds Patient's skin is warm and dry. Respiratory: Airway is patent Respiratory effort is even, unlabored. GI: Abdomen is round non-distended. : No signs and/or symptoms were reported regarding the genitourinary system. EENT: No signs and/or symptoms were reported regarding the EENT system. Derm: No signs and/or symptoms reported regarding the dermatologic system. Musculoskeletal: No signs and/or symptoms reported regarding the musculoskeletal system. 11:00 Reassessment: Patient appears in no apparent distress at this time. Patient and/or nj1 family updated on plan of care and expected duration. Pain level reassessed. Patient is alert, oriented x 3, equal unlabored respirations, skin warm/dry/pink. Pain: Complains of pain in back Pain currently is 8 out of 10 on a pain scale. Vital Signs: 08:28 BP 137 / 97; Pulse 80; Resp 16; Temp 97.9(TE); Pulse Ox 100% on R/A; Weight 104.33 kg; hb Height 5 ft. 2 in. ; Pain 9/10; 09:14 BP 142 / 84; Pulse 79; Resp 18; Pulse Ox 98% on R/A; ld1 10:06 BP 119 / 78; Pulse 66; Resp 18; Pulse Ox 97% on R/A; ld1 10:49 BP 119 / 75; Pulse 66; Resp 18; Pulse Ox 99% on R/A; ld1 12:16 BP 112 / 65; Pulse 62; Resp 18; Pulse Ox 100% on R/A; ld1 08:28 Body Mass Index 42.07 (104.33 kg, 157.48 cm) hb 08:28 Pain Scale: Adult hb ED Course: 08:09 Patient arrived in ED. mg5 08:15 Yan Bowens DO is Attending Physician. ms3 08:30 Triage completed. hb 08:30 Arm band placed on. hb 09:06 Chest Pa And Lat (2 Views) XRAY In Process Unspecified. EDMS 09:14 Patient has correct armband on for positive identification. Placed in gown. Bed in low ld1 position. Call light in reach. Side rails up X2. playground monitor on. Pulse ox on. NIBP on. Door closed. Noise minimized. Warm blanket given. 09:14 No provider procedures requiring assistance completed. ld1 09:23 Elvira Bowens, RN is Primary Nurse. ld1 09:33 Test, Urine Sent. ld1 09:33 Urinalysis W/Microscopic Sent. ld1 12:30 Osman Gonzalez DO is Referral Physician. ms3 12:48 Patient did not have IV access during this emergency room visit. ld1 Administered Medications: 09:54 Drug: HYDROcodone-acetaminophen PO 5 mg-325 mg 1 tabs PO once Route: PO; ld1 11:00 Follow up: Response: No adverse reaction; Pain is unchanged, physician notified nj1 09:54 Drug: Diazepam PO 5 mg PO once Route: PO; ld1 11:00 Follow up: Response: No adverse reaction nj1 11:05 Drug: TORadol - Ketorolac IM 15 mg IM once Route: IM; Site: right deltoid; nj1 Medication: 10:06 VIS not applicable for this client. ld1 Outcome: 12:31 Discharge ordered by . ms3 12:48 Discharged to home ambulatory, ld1 12:48 Condition: stable 12:48 Discharge instructions given to patient, Instructed on discharge instructions, follow up and referral plans. Demonstrated understanding of instructions, follow-up care, 12:48 Patient left the ED. ld1 Signatures: Dispatcher [employer] EDMS Khadijah Parker RN MAME Yan Bowens DO DO ms3 Elvira Bowens RN RN ld1 Kiesha Michele RN RN nj Danielle Omalley mg5
[2023-04-19 13:46] VITALS: TEMP 97.9
[2023-04-19 13:49] VITALS: BP 112/65; O2SAT 100
== END 2023-04-19 12:48 | disposition home or self-care (01) ==
LOC: ER 08:07
DX: M54.9 Dorsalgia, unspecified (principal)
CPT/HCPCS: 71046; 81001; 81025; 87086; 87088

== ENCOUNTER 2024-04-26 17:05 | Emergency (ER) | payer SELFPAY ==
[2024-04-26 18:26] LABS: Specific Gravity 1.011 (1.005-1.030)
[2024-04-26 18:41] LABS: Specific Gravity 1.011 (1.005-1.030); Urine Bacteria <20 /HPF (<20); Urine Bilirubin NEGATIVE (Negative); Urine Blood Trace (Negative); Urine Clarity Extremely Turbid (Clear); Urine Color Light-Yellow (Yellow); Urine Crystals Unidentified Few /HPF (None Seen); Urine Culture Reflex Order REFLEXED; Urine Glucose NEGATIVE (Negative); Urine Ketones NEGATIVE (Negative); Urine Micro Reflex YN NO BILL MICROSCOPIC; Urine Mucus Slight /HPF (None Seen); Urine Nitrite NEGATIVE (Negative); Urine Protein NEGATIVE (Negative); Urine Urobilinogen Normal (Normal); Urine WBC 20-50 /HPF (<5); Urine pH 5.5 (5.0-7.0)
--- NOTE | 2024-04-26 18:56 | ER ---
Nurse's Notes [facility] Name: Etelvina Salcedo Age: 43 yrs Sex: Female : 1980 Arrival Date: 04/26/2024 Time: 17:05 Bed 10 Private MD: Diagnosis: UTI/ Urinary tract infection, site not specified;Encounter for issue of repeat prescription Presentation: 04/26 17:12 Chief complaint: Patient states: pt reports needing a refill of her valtrex. pt also cm10 reports having discharge and burning with urination. Coronavirus screen: Client denies travel out of the [place] in the last 14 days. Ebola Screen: Patient denies travel to an Ebola-affected area in the 21 days before illness onset. Initial Sepsis Screen: Does the patient meet any 2 criteria? No. Patient's initial sepsis screen is negative. Does the patient have a suspected source of infection? No. Patient's initial sepsis screen is negative. Risk Assessment: Do you want to hurt yourself or someone else? Patient reports no desire to harm self or others. Onset of symptoms was April 26, 2024. 17:12 Method Of Arrival: Ambulatory cm10 17:12 Acuity: EARLINE 4 cm10 Triage Assessment: 17:14 General: Appears in no apparent distress. comfortable, Behavior is calm, cooperative. cm10 Neuro: No deficits noted. Level of Consciousness is awake, alert, obeys commands, Oriented to person, place, time, situation, Appropriate for age. Respiratory: No deficits noted. Airway is patent Respiratory effort is even, unlabored, Respiratory pattern is regular, symmetrical. 17:14 : Reports burning with urination, discharge, urinary frequency. cm10 17:14 Derm: No deficits noted. Skin is intact, Skin is pink, warm \T\ dry. Musculoskeletal: No cm10 deficits noted. Range of motion: intact in all extremities. 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 - Infectious Disease History:: Denies. - Social history:: Smoking status: Patient denies any tobacco usage or history of. Screenin:31 [facility] ED Fall Risk Assessment (Adult) History of falling in the last 3 months, hb including since admission No falls in past 3 months (0 pts) Confusion or Disorientation No (0 pts) Intoxicated or Sedated No (0 pts) Impaired Gait No (0 pts) Mobility Assist Device Used No (0 pt) Altered Elimination No (0 pt) Score/Fall Risk Level 0 - 2 = Low Risk Oriented to surroundings, Maintained a safe environment, Educated pt \T\ family on fall prevention, incl call for assistance when getting out of bed. Abuse screen: Denies threats or abuse. Denies injuries from another. Nutritional screening: No deficits noted. Tuberculosis screening: No symptoms or risk factors identified. Assessment: 17:30 General: Appears in no apparent distress. Behavior is calm, cooperative. Pain: Pain hb currently is 7 out of 10 on a pain scale. Neuro: Level of Consciousness is awake, alert, obeys commands, Oriented to person, place, time, situation. Cardiovascular: Patient's skin is warm and dry. Respiratory: Respiratory effort is even, unlabored, Respiratory pattern is regular, symmetrical. : Reports painful rash on genitals and perineum, out of antivirals. 18:31 Reassessment: Patient appears in no apparent distress at this time. Patient and/or hb family updated on plan of care and expected duration. Pain level reassessed. Patient is alert, oriented x 3, equal unlabored respirations, skin warm/dry/pink. Vital Signs: 17:12 BP 174 / 101; Pulse 96; Resp 16; Temp 98.7; Pulse Ox 100% ; Weight 102.06 kg; Height 5 cm10 ft. 2 in. ; Pain 7/10; 17:12 Body Mass Index 41.15 (102.06 kg, 157.48 cm) cm10 17:12 Pain Scale: Adult cm10 ED Course: 17:08 Patient arrived in ED. ra3 17:08 Barrera Jean PA is PHCP. cp 17:14 Triage completed. cm10 17:14 Arm band placed on right wrist. Patient placed in an exam room. cm10 17:15 Jeff Cordero MD is Attending Physician. cp 18:29 Khadijah Parker RN is Primary Nurse. hb 18:31 Patient has correct armband on for positive identification. Provided Education on: hb tests, result times. 18:31 No provider procedures requiring assistance completed. Patient did not have IV access hb during this emergency room visit. Administered Medications: No medications were administered Medication: 18:31 VIS not applicable for this client. hb Outcome: 18:55 Discharge ordered by . harmony 19:07 Discharged to home ambulatory, cm10 19:07 Condition: good 19:07 Discharge instructions given to patient, Instructed on discharge instructions, follow up and referral plans. medication usage, Demonstrated understanding of instructions, follow-up care, medications, Prescriptions given X 3, 19:07 Patient left the ED. cm10 Signatures: Barrera Jean PA PA cp Baxter, Heather, RN RN Susan Chicas RN RN 10 Fiorella Mcguire 3
--- NOTE | 2024-04-26 18:56 | EDPHYS ---
Physician Documentation [facility] Name: Etelvina Salcedo Age: 43 yrs Sex: Female : 1980 Arrival Date: 04/26/2024 Time: 17:05 Bed 10 Private MD: ED Physician Jeff Cordero HPI: 04/26 17:20 This 43 yrs old Female presents to ER via Ambulatory with complaints of cp Medication Refill. 17:20 The patient presents to the emergency department requesting refill(s) for: Acyclovir. cp 17:20 The patient chronically suffers from genital herpes after primo virus from cp unfaithful spouse. Patient requesting RX for Acyclovir due to recent outbreak. Patient denies any other complaints. 17:20 Associated signs and symptoms: Pertinent positives: dysuria. 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 - Infectious Disease History:: Denies. - Social history:: Smoking status: Patient denies any tobacco usage or history of. ROS: 17:25 Constitutional: history per HPI cp Exam: 17:30 Constitutional: The patient appears in no acute distress, alert, awake, comfortable, cp well developed, well nourished, obese, 17:30 Head/Face: Normocephalic, atraumatic. cp 17:30 Chest/axilla: Inspection: normal, 17:30 Cardiovascular: Rate: normal, 17:30 Respiratory: the patient does not display signs of respiratory distress, Respirations: normal, no use of accessory muscles, no retractions, labored breathing, is not present, 17:30 Abdomen/GI: Exam negative for discomfort, distension, guarding, Inspection: abdomen appears normal, 17:30 : Pelvic Exam: the exam is deferred, Vital Signs: 17:12 BP 174 / 101; Pulse 96; Resp 16; Temp 98.7; Pulse Ox 100% ; Weight 102.06 kg; Height 5 cm10 ft. 2 in. ; Pain 7/10; 17:12 Body Mass Index 41.15 (102.06 kg, 157.48 cm) cm10 17:12 Pain Scale: Adult cm10 MDM: 17:15 Medical Screening Exam initiated cp 18:00 Differential diagnosis: STD, uti, candidiasis. cp 18:55 Data reviewed: vital signs, nurses notes, lab test result(s), and as a result, I will cp discharge patient. 18:55 Counseling: I had a detailed discussion with the patient and/or guardian regarding the cp historical points, exam findings, and any diagnostic results supporting the discharge/admit diagnosis, lab results, to return to the emergency department if symptoms worsen or persist or if there are any questions or concerns that arise at home. 04/26 17:17 Order name: Urinalysis W/Microscopic; Complete Time: 18:50 cp 04/26 18:50 Interpretation: [facility] Extremely Turbid; UBLD Trace; UESTR 500; UWBC 20-50; URBC 5-10; cp Reviewed. 04/26 17:17 Order name: Test, Urine; Complete Time: 18:39 cp 04/26 18:44 Order name: Urine Culture EDMS Administered Medications: No medications were administered Disposition Summary: 04/26/24 18:55 Discharge Ordered Notes: Location: Home cp Problem: new cp Symptoms: are unchanged cp Condition: Stable cp Diagnosis - UTI/ Urinary tract infection, site not specified cp - Encounter for issue of repeat prescription cp Followup: cp - With: Private Physician - When: 1 week - Reason: symptoms continue Discharge Instructions: - Discharge Summary Sheet cp - Medicine Refill at the Emergency Department cp - Urinary Tract Infection, Adult cp Forms: - Medication Reconciliation Form cp - Antibiotic Education cp - Prescription Opioid Use cp - Patient Portal Instructions cp - Leadership Thank You Letter cp Prescriptions: - Pyridium 200 mg Oral tablet - take 1 tablet ORAL route every 8 hours for 3 days; 6 tablet; Refills: 0, cp Product Selection Permitted - Acyclovir 400 mg Oral Tablet - take 1 tablet ORAL route every 8 hours for 5 days; 15 tablet; Refills: 0, cp Product Selection Permitted - Macrobid 100 mg Oral Capsule - take 1 capsule ORAL route every 12 hours for 7 days; 14 capsule; Refills: 0, cp Product Selection Permitted Signatures: Dispatcher [employer] EDGA Barrera Jean PA PA cp Martinez, Clarissa RN RN cm10 Corrections: (The following items were deleted from the chart) 17:17 17:17 Urinalysis W/Microscopic+U.LAB.BRZ ordered. EDMS EDMS 17: 17:17 Test, Urine+UC.LAB.BRZ ordered. EDGA EDMS 04/27 17:22 12 17:20 The patient chronically suffers from genital herpes. Patient requesting RX cp for Acyclovir due to recent outbreak. Patient denies any other complaints, cp
[2024-04-26 19:52] VITALS: BP 174/101; TEMP 98.7; O2SAT 100
== END 2024-04-26 19:07 | disposition home or self-care (01) ==
LOC: ER 17:05
DX: N39.0 Urinary tract infection, site not specified (principal); B00.9 Herpesviral infection, unspecified; E87.6 Hypokalemia; E16.2 Hypoglycemia, unspecified; E28.2 Polycystic ovarian syndrome; Z76.0 Encounter for issue of repeat prescription
CPT/HCPCS: 81001; 81025; 87086; 87088; 99283